=== PATIENT | female | born 1945 | race Caucasian/White ===

== ENCOUNTER → 2020-09-30 13:46 | Outpatient (BNVA) | payer MEDICARE, SELFPAY | PROVIDERS: PCP Internal Medicine; Visit Provider Internal Medicine ==

== ENCOUNTER → 2020-11-03 13:47 | Outpatient (REF) | payer MEDICARE, OTHER, SELFPAY ==
--- NOTE | 2020-11-03 14:00 | CA_ITS ---
Transthoracic Echocardiogram Patient (Last, First, Middle): Silvia Watson, Gender: Female Date of : 1945 Age: 75 Procedure Date: 11/03/2020 Procedure Type: Transthoracic Echocardiogram Location: OP Height: 162.56 cm Weight: 117.94 kg BSA: 2.19 m2 Heart Rate: bpm BP: 120 / 60 mmHg Wine Steward: ANTONIETA Vargas MD: Alberto Caceres MD Slip Cover Estimator: Alberto Caceres MD Symptoms: I35.0 NON RHEUMATIC AV STENOSIS Study Quality: Technically Difficult/contrast ECG Rhythm: Sinus Conclusions: - 1. Normal LV systolic function with mild LVH with impaired relaxation filling pattern with elevated filling pressures 2. Moderately dilated left atrium 3. Moderate to severe aortic stenosis with mean gradient of 39 mm mercury 4. No gross pericardial effusion Findings Procedure Information Contrast agent, definity, is being given per protocol without apparent complications. Left Ventricle Normal left ventricular size and systolic function. There is mildly increased left ventricular wall thickness. The visually estimated ejection fraction is between 65-70%. Spectral Doppler is indicative of an impaired relaxation filling pattern. Elevated filling pressures. E/E prime ratio is >15, consistent with elevated filling pressures. Right Ventricle Normal right ventricular cavity size and systolic function. Atria The left atrium is moderately dilated. Interatrial shunt cannot be excluded. The right atrium was not well visualized. Aortic Valve The aortic valve was not well visualized. There is moderate calcification of the aortic valve. There is moderate to severe aortic valve stenosis. The peak aortic gradient is 76 mmHg.The mean gradient is 39 mmHg. The aortic valve area is 0.91 cm2. There is no aortic valve regurgitation. Gradients measured on this study are further elevated compared to prior study, dimensionless index still remains at 0.27, consistent with moderate to severe aortic stenosis. Mitral Valve There is moderate anterior mitral leaflet thickening. There is severe mitral annular calcification. There is no mitral valve regurgitation. Cannot rule out mitral stenosis Pulmonic Valve The pulmonic valve was not well visualized. Tricuspid Valve The tricuspid valve was not well visualized. Tricuspid regurgitation envelope is inadequate for calculation of right ventricular systolic pressure. Great Vessels All visible segments of the aorta are normal in size. The pulmonary artery was not well visualized. Venous The inferior vena cava was not well visualized. Pericardium/Pleural There is no evidence of pericardial effusion. Prior Study Comparison No significant change compared to prior study dated: 01/16/2020. Measurements 2D Linear Measurements IVSd: 1.25 0.6-0.9/0.6-1.0 cm LVIDd: 4.62 3.9-5.3/4.2-5.9 cm LVIDd Index: 2.11 2.4-3.2/2.2-3.1 cm/m2 LVIDs: 3.19 2.0-3.6 cm LVPWd: 1.19 0.7-1.1 cm Ao Root: 3.00 2.1-3.5 cm LA Diam: 4.00 2.7-3.8/3.0-4.0 cm LAIDs Index: 1.83 1.5-2.3 cm/m2 LV Mass: 263.42 67-162/88-224 g LV Mass Index: 120.28 43-95/49-115 g/m2 LVOT Diam: 2.00 3.0+(-)1.3 cm Mitral Valve MV Pk E: 1.64 MV PK A: 2.12 MV Decel Time: 250.00 E/A: 0.80 E'Lateral: 6.67 E'Medial: 5.90 E/E' Med: 27.80 E/E' Lat: 24.60 PHT: 73.00 MVA PHT: 3.01 Decel [place]: 6.56 Aortic Valve AoV Pk Luis: 4.36 AoV Mn Luis: 2.84 AoV VTI: 0.87 AoV Pk Grad: 76.00 Aov Mn Grad: 39.00 MODE Cont.VTI: 0.91 LVOT LVOT Pk Luis: 1.29 LVOT Mn Luis: 0.75 LVOT VTI: 0.25 LVOT Pk Grad: 7.00 LVOT Mn Grad: 3.00 LVOT Diam: 2.00 LVOT Area: 3.14 Diastolic Function MV Pk E: 1.64 MV Pk A: 2.12 E/A: 0.80 E'Medial: 5.90 E/E' Med: 27.80 E' Laterial: 6.67 E/E' Lat: 24.60 Great Vessels Aorta Ao Root-2D: 3.00 2.0-3.7 cm Ao Asc: 3.10 2.1-3.4 cm Updated in Other Vendor System with Status of Final Alberto Caceres MD electronically signed on 11/03/2020 4:31:00 PM with status of Final
== END ==
LOC: HO.CARD 13:47
PROVIDERS: Visit Provider Internal Medicine Cardiovascular Disease
DX: I35.0 Nonrheumatic aortic (valve) stenosis (principal)
CPT/HCPCS: 93306; Q9957

== ENCOUNTER → 2020-11-17 13:33 | Outpatient (BNVA) | payer MEDICARE, OTHER, SELFPAY | PROVIDERS: Visit Provider Internal Medicine Cardiovascular Disease | DX: R06.02 Shortness of breath (principal); I35.0 Nonrheumatic aortic (valve) stenosis; I10 Essential (primary) hypertension; Z79.899 Other long term (current) drug therapy | CPT/HCPCS: 99212 ==

== ENCOUNTER → 2021-02-02 10:25 | Outpatient (BNVA) | payer MEDICARE, OTHER, SELFPAY | PROVIDERS: PCP Internal Medicine; Visit Provider Internal Medicine | DX: J44.9 Chronic obstructive pulmonary disease, unspecified (principal); G47.33 Obstructive sleep apnea (adult) (pediatric); G47.34 Idiopathic sleep related nonobstructive alveolar hypoventilation; F17.200 Nicotine dependence, unspecified, uncomplicated | CPT/HCPCS: Q3014 ==

== ENCOUNTER 2021-04-14 14:30 | Outpatient (REF) | payer MEDICARE, OTHER, SELFPAY ==
--- NOTE | ~2021-04-14 | CT_ITS ---
EXAMINATION: CT CHEST SCREENING CLINICAL INFORMATION: Current smoker. 100 pack-year history. COMPARISON: Previous chest CT scans most recent September 2019 TECHNIQUE: Multidetector volumetric CT imaging of the chest is performed without contrast using low dose technique. Additional 2D coronal and sagittal reformatted images and axial 3D maximum intensity projection (MIP) images are generated on the CT workstation. This CT examination was performed using dose optimization techniques as appropriate, variously including the following: *Automated exposure control *Adjustment of mA and/or kV according to patient size (this includes techniques or standardized protocols for targeted exams where dose is matched to indication/reason for exam; i.e. extremities or head) *Use of iterative reconstruction technique DLP: 118 mGy-cm FINDINGS: LUNGS: Exam is limited due to artifact from respiratory motion. There are small upper lobe micronodules, largest measuring 4 mm in the left upper lobe axial image 143 series 5. There is minimal scarring or subsegmental atelectasis in the right middle lobe. The lungs are otherwise clear. No endobronchial or endotracheal lesion is seen. MEDIASTINUM: There is mediastinal lymphadenopathy that is stable. Largest lymph node is a right precarinal lymph node measuring 1.4 cm in short axis axial image 23. The heart does not appear enlarged. There is coronary artery and aortic valve calcification. There is no pericardial effusion. The thoracic aorta is normal in caliber. PLEURA: There is no pleural effusion. No pleural mass or thickening. AXILLA: No lymphadenopathy. UPPER ABDOMEN: Unremarkable OSSEOUS STRUCTURES: There are degenerative changes of the spine. CT/CT lung screening IMPRESSION: Limited exam due to motion. Small pulmonary nodules or micronodules. Stable mediastinal lymphadenopathy. Coronary artery and aortic valve calcification. ASSESSMENT: Lung-RADS category 2: Benign RECOMMENDATION: Annual low-dose chest CT follow-up recommended.
== END 2021-04-14 14:31 | disposition home or self-care (01) ==
LOC: HO.CT 14:30
PROVIDERS: PCP Internal Medicine; Visit Provider Physician Assistant Medical
DX: Z12.2 Encounter for screening for malignant neoplasm of respiratory organs (principal); F17.210 Nicotine dependence, cigarettes, uncomplicated
CPT/HCPCS: 71271

== ENCOUNTER → 2021-05-14 13:03 | Outpatient (REF) | payer MEDICARE, OTHER, SELFPAY ==
--- NOTE | 2021-05-14 13:07 | CA_ITS ---
Transthoracic Echocardiogram Patient (Last, First, Middle): Silvia Watson, Gender: Female Date of : 1945 Age: 75 Procedure Date: 05/14/2021 Procedure Type: Transthoracic Echocardiogram Location: OP Height: 162.56 cm Weight: 117.94 kg BSA: 2.19 m2 Heart Rate: bpm BP: 120 / 80 mmHg Film Laboratory Technician: ANTONIETA Referring MD: Alberto Caceres MD Small Appliance Assembly Supervisor: Alberto Caceres MD Symptoms: I35.0 - Nonrheumatic aortic (valve) stenosis Study Quality: Technically Difficult/Contrast ECG Rhythm: Sinus Conclusions: - 1. Normal LV systolic function with impaired relaxation filling pattern with elevated filling pressures 2. Moderately dilated left atrium 3. Severe aortic stenosis with mean gradient of 50 mm of mercury 4. 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 Normal RV systolic pressure 6. No gross pericardial effusion Findings Left Ventricle Normal left ventricular size, thickness, and systolic function. The visually estimated ejection fraction is between 60-65%. Spectral Doppler is indicative of an impaired relaxation filling pattern. Elevated filling pressures. E/E prime ratio is >15, consistent with elevated filling pressures. Right Ventricle Normal right ventricular cavity size and systolic function. Atria The left atrium is moderately dilated. Interatrial shunt cannot be excluded. The right atrium is mildly dilated. Aortic Valve There is moderate calcification of the aortic valve. There is moderate thickening of the aortic valve. There is severe aortic valve stenosis. The peak aortic gradient is 82 mmHg.The mean gradient is 50 mmHg. The aortic valve area is 0.72 cm2. There is no aortic valve regurgitation. Mitral Valve There is moderate anterior and severe posterior mitral leaflet thickening. There is severe mitral annular calcification. There is trace mitral valve regurgitation. There is mild mitral valve stenosis. Pulmonic Valve The pulmonic valve was not well visualized. Tricuspid Valve Likely normal tricuspid valve structure and function. There is mild tricuspid valve regurgitation. The right ventricular systolic pressure is normal. The right ventricular systolic pressure is 17 mmHg. Normal right atrial pressure. There is no evidence of pulmonary hypertension. Great Vessels All visible segments of the aorta are normal in size. The pulmonary artery was not well visualized. Venous The inferior vena cava is normal in size and collapses greater than 50% with inspiration. Pericardium/Pleural There is no evidence of pericardial effusion. Prior Study Comparison Changes noted compared to prior study dated: 11/03/2020. Aortic stenosis is severe Measurements 2D Linear Measurements IVSd: 0.92 0.6-0.9/0.6-1.0 cm LVIDd: 5.51 3.9-5.3/4.2-5.9 cm LVIDd Index: 2.52 2.4-3.2/2.2-3.1 cm/m2 LVIDs: 3.73 2.0-3.6 cm LVPWd: 1.03 0.7-1.1 cm Ao Root: 2.70 2.1-3.5 cm LA Diam: 4.20 2.7-3.8/3.0-4.0 cm LAIDs Index: 1.92 1.5-2.3 cm/m2 LV Mass: 257.97 67-162/88-224 g LV Mass Index: 117.79 43-95/49-115 g/m2 LVOT Diam: 2.00 3.0+(-)1.3 cm Mitral Valve MV VTI: 0.51 MV Pk Luis: 2.24 MV Mn Luis: 1.21 MV Pk Grad: 20.00 MV Mn Grad: 7.00 MV Pk E: 1.40 MV PK A: 2.01 MV Decel Time: 311.00 E/A: 0.70 E'Lateral: 5.00 E'Medial: 4.79 E/E' Med: 29.20 E/E' Lat: 28.00 PHT: 97.00 MVA PHT: 2.27 MVA Continuity: 1.28 Decel [place]: 4.72 Aortic Valve AoV Pk Luis: 4.53 AoV Mn Luis: 3.39 AoV VTI: 0.92 AoV Pk Grad: 82.00 Aov Mn Grad: 50.00 MODE Cont.VTI: 0.72 LVOT LVOT Pk Luis: 1.04 LVOT Mn Luis: 0.74 LVOT VTI: 0.21 LVOT Pk Grad: 4.00 LVOT Mn Grad: 3.00 LVOT Diam: 2.00 LVOT Area: 3.14 Diastolic Function MV Pk E: 1.40 MV Pk A: 2.01 E/A: 0.70 E'Medial: 4.79 E/E' Med: 29.20 E' Laterial: 5.00 E/E' Lat: 28.00 Right Ventricle TAPSE (mm): 2.14 TVS' Luis: 15.60 Tricuspid Valve TR Pk Luis: 1.90 TR Pk Grad: 14.00 RA Press: 3.00 RVSP: 17.00 Great Vessels Aorta Ao Root-2D: 2.70 2.0-3.7 cm Ao Asc: 2.80 2.1-3.4 cm Updated in Other Vendor System with Status of Final Alberto Caceres MD electronically signed on 05/15/2021 3:52:08 PM with status of Final
== END ==
LOC: HO.CARD 13:03
PROVIDERS: PCP Internal Medicine; Visit Provider Internal Medicine Cardiovascular Disease
DX: I35.0 Nonrheumatic aortic (valve) stenosis (principal)
CPT/HCPCS: 93306; Q9957

== ENCOUNTER → 2021-05-21 10:27 | Outpatient (BNVA) | payer MEDICARE, OTHER, SELFPAY | PROVIDERS: PCP Internal Medicine; Visit Provider Internal Medicine Cardiovascular Disease | DX: I35.0 Nonrheumatic aortic (valve) stenosis (principal); I10 Essential (primary) hypertension | CPT/HCPCS: 93005; 99212 ==

== ENCOUNTER → 2021-05-28 13:13 | Outpatient (BNVA) | payer MEDICARE, OTHER, SELFPAY | PROVIDERS: PCP Internal Medicine; Visit Provider Internal Medicine | DX: J96.91 Respiratory failure, unspecified with hypoxia (principal); J44.9 Chronic obstructive pulmonary disease, unspecified; I35.0 Nonrheumatic aortic (valve) stenosis; I10 Essential (primary) hypertension; E66.01 Morbid (severe) obesity due to excess calories; G47.33 Obstructive sleep apnea (adult) (pediatric); G47.34 Idiopathic sleep related nonobstructive alveolar hypoventilation; F17.210 Nicotine dependence, cigarettes, uncomplicated; Z68.42 Body mass index [BMI] 45.0-49.9, adult; Z88.0 Allergy status to penicillin; Z88.8 Allergy status to other drugs, medicaments and biological substances; Z91.030 Bee allergy status; Z79.84 Long term (current) use of oral hypoglycemic drugs; Z79.899 Other long term (current) drug therapy | CPT/HCPCS: 99212 ==

== ENCOUNTER 2021-06-03 14:34 | Outpatient (REF) | payer MEDICARE, OTHER, SELFPAY ==
[2021-06-03 15:19] LABS: Hematocrit 35.2 % (37.0-47.0); Mean Corpuscular HGB Conc 31.3 g/dl (31.0-35.0); Mean Corpuscular Hemoglobin 27.5 pg (27.0-33.0); Mean Platelet Volume 8.8 fL (9.4-12.3); Platelet Count 255 X10*3/uL (160-400); White Blood Count 11.1 X10*3/uL (4.8-10.8)
[2021-06-03 15:26] LABS: Prothrombin Time 11.7 SEC (9.9-13.0)
[2021-06-03 15:39] LABS: Anion Gap 15 (12-20); Blood Urea Nitrogen 13 mg/dL (9-16); Calcium 8.8 mg/dL (8.4-10.2); Carbon Dioxide 26 mmol/L (22-29); Chloride 103 mmol/L (96-108); Estimated Glomerular Filt Rate > 60; Glucose Random 133 mg/dL (60-115); Potassium 4.7 mmol/L (3.3-5.1); Sodium 139 mmol/L (135-145)
== END 2021-06-03 14:35 | disposition home or self-care (01) ==
LOC: HO.LAB 14:34
PROVIDERS: PCP Internal Medicine; Visit Provider Internal Medicine Cardiovascular Disease
DX: I35.0 Nonrheumatic aortic (valve) stenosis (principal)
CPT/HCPCS: 36415; 80048; 85027; 85610

== ENCOUNTER → 2021-06-18 14:57 | Outpatient (BNVA) | payer MEDICARE, OTHER, SELFPAY | PROVIDERS: PCP Internal Medicine; Visit Provider Internal Medicine Cardiovascular Disease | DX: I35.0 Nonrheumatic aortic (valve) stenosis (principal) | CPT/HCPCS: 99212 ==

== ENCOUNTER 2021-10-21 16:01 | Emergency (ER) | payer MEDICARE, OTHER, SELFPAY ==
--- NOTE | ~2021-10-21 | CT_ITS ---
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 Axial MIP volume rendering provided. Sagittal and coronal reformatted images were obtained. This CT examination was performed using dose optimization techniques as appropriate, variously including the following: *Automated exposure control *Adjustment of mA and/or kV according to patient size (this includes techniques or standardized protocols for targeted exams where dose is matched to indication/reason for exam; i.e. extremities or head) *Use of iterative reconstruction technique DLP: 700 mGy-cm FINDINGS: LUNGS: Some small lung nodules are again seen and unchanged. Bibasilar atelectasis is seen. No consolidations. No evidence of pulmonary edema. MEDIASTINUM: Prominent mediastinal nodes are stable reactive. A TAVR is seen. Extensive coronary calcification is present. PLEURA: There is no pleural effusion. No pleural mass or thickening. AXILLA: No lymphadenopathy. UPPER ABDOMEN: Unremarkable OSSEOUS STRUCTURES: Degenerative changes are present throughout the spine. No acute finding or bony destructive lesions. CT/CT chest w con IMPRESSION: No acute intrathoracic disease. Fleischner guidelines were followed.
--- NOTE | ~2021-10-21 | CT_ITS ---
EXAMINATION: CT ANGIOGRAM HEAD CT ANGIOGRAM NECK CLINICAL INFORMATION: Numbness. Shortness of breath. Reason TAVR. COMPARISON: CT head from 11/09/2019. CTA head and neck from 12/13/2018. TECHNIQUE: Initial noncontrast sample body builder imaging of the head and neck was performed. Noncontrast head CT was also performed. Test bolus sequences followed by intravenous administration 70 mL of Omnipaque 350. Helical imaging was performed in the axial plane from the aortic arch to the skull vertex. Delayed postcontrast imaging of the head was also performed. The data was processed at the electrical engineering technologist's workstation for generation of MIP sequences. Angled MIPs and volume rendered reformatted images were also generated at an offline 3D workstation. Stenoses are assessed in accordance with NASCET criteria unless otherwise indicated. This CT examination was performed using dose optimization techniques as appropriate, variously including the following: *Automated exposure control. *Adjustment of mA and/or kV according to patient size (this includes techniques or standardized protocols for targeted exams where dose is matched to indication/reason for exam; i.e. extremities or head). *Use of iterative reconstruction technique. DLP: 3180 mGy-cm FINDINGS: CT Head: There is no evidence of acute intracranial hemorrhage or edematous territorial infarction. Scattered hypoattenuation in the periventricular and deep white matter are consistent with moderate microangiopathy. Mir-white matter differentiation is preserved. Proportional prominence of the ventricles and sulcal spaces. No evidence for obstructive hydrocephalus. The sella turcica is partially expanded with flattening of the pituitary gland. Normal positioning of the cerebellar tonsils. No abnormal mass effect or midline shift. No extra-axial fluid collections. No pathologic intra-axial enhancement or regional oligemia. No acute soft tissue or osseous abnormalities. Mild mucosal thickening of the paranasal sinuses. The mastoid air cells and middle ear cavities are clear. The patient is edentulous. Bilateral lens extractions. CT Neck: The thyroid gland and remaining cervical soft tissues are within normal limits. Mild degenerative retrolisthesis of C4 and C5. Advanced degenerative disc disease from C4-C7 with disc/osteophyte complex formation. Facet and uncovertebral joint arthropathy leads to osseous encroachment on the neural foramina from C4-C7. CT Upper Chest: Nonspecific mildly prominent mediastinal lymph nodes, measuring up to 1.2 cm in the aortopulmonary window and 1.1 cm in the lower right paratracheal station. Otherwise, the Visualized lung apices and upper mediastinum are within normal limits. Neck CTA: Significantly motion degraded exam. Aortic Arch: Changes of recent TAVR. Normal contour and caliber with moderate calcific atherosclerotic disease. Two vessel branching pattern of the arch with left common carotid artery arising from the brachiocephalic trunk. Great Vessel Origins: Motion degradation partially limits evaluation. Atherosclerotic disease at the origins of the great vessels appears to cause less than 50% stenoses. Common Carotid Arteries: No focal stenosis or occlusion. Cervical Internal Carotid Arteries: There is heavy calcific atherosclerotic disease of the carotid bulbs bilaterally. Significant motion artifact limits quantification of stenoses; however, there appears to be moderate to high-grade stenosis of the proximal right ICA and likely moderate stenosis of the proximal left ICA. Retropharyngeal courses of the internal carotid arteries bilaterally. Cervical Right Vertebral Artery: Co-dominant. No focal stenosis or occlusion. Cervical Left Vertebral Artery: Co-dominant. No focal stenosis or occlusion. Brain CTA: Intracranial Internal Carotid Arteries: Calcific atherosclerotic disease of the intracranial internal carotid arteries without occlusion or flow-limiting stenosis. Right Anterior Cerebral Artery: The A1 segment is diminutive. Normal opacification of the distal JASWANT segments. Left Anterior Cerebral Artery: Normal A1 segment. Normal opacification of the distal JASWANT segments. Anterior Communicating Artery: Normal. Right Middle Cerebral Artery: Normal M1 segment of the MCA without focal stenosis or occlusion. Normal arborization of the distal segments. Left Middle Cerebral Artery: Normal M1 segment of the MCA without focal stenosis or occlusion. Normal arborization of the distal segments. Right Vertebral Artery: Normal V4 segment. Normal opacification of the proximal segments of the posterior inferior cerebellar artery. Left Vertebral Artery: Normal V4 segment. Normal opacification of the proximal segments of the posterior inferior cerebellar artery. Basilar Artery: Normal without focal stenosis or occlusion. Normal appearance of the proximal superior cerebellar arteries. Right Posterior Cerebral Artery: Normal P1 segment. Normal opacification of the distal MACHINE ETCHER segments. Left Posterior Cerebral Artery: Normal P1 segment. Normal opacification of the distal MACHINE ETCHER segments. Normal opacification of the superior sagittal, straight, transverse, and sigmoid sinuses. CT/CT angio head neck IMPRESSION: 1. No evidence of acute intracranial hemorrhage or edematous territorial infarction. Moderate underlying microangiopathy and generalized cerebral volume loss. 2. Significant motion degradation on CTA of the head and neck. There is no demonstrated proximal occlusion. Heavy calcific atherosclerotic disease of the carotid bulbs and proximal internal carotid arteries appears to cause moderate to severe stenosis of the origin of the right ICA and moderate stenosis of the origin of the left ICA (further quantification would likely be inaccurate on this exam secondary to motion artifact). No demonstrated additional flow-limiting stenoses. 3. Moderate multilevel degenerative spondyloarthropathy of the cervical spine.
--- NOTE | ~2021-10-21 | XR_ITS ---
EXAMINATION: PORTABLE CHEST 1 VIEW CLINICAL INFORMATION: dyspnea . COMPARISON: 12/13/2018. TECHNIQUE: Portable frontal view of the chest was obtained. FINDINGS: The lungs are well expanded. No focal infiltrate, effusion, edema, or pneumothorax. Cardiac and mediastinal silhouettes are within normal limits for size. TAVR stent is noted. No acute bony abnormality seen. XR/XR chest 1V IMPRESSION: TAVR stent. No focal airspace disease or overt edema.
--- NOTE | 2021-10-21 16:28 | ECG_ITS ---
Test Reason : FALL Blood Pressure : / mmHG Vent. Rate : 092 BPM Atrial Rate : 092 BPM P-R Int : 152 ms QRS Dur : 090 ms QT Int : 370 ms P-R-T Axes : 052 -01 087 degrees QTc Int : 457 ms Normal sinus rhythm Normal ECG When compared with ECG of 13-DEC-2018 00:42, No significant change was found Referred By: Generic ED Physician Electronically Signed By:Yung Mendenhall
[2021-10-21 16:31] VITALS: BP 158/55; PULSE 107; RESP 25; TEMP 36.8; O2SAT 98; BMI 41.3
[2021-10-21 17:00] LABS: MANUAL DIFF FLAG NO
[2021-10-21 17:04] LABS: Basophils Absolute Auto 0.1 X10*3/uL (0.0-0.2); Basophils Percent Auto 0.5 % (0-2); Eosinophils Absolute Auto 0.2 X10*3/uL (0.0-0.4); Hematocrit 36.3 % (37.0-47.0); Hemoglobin 11.4 g/dl (12.0-16.0); Imm Gran Abs Auto 0.04 X10*3/uL (0.00-0.03); Imm Gran Pct Auto 0.4 % (0.0-0.4); Lymphocytes Absolute Auto 1.6 X10*3/uL (1.2-4.9); Lymphocytes Percent Auto 16.2 % (20-40); Mean Corpuscular HGB Conc 31.4 g/dl (31.0-35.0); Mean Corpuscular Hemoglobin 26.9 pg (27.0-33.0); Mean Corpuscular Volume 85.6 fL (80.0-98.0); Mean Platelet Volume 8.8 fL (9.4-12.3); Monocytes Absolute Auto 0.5 X10*3/uL (0.1-1.2); Monocytes Percent Auto 5.3 % (2-11); Neutrophils Absolute Auto 7.6 x10*3/uL (2.0-8.3); Neutrophils Percent Auto 75.6 % (45-73); Platelet Count 275 X10*3/uL (160-400); Red Blood Count 4.24 X10*6/uL (4.20-5.50); Red Cell Distribution Width 14.7 % (11.0-16.0); White Blood Count 10.1 X10*3/uL (4.8-10.8)
[2021-10-21 17:16] LABS: Anion Gap 18 (12-20); Blood Urea Nitrogen 11 mg/dL (9-16); Calcium 9.2 mg/dL (8.4-10.2); Carbon Dioxide 25 mmol/L (22-29); Chloride 101 mmol/L (96-108); Creatinine Clr Calc Pharmacy 68.1; Estimated Glomerular Filt Rate > 60; Glucose Random 195 mg/dL (60-115); Potassium 4.9 mmol/L (3.3-5.1); Sodium 139 mmol/L (135-145)
[2021-10-21 17:29] LABS: Troponin-I High Sensitivity 77.7 ng/L (<3.5-17.0)
[2021-10-21 17:44] LABS: B Type Natriuretic Peptide 32 pg/mL (<100)
--- NOTE | 2021-10-21 19:05 | ED_ITS ---
HPI - SOB/Dyspnea General Chief Complaint: Weakness Stated Complaint: numbness on hands/and legs Source: patient Mode of arrival: ambulatory Limitations: no limitations History of Present Illness HPI Narrative: 76-year-old female presents for shortness of breath, weakness, numbness that started this morning radiating to her entire body and fatigue. She reports intermittent numbness and tingling over the past month. She was supposed to have a echocardiogram today however she was too ill to present to that test. MD elicited complaint: shortness of breath and anxiety Pertinent past history: COPD, congestive heart failure and diabetes Onset (ago): day(s) Context: other (TAVR 09/11/2021) Timing: constant Severity: moderate Exacerbating factors: exertion, movement, coughing, stress and talking Relieving factors: rest Known history of: COPD, congestive heart failure and diabetes Associated symptoms: cough, wheezing, palpitations, dizziness and other (Numbne ss) Treatment prior to arrival: none Related Data Home oxygen amount: as needed at night Home Medications Medication Instructions Recorded Confirmed albuterol sulfate 90 mcg/actuation INHALATION 05/29/20 06/18/21 aerosol inhaler atorvastatin 40 mg tablet 40 mg PO DAILY 05/29/20 06/18/21 clopidogrel 75 mg tablet 75 mg PO DAILY 05/29/20 06/18/21 glipizide 10 mg tablet 10 mg PO BID 05/29/20 06/18/21 ibuprofen 800 mg tablet 800 mg PO TID 05/29/20 06/18/21 insulin syringe-needle U-100 0.5 #10 ea 05/29/20 06/18/21 mL 31 gauge x 5/16 losartan 100 1 tab PO DAILY 05/29/20 06/18/21 mg-hydrochlorothiazide 25 mg tablet amitriptyline 100 mg tablet 100 mg PO BEDTIME tab 09/30/20 06/18/21 exenatide microspheres 2 mg/0.65 mg SUBCUT QWEEK 09/30/20 06/18/21 mL subcutaneous pen injector furosemide 40 mg tablet 40 mg PO DAILY PRN 09/30/20 06/18/21 insulin glargine 100 unit/mL 104 unit SUBCUT QPM ml 09/30/20 06/18/21 subcutaneous solution Previous Rx's Medication Instructions Recorded fluticasone propionate 230 2 puff INHALATION BID #36 g 04/13/21 mcg-salmeterol 21 mcg/actuation HFA inhaler (Advair HFA) Allergies Allergy/AdvReac Type Severity Reaction Status Date / Time bee pollen [BEE STINGS] Allergy Intermediate SWELLING Verified 10/21/21 16:36 cyclobenzaprine Allergy Mild UNKNOWN Verified 10/21/21 16:36 [From Flexeril] Penicillins Allergy Mild UNKNOWN Verified 10/21/21 16:36 metformin [From GLUCOPHAGE] Allergy Unknown SEVER Verified 10/21/21 16:36 DIARRHEA Review of Systems Review of Systems: Constitutional: No Fever, No Chills ENT/Mouth: No sore throat, No Rhinorrhea, No Swallowing Difficulty Eyes: No Eye Pain, No Swelling, No Redness Cardiovascular: No Chest Pain, positive SOB, No Orthopnea, positive Edema Respiratory: No Cough, No Sputum, No Wheezing, positive dyspnea Gastrointestinal: No Nausea, No Vomiting, No Diarrhea, No abdominal Pain, No Hematochezia, No Melena Genitourinary: No Dysuria, No Urinary Frequency, No Hematuria Musculoskeletal: No joint pain, No Myalgias Skin: No Skin Lesions, No rash Neuro: Positive Weakness, positive Numbness, positive Dizziness, No Headache Psych: No Anxiety/Panic, No Depression Heme/Lymph: No Bruising, No Lymphadenopathy Endocrine: No Polyuria, No Polydipsia Yes all other systems are reviewed and are negative [facility] Past Medical History Attestation statement: The following information was validated with the patient. Source: old records reviewed Medical History Aortic stenosis COPD (chronic obstructive pulmonary disease) Diabetes HTN (hypertension) Nocturnal hypoxemia SHANNON (obstructive sleep apnea) Seizure Smoker Stroke Vertigo Surgical History Retained myringotomy tube in left ear Family History Family History Father No problems noted. Mother No problems noted. Social History Social History Cigarette Packs Per Day: 2 Cigarettes Per Day: 40 Years Smoked: started at 27 years old Advance Directives: No Advance Directives Information Provided: No Physical Exam Vital Signs: Vital Signs: Last Vital Signs Temp 98.1 F 10/22/21 00:00 Pulse 87 10/22/21 00:00 Resp 25 H 10/22/21 00:00 BP 123/85 10/22/21 00:00 Pulse Ox 99 10/22/21 00:00 BMI result Body Mass Index 41.3 Appearance: Alert. Oriented X3. Moderate distress. Head: Normal external exam. Normocephalic. Atraumatic. No Hernandez signs noted. No raccoon eyes noted Eyes: PERRLA. EOMI. Conjunctiva and sclera normal. Eyelids normal. ENT: TM's Normal. Pharynx normal. Uvula midline. Moist mucous membranes. No trismus noted. No drooling noted. No muffled voice noted. Neck: Normal inspection. Neck supple. No adenopathy. CVS: Tachycardic heart rate and rhythm. Pulses equal to all extremities. Respiratory: Moderate respiratory distress. Tachypneic at 24 breaths per minute. Painless inspiration. Wheezing with decreased air movement noted. Chest nontender. Abdomen: Morbidly obese. Soft and nontender. Bowel sounds normal in all 4 quadrants. No distention noted. No visible injury noted. Back: No CVA tenderness. Full range of motion noted. Skin: Skin warm and dry. Normal skin color. Normal skin turgor. No rashes/lesions/lacerations noted. Extremities: Nonpitting bilateral lower extremity edema. Extremities exhibit normal range of motion. Extremities nontender. Neuro: cranial nerves 2-12 intact, no focal neural deficits, strength 5/5 to all extremities, No motor deficit. No sensory deficit. NIH Stroke Scale Internal: Initial- Upon Arrival Level of Consciousness: Alert Level of Consciousness Questions: Answers both questions correctly Level of Consciousness Commands: Performs both tasks correctly Best Gaze: Normal Visual: No visual loss Facial Palsy: Normal Motor Arm (Right): No drift Motor Arm (Left): No drift Motor Leg (Right): No drift Motor Leg (Left): No drift Limb Ataxia: Absent Sensory: Normal Best Language: No aphasia Dysarthia: Normal Extinction and Inattention: No abnormality Score: 0 Course Course Course Narrative: 76-year-old female presents with weakness, numbness, shortness of breath, shortness of breath on exertion, and overall unwell feeling. Had a TAVR on 09/11/2021 at [facility] for severe aortic stenosis. Labs were drawn while patient was in the emergency department waiting room, noted to have an elevated troponin at 77.7 with a normal EKG. Patient noted that she had increased edema bilateral lower extremities. Does not report fevers, chills, pain on inspiration, trauma, syncope, near syncope, changes in vision or any other concerning symptoms. Will order CTA of head neck, PE study. 20:00 [facility] records reviewed. 20:40 2nd troponin elevated at 91. I repeated EKG at that time which reading indicated ST depression in the anterior leads I did discuss this with Cardi ology. Dr Mendenhall does not feel that these findings are significant for ACS at this time. 23:50 CTA of head is negative, shows heavy calcific atherosclerosis the carotid bulbs and proximal internal carotid arteries. Moderate to severe stenosis of the right ICA and moderate stenosis of the left ICA. Chest CT is negative. Radiology inform me that they would not be able to do CTA of head and PE study at the same time secondary to contrast dye volume. 01:00 discussion with hospitalist, hospitalist would like 3rd troponin and D- dimer. 01:52 D-dimer is elevated at 404, age adjusted D-dimer cut off is 760. Third troponins 83.5. Plan is to repeat troponin morning. 02:15 patient is speaking in complete sentences. Looks well rested, and in no distress. I did discuss all of her findings in detail, with strong recommendation to follow up with Cardiology as well as her primary care physic kenneth. She must continue with her echocardiogram, she did verbalize understanding. Patient was offered case Management protective services social worker however respectfully declined and would like to be discharged home.Patient verbalized understanding of and agrees to plan of care to discharge home. Verbalized unde rstanding of signs and symptoms indicating need for emergent intervention Consultations Consultation #1: Abdirashid Time: 21:50 Consultation #2: Emy Time: 01:00 MDM - SOB/Dyspnea Differential Diagnosis Differential diagnosis: Likely acute exacerbation of chronic obstructive airways disease, congestive heart failure, pneumonia, asthma with exacerbation and pulmonary embolism Medical Records Attestation: I reviewed the patient's medical records. Lab Data Attestation: I reviewed the patient's lab results. Result diagrams: 10/21/21 16:53 10/21/21 16:53 Labs: Lab Results 10/21/21 10/21/21 10/21/21 Range/Units 16:53 16:53 16:53 WBC 10.1 (4.8-10.8) X10*3/uL RBC 4.24 (4.20-5.50) X10*6/uL Hgb 11.4 L (12.0-16.0) g/dl Hct 36.3 L (37.0-47.0) % MCV 85.6 (80.0-98.0) fL MCH 26.9 L (27.0-33.0) pg MCHC 31.4 (31.0-35.0) g/dl RDW 14.7 (11.0-16.0) % Plt Count 275 (160-400) X10*3/uL MPV 8.8 L (9.4-12.3) fL Immature Gran % (Auto) 0.4 (0.0-0.4) % Neut % (Auto) 75.6 H (45-73) % Lymph % (Auto) 16.2 L (20-40) % [place] % (Auto) 5.3 (2-11) % Eos % (Auto) 2.0 (0-4) % Baso % (Auto) 0.5 (0-2) % Lymph # (Auto) 1.6 (1.2-4.9) X10*3/uL [place] # (Auto) 0.5 (0.1-1.2) X10*3/uL Eos # (Auto) 0.2 (0.0-0.4) X10*3/uL Baso # (Auto) 0.1 (0.0-0.2) X10*3/uL Abs Immat Gran (auto) 0.04 H (0.00-0.03) X10*3/uL Absolute Neuts (auto) 7.6 (2.0-8.3) x10*3/uL Absolute Nucleated RBC 0.000 (0.0-0.012) X10*3/uL Nucleated RBC % (auto) 0.0 (0.0-0.2) /100WBC D-Dimer High Sensitivty NG/ML Sodium 139 (135-145) mmol/L Potassium 4.9 (3.3-5.1) mmol/L Chloride 101 (96-108) mmol/L Carbon Dioxide 25 (22-29) mmol/L Anion Gap 18 (12-20) BUN 11 (9-16) mg/dL Creatinine 0.91 (0.5-1.4) mg/dL Estim Creat Clear Calc 68.1 Estimated GFR > 60 Random Glucose 195 H (60-115) mg/dL Calcium 9.2 (8.4-10.2) mg/dL Total Creatine Kinase (26-140) U/L Troponin I High Sens 77.7 H* (<3.5-17.0) ng/L B-Natriuretic Peptide 32 (<100) pg/mL Urine Color Urine Appearance Urine pH (5.0-8.0) Ur Specific [place] (1.005-1.025) Urine Protein (NEG-TRACE) MG/DL Urine Glucose (UA) (NEG) MG/DL Urine Ketones (NEG) MG/DL Urine Blood (NEG) Urine Nitrite (NEG) Ur Leukocyte Esterase (NEG) Influenza Type A (PCR) (Negative) Influenza Type B (PCR) (Negative) RSV RNA Qual (PCR) (Negative) SARS-CoV-2 RNA (RT-PCR) (Negative) 10/21/21 10/21/21 10/21/21 Range/Units 20:22 20:22 20:48 WBC (4.8-10.8) X10*3/uL RBC (4.20-5.50) X10*6/uL Hgb (12.0-16.0) g/dl Hct (37.0-47.0) % MCV (80.0-98.0) fL MCH (27.0-33.0) pg MCHC (31.0-35.0) g/dl RDW (11.0-16.0) % Plt Count (160-400) X10*3/uL MPV (9.4-12.3) fL Immature Gran % (Auto) (0.0-0.4) % Neut % (Auto) (45-73) % Lymph % (Auto) (20-40) % [place] % (Auto) (2-11) % Eos % (Auto) (0-4) % Baso % (Auto) (0-2) % Lymph # (Auto) (1.2-4.9) X10*3/uL [place] # (Auto) (0.1-1.2) X10*3/uL Eos # (Auto) (0.0-0.4) X10*3/uL Baso # (Auto) (0.0-0.2) X10*3/uL Abs Immat Gran (auto) (0.00-0.03) X10*3/uL Absolute Neuts (auto) (2.0-8.3) x10*3/uL Absolute Nucleated RBC (0.0-0.012) X10*3/uL Nucleated RBC % (auto) (0.0-0.2) /100WBC D-Dimer High Sensitivty NG/ML Sodium (135-145) mmol/L Potassium (3.3-5.1) mmol/L Chloride (96-108) mmol/L Carbon Dioxide (22-29) mmol/L Anion Gap (12-20) BUN (9-16) mg/dL Creatinine (0.5-1.4) mg/dL Estim Creat Clear Calc Estimated GFR Random Glucose (60-115) mg/dL Calcium (8.4-10.2) mg/dL Total Creatine Kinase 78 (26-140) U/L Troponin I High Sens 91.3 H* (<3.5-17.0) ng/L B-Natriuretic Peptide (<100) pg/mL Urine Color Urine Appearance Urine pH (5.0-8.0) Ur Specific [place] (1.005-1.025) Urine Protein (NEG-TRACE) MG/DL Urine Glucose (UA) (NEG) MG/DL Urine Ketones (NEG) MG/DL Urine Blood (NEG) Urine Nitrite (NEG) Ur Leukocyte Esterase (NEG) Influenza Type A (PCR) NEGATIVE (Negative) Influenza Type B (PCR) NEGATIVE (Negative) RSV RNA Qual (PCR) NEGATIVE (Negative) SARS-CoV-2 RNA (RT-PCR) NEGATIVE (Negative) 10/21/21 10/22/21 10/22/21 Range/Units 21:04 01:06 01:06 WBC (4.8-10.8) X10*3/uL RBC (4.20-5.50) X10*6/uL Hgb (12.0-16.0) g/dl Hct (37.0-47.0) % MCV (80.0-98.0) fL MCH (27.0-33.0) pg MCHC (31.0-35.0) g/dl RDW (11.0-16.0) % Plt Count (160-400) X10*3/uL MPV (9.4-12.3) fL Immature Gran % (Auto) (0.0-0.4) % Neut % (Auto) (45-73) % Lymph % (Auto) (20-40) % [place] % (Auto) (2-11) % Eos % (Auto) (0-4) % Baso % (Auto) (0-2) % Lymph # (Auto) (1.2-4.9) X10*3/uL [place] # (Auto) (0.1-1.2) X10*3/uL Eos # (Auto) (0.0-0.4) X10*3/uL Baso # (Auto) (0.0-0.2) X10*3/uL Abs Immat Gran (auto) (0.00-0.03) X10*3/uL Absolute Neuts (auto) (2.0-8.3) x10*3/uL Absolute Nucleated RBC (0.0-0.012) X10*3/uL Nucleated RBC % (auto) (0.0-0.2) /100WBC D-Dimer High Sensitivty 404 NG/ML Sodium (135-145) mmol/L Potassium (3.3-5.1) mmol/L Chloride (96-108) mmol/L Carbon Dioxide (22-29) mmol/L Anion Gap (12-20) BUN (9-16) mg/dL Creatinine (0.5-1.4) mg/dL Estim Creat Clear Calc Estimated GFR Random Glucose (60-115) mg/dL Calcium (8.4-10.2) mg/dL Total Creatine Kinase (26-140) U/L Troponin I High Sens 83.5 H* (<3.5-17.0) ng/L B-Natriuretic Peptide (<100) pg/mL Urine Color STRAW Urine Appearance HAZY Urine pH 5.5 (5.0-8.0) Ur Specific [place] <= 1.005 (1.005-1.025) Urine Protein NEG (NEG-TRACE) MG/DL Urine Glucose (UA) NEG (NEG) MG/DL Urine Ketones NEG (NEG) MG/DL Urine Blood NEG (NEG) Urine Nitrite NEG (NEG) Ur Leukocyte Esterase NEG (NEG) Influenza Type A (PCR) (Negative) Influenza Type B (PCR) (Negative) RSV RNA Qual (PCR) (Negative) SARS-CoV-2 RNA (RT-PCR) (Negative) Imaging Data Chest x-ray: Attestation: I personally reviewed and interpreted this imaging study as follows: Radiologist's impression: EXAMINATION: PORTABLE CHEST 1 VIEW CLINICAL INFORMATION: dyspnea . COMPARISON: 12/13/2018. TECHNIQUE: Portable frontal view of the chest was obtained. FINDINGS: The lungs are well expanded. No focal infiltrate, effusion, edema, or pneumothorax. Cardiac and mediastinal silhouettes are within normal limits for size. TAVR stent is noted. No acute bony abnormality seen. XR/XR chest 1V IMPRESSION: TAVR stent. No focal airspace disease or overt edema. ? CT scan - chest: Attestation: I personally reviewed and interpreted this imaging study as follows: Radiologist's impression: FINDINGS: LUNGS: Some small lung nodules are again seen and unchanged. Bibasilar atelectasis is seen. No consolidations. No evidence of pulmonary edema. MEDIASTINUM: Prominent mediastinal nodes are stable reactive. A TAVR is seen. Extensive coronary calcification is present. PLEURA: There is no pleural effusion. No pleural mass or thickening.? AXILLA: No lymphadenopathy.? UPPER ABDOMEN: Unremarkable? OSSEOUS STRUCTURES: Degenerative changes are present throughout the spine. No acute finding or bony destructive lesions.? CT/CT chest w con IMPRESSION: No acute intrathoracic disease.? ? Fleischner guidelines were followed. CT head neck: Attestation: I personally reviewed and interpreted this imaging study as follows: Radiologist's impression: EXAMINATION: CT ANGIOGRAM HEAD CT ANGIOGRAM NECK CLINICAL INFORMATION: Numbness. Shortness of breath. Reason TAVR. COMPARISON: CT head from 11/09/2019. CTA head and neck from 12/13/2018. TECHNIQUE: Initial noncontrast oil scout imaging of the head and neck was performed. Noncontrast head CT was also performed. Test bolus sequences followed by intravenous administration 70 mL of Omnipaque 350. Helical imaging was performed in the axial plane from the aortic arch to the skull vertex. Delayed postcontrast imaging of the head was also performed. The data was processed at the cardiology technologist's workstation for generation of MIP sequences. Angled MIPs and volume rendered reformatted images were also generated at an offline 3D workstation. Stenoses are assessed in accordance with NASCET criteria unless otherwise indicated. This CT examination was performed using dose optimization techniques as appropriate, variously including the following: *Automated exposure control. *Adjustment of mA and/or kV according to patient size (this includes techniques or standardized protocols for targeted exams where dose is matched to indication/reason for exam; i.e. extremities or head). *Use of iterative reconstruction technique. DLP: 3180 mGy-cm FINDINGS: CT Head: There is no evidence of acute intracranial hemorrhage or edematous territorial infarction. Scattered hypoattenuation in the periventricular and deep white matter are consistent with moderate microangiopathy. Mir-white matter differentiation is preserved. Proportional prominence of the ventricles and sulcal spaces. No evidence for obstructive hydrocephalus. The sella turcica is partially expanded with flattening of the pituitary gland. Normal positioning of the cerebellar tonsils. No abnormal mass effect or midline shift. No extra-axial fluid collections. No pathologic intra-axial enhancement or regional oligemia. No acute soft tissue or osseous abnormalities. Mild mucosal thickening of the paranasal sinuses. The mastoid air cells and middle ear cavities are clear. The patient is edentulous. Bilateral lens extractions. CT Neck: The thyroid gland and remaining cervical soft tissues are within normal limits. Mild degenerative retrolisthesis of C4 and C5. Advanced degenerative disc disease from C4-C7 with disc/osteophyte complex formation. Facet and uncovertebral joint arthropathy leads to osseous encroachment on the neural foramina from C4-C7. CT Upper Chest: Nonspecific mildly prominent mediastinal lymph nodes, measuring up to 1.2 cm in the aortopulmonary window and 1.1 cm in the lower right paratracheal station. Otherwise, the Visualized lung apices and upper mediastinum are within normal limits. Neck CTA: Significantly motion degraded exam. Aortic Arch: Changes of recent TAVR. Normal contour and caliber with moderate calcific atherosclerotic disease. Two vessel branching pattern of the arch with left common carotid artery arising from the brachiocephalic trunk. Great Vessel Origins: Motion degradation partially limits evaluation. Atherosclerotic disease at the origins of the great vessels appears to cause less than 50% stenoses. Common Carotid Arteries: No focal stenosis or occlusion. Cervical Internal Carotid Arteries: There is heavy calcific atherosclerotic disease of the carotid bulbs bilaterally. Significant motion artifact limits quantification of stenoses; however, there appears to be moderate to high-grade stenosis of the proximal right ICA and likely moderate stenosis of the proximal left ICA. Retropharyngeal courses of the internal carotid arteries bilaterally. Cervical Right Vertebral Artery: Co-dominant. No focal stenosis or occlusion. Cervical Left Vertebral Artery: Co-dominant. No focal stenosis or occlusion. Brain CTA: Intracranial Internal Carotid Arteries: Calcific atherosclerotic disease of the intracranial internal carotid arteries without occlusion or flow-limiting stenosis. Right Anterior Cerebral Artery: The A1 segment is diminutive. Normal opacification of the distal JASWANT segments. Left Anterior Cerebral Artery: Normal A1 segment. Normal opacification of the distal JASWANT segments. Anterior Communicating Artery: Normal. Right Middle Cerebral Artery: Normal M1 segment of the MCA without focal stenosis or occlusion. Normal arborization of the distal segments. Left Middle Cerebral Artery: Normal M1 segment of the MCA without focal stenosis or occlusion. Normal arborization of the distal segments. Right Vertebral Artery: Normal V4 segment. Normal opacification of the proximal segments of the posterior inferior cerebellar artery. Left Vertebral Artery: Normal V4 segment. Normal opacification of the proximal segments of the posterior inferior cerebellar artery. Basilar Artery: Normal without focal stenosis or occlusion. Normal appearance of the proximal superior cerebellar arteries. Right Posterior Cerebral Artery: Normal P1 segment. Normal opacification of the distal EXPERIENCED TRUCK [employer]IVER segments. Left Posterior Cerebral Artery: Normal P1 segment. Normal opacification of the distal [employer]ED TRUCK [employer] segments. Normal opacification of the superior sagittal, straight, transverse, and sigmoid sinuses. CT/CT angio head neck IMPRESSION: 1. No evidence of acute intracranial hemorrhage or edematous territorial infarction. Moderate underlying microangiopathy and generalized cerebral volume loss. ? 2. Significant motion degradation on CTA of the head and neck. There is no demonstrated proximal occlusion. Heavy calcific atherosclerotic disease of the carotid bulbs and proximal internal carotid arteries appears to cause moderate to severe stenosis of the origin of the right ICA and moderate stenosis of the origin of the left ICA (further quantification would likely be inaccurate on this exam secondary to motion artifact). No demonstrated additional flow-limiting stenoses. ? 3. Moderate multilevel degenerative spondyloarthropathy of the cervical spine. ECG Data Attestation: I personally reviewed and interpreted this ECG as follows: ECG interpretation date: 10/20/21 ECG interpretation time: 16:33 Prior ECG tracings: available for review Interpretation: Vent. rate 92 BPM WA interval 152 ms QRS duration 90 ms QT/QTc 370/457 ms P-R-T axes 52 -1 87 Normal sinus rhythm Normal ECG When compared with ECG of 13-DEC-2018 00:42, No significant change was found EKG 2. Vent. rate 94 BPM WA interval 180 ms QRS duration 74 ms QT/QTc 354/442 ms P-R-T axes 46 -5 69 Normal sinus rhythm Septal infarct , age undetermined Abnormal ECG When compared with ECG of 21-OCT-2021 16:33, Septal infarct is now Present ST now depressed in Anterior leads 21-OCT-2021 19:22:16 Critical Care Time Critical Care Time Critical Care Time: Yes Total Critical Care Time: 60 Attestation: I have personally provided critical care time exclusive of time spent on separ ately billable procedures. Time includes review of laboratory data, radiology results, discussion with consultants, and monitoring for potential decompensation. Interventions were performed as documented. Discharge Plan Discharge Clinical Impression: COPD (chronic obstructive pulmonary disease), SOB (shortness of breath) on exertion, Weakness Patient Disposition: Home, Self-Care Instructions: Shortness of Breath (ED), Weakness (ED), COPD (Chronic Obstructive Pulmonary Disease) (ED) Additional Instructions: You were evaluated for shortness of breath, weakness and numbness. CT angiogram of head and neck is negative for acute findings requiring emergent intervention. Study did not find stroke or ischemia. It did show arthrosclerotic disease of the carotid bulbs and internal carotid arteries. You must follow-up with primary care physician for this finding. Chest CT was negative for acute findings. Your cardiac enzymes are elevated. This could possibly be due to your recent TAVR. You must follow up with your audio production instructor for further workup. Your EKGs did not show any ST elevations consistent with heart attack. Your other lab values were within normal limits. COVID influenza are negative. Thank you for choosing this emergency department for evaluation. Please fol low-up with primary care physician as needed. Return to the emergency department for any new, concerning, or worsening symptoms. Prescriptions: No Action fluticasone propion-salmeterol [Advair HFA] 230-21 mcg/actuation HFA aerosol inhaler 2 puff inhalation BID Qty: 36 3RF clopidogrel 75 mg tablet 75 mg PO DAILY 0RF ibuprofen 800 mg tablet 800 mg PO TID 0RF (DME) insulin syringe-needle U-100 0.5 mL 31 gauge x 5/16 syringe See Rx Instructions syringe .ROUTE .MEDSUPPLY Qty: 10 0RF Rx Instructions: As directed glipizide 10 mg tablet 10 mg PO BID 0RF atorvastatin 40 mg tablet 40 mg PO DAILY 0RF albuterol sulfate 90 mcg/actuation HFA aerosol inhaler inhalation 0RF losartan-hydrochlorothiazide 100-25 mg tablet 1 tab PO DAILY 0RF amitriptyline 100 mg tablet 100 mg PO BEDTIME 0RF exenatide microspheres 2 mg/0.65 mL pen injector subcut QWEEK 0RF insulin glargine 100 unit/mL solution 104 unit subcut QPM 0RF furosemide 40 mg tablet 40 mg PO DAILY PRN0RF
--- NOTE | 2021-10-21 19:07 | ECG_ITS ---
Test Reason : repeat, elevated troponin Blood Pressure : / mmHG Vent. Rate : 094 BPM Atrial Rate : 094 BPM P-R Int : 180 ms QRS Dur : 074 ms QT Int : 354 ms P-R-T Axes : 046 -05 069 degrees QTc Int : 442 ms Poor data quality Normal sinus rhythm Normal ECG When compared with ECG of 21-OCT-2021 16:33, No significant changes seen Referred By: Paulina Knapp Electronically Signed By:Yung Mendenhall
[2021-10-21 19:16] VITALS: BP 157/56; PULSE 97; RESP 16; TEMP 37.3; O2SAT 100
[2021-10-21] MEDS: Aspirin 81 MG TAB.CHEW 324 MG PO (20:45)
[2021-10-21] MEDS: LORazepam 2 MG/ML VIAL 1 MG IVPUSH (20:46)
[2021-10-21 20:50] LABS: Troponin-I High Sensitivity 91.3 ng/L (<3.5-17.0)
[2021-10-21 21:13] LABS: Appearance Urine HAZY; Color Urine STRAW; Glucose Urine UA NEG (NEG); Leukocyte Esterase Urine NEG (NEG); Nitrite Urine NEG (NEG); PH 5.5 (5.0-8.0); Specific Gravity - Urine <= 1.005 (1.005-1.025); Urine Blood NEG (NEG); Urine Ketones NEG (NEG); Urine Protein NEG (NEG-TRACE)
[2021-10-21 21:32] LABS: Influenza A PCR NEGATIVE (Negative); Influenza B PCR NEGATIVE (Negative); Resp Syncy Virus RNA Qual PCR NEGATIVE (Negative); SARS COV2 PCR INHOUSE NEGATIVE (Negative)
[2021-10-21] MEDS: iohexoL 350 MG/ML 100 ML INFUS..BTL IV (22:07)
[2021-10-21 22:25] VITALS: BP 113/93; PULSE 93; RESP 12; TEMP 37.1; O2SAT 99
[2021-10-22] VITALS: BP 123/85; PULSE 87; RESP 25; TEMP 36.7; O2SAT 99
[2021-10-22 01:18] LABS: D Dimer High Sensitivity 404 NG/ML
[2021-10-22 01:46] LABS: Troponin-I High Sensitivity 83.5 ng/L (<3.5-17.0)
[2021-10-22 02:00] VITALS: BP 112/44; PULSE 92; RESP 16; TEMP 36.7; O2SAT 94
== END 2021-10-22 03:52 | disposition home or self-care (01) ==
PROVIDERS: Nurse Practitioner Family; Emergency Provider Emergency Medicine; PCP Internal Medicine
DX: J44.9 Chronic obstructive pulmonary disease, unspecified (principal); R06.02 Shortness of breath; M79.10 Myalgia, unspecified site; I50.9 Heart failure, unspecified; E11.9 Type 2 diabetes mellitus without complications; R29.700 NIHSS score 0; R20.0 Anesthesia of skin; Z20.822 Contact with and (suspected) exposure to COVID-19; Z79.4 Long term (current) use of insulin; Z79.899 Other long term (current) drug therapy; F17.210 Nicotine dependence, cigarettes, uncomplicated; Z71.6 Tobacco abuse counseling
CPT/HCPCS: 0241U; 36415; 70496; 70498; 71045; 71260; 80048; 81003; 82550; 83880; 84484; 85025; 85379; 93005; 96374; 99284; 99291; J2060; Q9967

== ENCOUNTER → 2021-11-10 12:50 | Outpatient (REF) | payer MEDICARE, OTHER, SELFPAY ==
--- NOTE | 2021-11-10 12:58 | CA_ITS ---
Transthoracic Echocardiogram Patient (Last, First, Middle): Silvia Watson, Gender: Female Date of : 1945 Age: 76 Procedure Date: 11/10/2021 Procedure Type: Transthoracic Echocardiogram Location: OP Height: 162.56 cm Weight: 118.39 kg BSA: 2.19 m2 Heart Rate: bpm BP: 134 / 80 mmHg Clinical Courier: Referring MD: Alberto Caceres MD Symptoms: I35.0 - Nonrheumatic aortic (valve) stenosis S/P TAVR Study Quality: Fair ECG Rhythm: Sinus Conclusions: - The left ventricular systolic function is normal. The visually estimated ejection fraction is between 65-70%. - Evidence suggests grade II (moderate) diastolic dysfunction. - A bioprosthetic aortic valve is present. The prosthetic aortic valve appears to be functioning normally. - There is moderate mitral annular calcification. There is no mitral valve regurgitation. Mean gradient across the mitral valve is 7 mm Hg at 87/Min. Cannot exclude mild to moderate mitral stenosis. Findings Left Ventricle Normal left ventricular cavity size. There is moderately increased left ventricular wall thickness. The left ventricular systolic function is normal. The visually estimated ejection fraction is between 65-70%. There is no evidence of regional wall motion abnormalities. E/E prime ratio is >15, consistent with elevated filling pressures. Evidence suggests grade II (moderate) diastolic dysfunction. Right Ventricle Normal right ventricular cavity size and systolic function. Atria Both atria are normal in size. Aortic Valve A bioprosthetic aortic valve is present. The prosthetic aortic valve appears to be functioning normally. There is no aortic valve stenosis. The mean gradient is 8 mmHg. There is no aortic valve regurgitation. Mitral Valve There is moderate mitral annular calcification. There is no mitral valve regurgitation. Mean gradient across the mitral valve is 7 mm Hg at 87/Min. Cannot exclude mild to moderate mitral stenosis. Pulmonic Valve The pulmonic valve is likely normal. Tricuspid Valve Normal tricuspid valve structure. There is trace tricuspid valve regurgitation. The pulmonary artery systolic pressure is normal. Great Vessels The aorta was not well visualized. Venous The inferior vena cava was not well visualized. Pericardium/Pleural There is no evidence of pericardial effusion. Prior Study Comparison Changes noted compared to prior study dated: 05/14/2021. s/p AVR. Measurements 2D Linear Measurements IVSd: 1.35 0.6-0.9/0.6-1.0 cm LVIDd: 5.18 3.9-5.3/4.2-5.9 cm LVIDd Index: 2.37 2.4-3.2/2.2-3.1 cm/m2 LVIDs: 3.17 2.0-3.6 cm LVPWd: 1.34 0.7-1.1 cm Ao Root: 3.00 2.1-3.5 cm LA Diam: 4.60 2.7-3.8/3.0-4.0 cm LAIDs Index: 2.10 1.5-2.3 cm/m2 LV Mass: 362.39 67-162/88-224 g LV Mass Index: 165.47 43-95/49-115 g/m2 LVOT Diam: 2.00 3.0+(-)1.3 cm Mitral Valve MV VTI: 0.55 MV Pk Luis: 2.02 MV Mn Luis: 1.25 MV Pk Grad: 16.00 MV Mn Grad: 7.00 MV Pk E: 1.33 MV PK A: 1.55 MV Decel Time: 200.00 E/A: 0.90 E'Lateral: 3.37 E'Medial: 5.22 E/E' Med: 25.50 E/E' Lat: 39.50 PHT: 59.00 MVA PHT: 3.73 MVA Continuity: 1.45 Decel [place]: 6.64 Aortic Valve AoV Pk Luis: 2.13 AoV Mn Luis: 1.27 AoV VTI: 0.40 AoV Pk Grad: 18.00 Aov Mn Grad: 8.00 MODE Cont.VTI: 1.98 LVOT LVOT Pk Luis: 1.06 LVOT Mn Luis: 0.77 LVOT VTI: 0.25 LVOT Pk Grad: 4.00 LVOT Mn Grad: 3.00 LVOT Diam: 2.00 LVOT Area: 3.14 Diastolic Function MV Pk E: 1.33 MV Pk A: 1.55 E/A: 0.90 E'Medial: 5.22 E/E' Med: 25.50 E' Laterial: 3.37 E/E' Lat: 39.50 Right Ventricle TAPSE (mm): 35.00 TVS' Luis: 17.00 Tricuspid Valve TR Pk Luis: 1.76 TR Pk Grad: 12.00 RA Press: 3.00 RVSP: 15.00 Great Vessels Aorta Ao Root-2D: 3.00 2.0-3.7 cm Pulmonary Valve PV Pk Luis: 1.25 Peak PV Grad: 6.00 Updated in Other Vendor System with Status of Final Joe García MD electronically signed on 11/11/2021 2:55:28 PM with status of Final
== END ==
LOC: HO.CARD 12:50
PROVIDERS: PCP Internal Medicine; Visit Provider Internal Medicine Cardiovascular Disease
DX: I35.0 Nonrheumatic aortic (valve) stenosis (principal); Z95.3 Presence of xenogenic heart valve
CPT/HCPCS: 93306

== ENCOUNTER → 2021-11-16 12:49 | Outpatient (BNVA) | payer MEDICARE, OTHER, SELFPAY | PROVIDERS: PCP Internal Medicine; Visit Provider Internal Medicine Cardiovascular Disease | DX: I10 Essential (primary) hypertension (principal); Z95.2 Presence of prosthetic heart valve | CPT/HCPCS: 99212 ==

== ENCOUNTER 2022-03-23 06:51 | Emergency (ER) | payer MEDICARE, OTHER, SELFPAY ==
[2022-03-23] VITALS (7 sets, daily range): BP systolic 96–161; BP diastolic 41–75; PULSE 88–98; RESP 16–21; TEMP 36.4–36.5; O2SAT 90–97; BMI 44.8
--- NOTE | ~2022-03-23 | XR_ITS ---
EXAMINATION: XR CHEST CLINICAL INFORMATION: Weakness COMPARISON: 10/21/2021 TECHNIQUE: Frontal view of the chest was obtained. FINDINGS: Normal symmetric lung volumes. No parenchymal consolidation. Diffuse bronchial wall thickening. No pleural effusion. No pneumothorax. Cardiomediastinal silhouette and pulmonary vascularity are within normal limits. TAVR. No acute osseous abnormalities. XR/XR chest 1V IMPRESSION: Diffuse bronchial thickening as can be seen with bronchitis. No focal consolidation.
--- NOTE | ~2022-03-23 | CT_ITS ---
EXAMINATION: CT ABDOMEN AND PELVIS WITHOUT CONTRAST CLINICAL INFORMATION: Diarrhea. COMPARISON: CT scan of the abdomen and pelvis dated 10/11/2017. TECHNIQUE: Multidetector volumetric imaging was performed from the superior aspect of the liver through the pubic symphysis. Sagittal and coronal reformatted images were obtained on the technologist's workstation. Plaque of intravenous and oral contrast limits visceral evaluation. There is some limitation secondary to respiratory motion artifact. This CT examination was performed using dose optimization techniques as appropriate, variously including the following: *Automated exposure control *Adjustment of mA and/or kV according to patient size (this includes techniques or standardized protocols for targeted exams where dose is matched to indication/reason for exam; i.e. extremities or head) *Use of iterative reconstruction technique DLP: 920 mGy-cm FINDINGS: LUNG BASES: Partial visualization of mitral and aortic valve prostheses. No pericardial effusions. LIVER, GALLBLADDER, AND BILIARY TREE: No hepatic abnormality. Gallbladder small calcifications near the neck without surrounding abnormality. No biliary ductal dilatation. PANCREAS: Unremarkable. SPLEEN: Unremarkable. ADRENAL GLANDS: Unremarkable. KIDNEYS AND URETERS: Right kidney nonobstructing right upper pole punctate calculus. No left intrarenal calculi. No hydronephrosis bilaterally. BLADDER: Unremarkable. GASTROINTESTINAL TRACT: The stomach is unremarkable. The proximal small bowel is unremarkable. A mid to distal ileum is decompressed with transition point in the right lower quadrant. The appendix without focal abnormality. The appendix is unremarkable. The colon from the splenic flexure to the proximal sigmoid colon is decompressed without focal or surrounding abnormality. The distal sigmoid colon and rectum are unremarkable. ABDOMINAL WALL: Small to moderate fat-containing umbilical hernia and postsurgical changes without significant change. LYMPH NODES: No lymphadenopathy. VASCULAR: Moderate to severe atherosclerosis in the abdominal aorta, most pronounced in the infrarenal segment. PELVIC VISCERA: Anteverted/retroflexed uterus. No adnexal abnormality. OSSEOUS STRUCTURES: Mild to moderate multilevel degenerative changes in the thoracolumbar spine most pronounced from L2-3 to L5-S1. CT/CT abdomen pelvis wo IV con IMPRESSION: 1. No acute intra-abdominal/pelvic abnormality to explain the patient's symptoms. 2. Cholelithiasis without evidence for acute cholecystitis. 3. Decompressed distal small bowel without focal abnormality at the transition point in the right lower quadrant. The overall appearance is similar to the 2018 study suggesting this is baseline for the patient/chronic. 4. Nonobstructing right upper pole adrenal calculus.
--- NOTE | 2022-03-23 07:02 | ECG_ITS ---
Test Reason : weakness Blood Pressure : / mmHG Vent. Rate : 090 BPM Atrial Rate : 090 BPM P-R Int : 190 ms QRS Dur : 098 ms QT Int : 394 ms P-R-T Axes : 052 004 075 degrees QTc Int : 481 ms Normal sinus rhythm Low voltage QRS Cannot rule out Anterior infarct (cited on or before 23-MAR-2022) Abnormal ECG When compared with ECG of 21-OCT-2021 19:22, Questionable change in initial forces of Anteroseptal leads Referred By: Minoo Beckham Electronically Signed By:[email or web address] SERRANO
--- NOTE | 2022-03-23 07:09 | ED.NAVMDI ---
HPI - Nausea/Vomiting/Diarrhea General Chief complaint: General Medical Stated complaint: n/v/d/weakness Time Seen by Provider: 03/23/22 06:55 Source: patient Mode of arrival: EMS Limitations: no limitations History of Present Illness HPI Narrative: 76 yo female with hx of HTN, s/p TAVR on aspirin only, HTN, DM, COPD, here with c/o 2 hours of feeling nausea/vomiting/diarrhea and weakness. Reports she ate old micheline crackers last night but cannot think of anything else odd. She has no abdominal pain. She has not had sick contacts. MD elicited complaint: nausea, vomiting and diarrhea Onset (ago): hour(s) (2) Description of vomiting: watery Description of diarrhea: watery Associated nausea: Yes Associated abdominal pain: No Severity: moderate Exacerbating factors: eating Relieving factors: none Associated symptoms: loss of appetite, malaise and nausea/vomiting Related Data Home Medications Medication Instructions Recorded Confirmed albuterol sulfate 90 mcg/actuation inhalation 05/29/20 11/16/21 aerosol inhaler atorvastatin 40 mg tablet 40 mg PO DAILY 05/29/20 11/16/21 glipizide 10 mg tablet 10 mg PO BID 05/29/20 11/16/21 ibuprofen 800 mg tablet 800 mg PO TID 05/29/20 06/18/21 insulin syringe-needle U-100 0.5 #10 ea 05/29/20 06/18/21 mL 31 gauge x 5/16 losartan 100 1 tab PO DAILY 05/29/20 11/16/21 mg-hydrochlorothiazide 25 mg tablet amitriptyline 100 mg tablet 100 mg PO BEDTIME 09/30/20 11/16/21 exenatide microspheres 2 mg/0.65 mg subcut QWEEK 09/30/20 11/16/21 mL subcutaneous pen injector insulin glargine 100 unit/mL 104 unit subcut QPM 09/30/20 11/16/21 subcutaneous solution aspirin 81 mg tablet,delayed 81 mg PO DAILY 11/16/21 11/16/21 release (Adult Low Dose Aspirin) furosemide 40 mg tablet 40 mg PO Q OTHER DAY PRN 11/16/21 11/16/21 Previous Rx's Medication Instructions Recorded fluticasone propionate 230 2 puff inhalation BID #36 grams 12/08/21 mcg-salmeterol 21 mcg/actuation HFA inhaler (Advair HFA) cefuroxime axetil 250 mg tablet 250 mg PO BID 7 days #14 tabs 03/23/22 ondansetron 4 mg disintegrating 4 mg PO Q8H PRN nausea and 03/23/22 tablet vomiting #20 tabs Allergies Allergy/AdvReac Type Severity Reaction Status Date / Time bee pollen [BEE STINGS] Allergy Intermediate SWELLING Verified 10/21/21 16:36 cyclobenzaprine Allergy Mild UNKNOWN Verified 10/21/21 16:36 [From Flexeril] Penicillins Allergy Mild UNKNOWN Verified 10/21/21 16:36 metformin [From GLUCOPHAGE] Allergy Unknown SEVER Verified 10/21/21 16:36 DIARRHEA Review of Systems Review of Systems: Constitutional : No Weight loss, No Fever, pos Chills ENT/Mouth : No sore throat, No Rhinorrhea Eyes: No Swelling, No Redness Cardiovascular : No Chest Pain, No SOB, NoEdema Respiratory : No Cough, No Sputum, No Wheezing Gastrointestinal : Positive Nausea, Positive Vomiting, positive Diarrhea, no abdominal Pain, No Hematochezia, No Melena Genitourinary : No Dysuria, No Urinary Frequency, No Hematuria, No Urgency Musculoskeletal : No joint pain, No Myalgias, No Joint Swelling Skin : No Skin Lesions, No rash Neuro : pos Weakness, No Numbness, No Dizziness, No Headache Psych : No Anxiety/Panic, No Depression Heme/Lymph: No Bruising, No Lymphadenopathy Endocrine : No Polyuria, No Polydipsia All other systems reviewed and are negative. Gastrointestinal: Gastrointestinal: Reports nausea PMFSH Past Medical History Attestation statement: The following information was validated with the patient. Medical History Aortic stenosis COPD (chronic obstructive pulmonary disease) Diabetes HTN (hypertension) Nocturnal hypoxemia SHANNON (obstructive sleep apnea) Seizure Smoker Stroke Vertigo Surgical History Retained myringotomy tube in left ear S/P TAVR (transcatheter aortic valve replacement) Family History Family History Father No problems noted. Mother No problems noted. Social History Social History Cigarette Packs Per Day: 2 Cigarettes Per Day: 40 Years Smoked: started at 27 years old Advance Directives: Yes Advance Directives Information Provided: Yes Advance Directives on File: No Physical Exam Vital Signs: Vital Signs: Last Vital Signs Temp 97.7 F 03/23/22 11:46 Pulse 98 03/23/22 11:46 Resp 19 03/23/22 11:46 BP 119/50 L 03/23/22 11:51 Pulse Ox 94 03/23/22 11:46 O2 Del Method 03/23/22 11:46 O2 Flow Rate 1.5 03/23/22 11:46 BMI result Body Mass Index 44.8 Appearance: Alert. Oriented X3. No acute distress. Eyes: Pupils equal, round and reactive to light. ENT: Pharynx normal. Neck: Normal inspection. Neck supple. CVS: Normal heart rate and rhythm. Pulses normal. Respiratory: No respiratory distress. Breath sounds normal. Abdomen: Soft and non-tender. Skin: Skin warm and dry. pale skin color. Normal skin turgor. Extremities: 1-2+ pitting lower extremity edema. No calf ttp Neuro: Oriented X 3. No motor deficit. No sensory deficit. Course Course Course Narrative: wears PRN O2 at home CT scan negative, trop at baseline, labs stable, tolerating ice chips - pending UA sample + UA - no tachycardia, no leukocytosis no signs of sepsis will dose with rocephin patient feels much better anticipate she will be able to go home on ceftin 250mg BID patient wants to go home, cultures and lactic acid never done before ceftriaxone she states she wants to go home. given precautions to return MDM - Nausea/Vomiting/Diarrhea MDM Narrative Medical decision making narrative: 76 yo female with hx of HTN, s/p TAVR on aspirin only, HTN, DM, COPD here with c/o 2 hours of chills, nausea, vomiting and diarrhea at this time will need labs, EKG, UA and CXR for infection. CT scan for obstruction/ileus. IV zofran ordered. Dispo per results and findings. Differential Diagnosis Differential diagnosis: Likely gastroenteritis and dehydration Lab Data Result diagrams: 03/23/22 08:56 03/23/22 08:56 Labs: Lab Results 03/23/22 03/23/22 03/23/22 Range/Units 08:56 08:56 08:56 WBC 10.3 (4.8-10.8) X10*3/uL RBC 4.41 (4.20-5.50) X10*6/uL Hgb 12.1 (12.0-16.0) g/dl Hct 38.0 (37.0-47.0) % MCV 86.2 (80.0-98.0) fL MCH 27.4 (27.0-33.0) pg MCHC 31.8 (31.0-35.0) g/dl RDW 13.8 (11.0-16.0) % Plt Count 252 (160-400) X10*3/uL MPV 8.7 L (9.4-12.3) fL Immature Gran % (Auto) 0.5 H (0.0-0.4) % Neut % (Auto) 87.7 H (45-73) % Lymph % (Auto) 8.6 L (20-40) % [place] % (Auto) 2.5 (2-11) % Eos % (Auto) 0.2 (0-4) % Baso % (Auto) 0.5 (0-2) % Lymph # (Auto) 0.9 L (1.2-4.9) X10*3/uL [place] # (Auto) 0.3 (0.1-1.2) X10*3/uL Eos # (Auto) 0.0 (0.0-0.4) X10*3/uL Baso # (Auto) 0.1 (0.0-0.2) X10*3/uL Abs Immat Gran (auto) 0.05 H (0.00-0.03) X10*3/uL Absolute Neuts (auto) 9.0 H (2.0-8.3) x10*3/uL Absolute Nucleated RBC 0.000 (0.0-0.012) X10*3/uL Nucleated RBC % (auto) 0.0 (0.0-0.2) /100WBC Sodium 141 (135-145) mmol/L Potassium 4.2 (3.3-5.1) mmol/L Chloride 103 (96-108) mmol/L Carbon Dioxide 25 (22-29) mmol/L Anion Gap 17 (12-20) BUN 16 (9-16) mg/dL Creatinine 0.89 (0.5-1.4) mg/dL Estim Creat Clear Calc 68.0 Estimated GFR > 60 Random Glucose 286 H (60-115) mg/dL Calcium 9.1 (8.4-10.2) mg/dL Magnesium 1.8 (1.6-2.6) mg/dL Total Bilirubin 0.3 (0.0-1.0) mg/dL Direct Bilirubin < 0.2 (0.0-0.5) mg/dL AST 13 (5-31) U/L ALT 13 (0-31) U/L Alkaline Phosphatase 110 (39-117) U/L Troponin I High Sens (<3.5-17.0) ng/L B-Natriuretic Peptide 38 (<100) pg/mL Total Protein 6.9 (6.5-8.0) g/dL Albumin 4.2 (3.5-5.0) g/dL Lipase 28 (8-78) U/L Urine Color Urine Appearance Urine pH (5.0-9.0) Ur Specific [place] (1.005-1.025) Urine Protein (Neg-Trace) mg/dL Urine Glucose (UA) (Negative) mg/dL Urine Ketones (Negative) mg/dL Urine Blood (Negative) Urine Nitrite (Negative) Ur Leukocyte Esterase (Negative) Urine RBC (0-2) /HPF Urine WBC (0-5) /HPF Ur Squamous Epith Cells (0-2) /HPF Calcium Oxalate Crystal Urine Bacteria (None Seen) Hyaline Casts (0-2) /LPF COVID-19 (JANIE) (Negative) COVID-19 Clin Com 03/23/22 03/23/22 03/23/22 Range/Units 08:56 08:56 11:00 WBC (4.8-10.8) X10*3/uL RBC (4.20-5.50) X10*6/uL Hgb (12.0-16.0) g/dl Hct (37.0-47.0) % MCV (80.0-98.0) fL MCH (27.0-33.0) pg MCHC (31.0-35.0) g/dl RDW (11.0-16.0) % Plt Count (160-400) X10*3/uL MPV (9.4-12.3) fL Immature Gran % (Auto) (0.0-0.4) % Neut % (Auto) (45-73) % Lymph % (Auto) (20-40) % [place] % (Auto) (2-11) % Eos % (Auto) (0-4) % Baso % (Auto) (0-2) % Lymph # (Auto) (1.2-4.9) X10*3/uL [place] # (Auto) (0.1-1.2) X10*3/uL Eos # (Auto) (0.0-0.4) X10*3/uL Baso # (Auto) (0.0-0.2) X10*3/uL Abs Immat Gran (auto) (0.00-0.03) X10*3/uL Absolute Neuts (auto) (2.0-8.3) x10*3/uL Absolute Nucleated RBC (0.0-0.012) X10*3/uL Nucleated RBC % (auto) (0.0-0.2) /100WBC Sodium (135-145) mmol/L Potassium (3.3-5.1) mmol/L Chloride (96-108) mmol/L Carbon Dioxide (22-29) mmol/L Anion Gap (12-20) BUN (9-16) mg/dL Creatinine (0.5-1.4) mg/dL Estim Creat Clear Calc Estimated GFR Random Glucose (60-115) mg/dL Calcium (8.4-10.2) mg/dL Magnesium (1.6-2.6) mg/dL Total Bilirubin (0.0-1.0) mg/dL Direct Bilirubin (0.0-0.5) mg/dL AST (5-31) U/L ALT (0-31) U/L Alkaline Phosphatase (39-117) U/L Troponin I High Sens 24.2 H D 24.7 H (<3.5-17.0) ng/L B-Natriuretic Peptide (<100) pg/mL Total Protein (6.5-8.0) g/dL Albumin (3.5-5.0) g/dL Lipase (8-78) U/L Urine Color Urine Appearance Urine pH (5.0-9.0) Ur Specific [place] (1.005-1.025) Urine Protein (Neg-Trace) mg/dL Urine Glucose (UA) (Negative) mg/dL Urine Ketones (Negative) mg/dL Urine Blood (Negative) Urine Nitrite (Negative) Ur Leukocyte Esterase (Negative) Urine RBC (0-2) /HPF Urine WBC (0-5) /HPF Ur Squamous Epith Cells (0-2) /HPF Calcium Oxalate Crystal Urine Bacteria (None Seen) Hyaline Casts (0-2) /LPF COVID-19 (JANIE) Negative (Negative) COVID-19 Clin Com See Note 03/23/22 Range/Units 12:41 WBC (4.8-10.8) X10*3/uL RBC (4.20-5.50) X10*6/uL Hgb (12.0-16.0) g/dl Hct (37.0-47.0) % MCV (80.0-98.0) fL MCH (27.0-33.0) pg MCHC (31.0-35.0) g/dl RDW (11.0-16.0) % Plt Count (160-400) X10*3/uL MPV (9.4-12.3) fL Immature Gran % (Auto) (0.0-0.4) % Neut % (Auto) (45-73) % Lymph % (Auto) (20-40) % [place] % (Auto) (2-11) % Eos % (Auto) (0-4) % Baso % (Auto) (0-2) % Lymph # (Auto) (1.2-4.9) X10*3/uL [place] # (Auto) (0.1-1.2) X10*3/uL Eos # (Auto) (0.0-0.4) X10*3/uL Baso # (Auto) (0.0-0.2) X10*3/uL Abs Immat Gran (auto) (0.00-0.03) X10*3/uL Absolute Neuts (auto) (2.0-8.3) x10*3/uL Absolute Nucleated RBC (0.0-0.012) X10*3/uL Nucleated RBC % (auto) (0.0-0.2) /100WBC Sodium (135-145) mmol/L Potassium (3.3-5.1) mmol/L Chloride (96-108) mmol/L Carbon Dioxide (22-29) mmol/L Anion Gap (12-20) BUN (9-16) mg/dL Creatinine (0.5-1.4) mg/dL Estim Creat Clear Calc Estimated GFR Random Glucose (60-115) mg/dL Calcium (8.4-10.2) mg/dL Magnesium (1.6-2.6) mg/dL Total Bilirubin (0.0-1.0) mg/dL Direct Bilirubin (0.0-0.5) mg/dL AST (5-31) U/L ALT (0-31) U/L Alkaline Phosphatase (39-117) U/L Troponin I High Sens (<3.5-17.0) ng/L B-Natriuretic Peptide (<100) pg/mL Total Protein (6.5-8.0) g/dL Albumin (3.5-5.0) g/dL Lipase (8-78) U/L Urine Color Yellow Urine Appearance Hazy Urine pH 5.5 (5.0-9.0) Ur Specific [place] >= 1.030 H (1.005-1.025) Urine Protein Trace (Neg-Trace) mg/dL Urine Glucose (UA) 250 H (Negative) mg/dL Urine Ketones Negative (Negative) mg/dL Urine Blood Negative (Negative) Urine Nitrite Positive H (Negative) Ur Leukocyte Esterase Negative (Negative) Urine RBC 0-2 (0-2) /HPF Urine WBC 0-5 (0-5) /HPF Ur Squamous Epith Cells 3-5 (0-2) /HPF Calcium Oxalate Crystal Present Urine Bacteria 4+ (None Seen) Hyaline Casts 0-2 (0-2) /LPF COVID-19 (JANIE) (Negative) COVID-19 Clin Com ECG Data Attestation: I personally reviewed and interpreted this ECG as follows: ECG interpretation date: 03/23/22 ECG interpretation time: 08:18 Interpretation: Rate: 90 Rhythm: NSR [place]: left Normal P waves. Normal ESTHER. Normal QRS complex. ST T wave : no FIDE, nonspecific qTC: normal prior studies: no acute ischemia The study has been interpreted contemporaneously by me. . Discharge Plan Discharge Clinical Impression: Acute UTI Vomiting Qualifiers: Vomiting type: unspecified Nausea presence: with nausea Qualified Code(s): R11.2 - Nausea with vomiting, unspecified Diarrhea Qualifiers: Diarrhea type: unspecified type Qualified Code(s): R19.7 - Diarrhea, unspecified Patient Disposition: Home, Self-Care Instructions: Urinary Tract Infection in Women (ED), Acute Nausea and Vomiting (ED), Acute Diarrhea (ED) Additional Instructions: return to ED for any worsening symptoms or concerns start antibiotics tomorrow 03/24 Prescriptions: New cefuroxime axetil 250 mg tablet 250 mg PO BID 7 Days Qty: 14 0RF ondansetron 4 mg tablet,disintegrating 4 mg PO Q8H PRN (Reason: nausea and vomiting) Qty: 20 0RF No Action Advair HFA 230-21 mcg/actuation HFA aerosol inhaler 2 puff inhalation BID Qty: 36 3RF ibuprofen 800 mg tablet 800 mg PO TID (DME) insulin syringe-needle U-100 0.5 mL 31 gauge x 5/16 syringe See Rx Instructions .ROUTE .MEDSUPPLY Qty: 10 Rx Instructions: As directed glipizide 10 mg tablet 10 mg PO BID atorvastatin 40 mg tablet 40 mg PO DAILY albuterol sulfate 90 mcg/actuation HFA aerosol inhaler inhalation losartan-hydrochlorothiazide 100-25 mg tablet 1 tab PO DAILY amitriptyline 100 mg tablet 100 mg PO BEDTIME exenatide microspheres 2 mg/0.65 mL pen injector subcut QWEEK insulin glargine 100 unit/mL solution 104 unit subcut QPM furosemide 40 mg tablet 40 mg PO Q OTHER DAY PRN aspirin [Adult Low Dose Aspirin] 81 mg tablet,delayed release (DR/EC) 81 mg PO DAILY Referrals: Lon Bishop MD [Primary Care Provider] - 2 days (if not better )
[2022-03-23] MEDS: ondansetron HCL 4 MG/2 ML VIAL IVPUSH ×2 (07:33→09:32)
--- NOTE | 2022-03-23 07:40 | PC.NURSE ---
patient a/ox4. pearrla . heart rate regular at 87 . lungs diminished throughout . patient has history of COPD . skin warm and dry , bilateral non pitting edema noted in lower extremities . patient is obese with large abdomen , soft non tender postive bowel sounds throughout . presents with c/o n/v . IV placed in left forearm medicated with zofran as ordered . patient aware of plan of care .
[2022-03-23 09:15] LABS: MANUAL DIFF FLAG NO
[2022-03-23 09:24] LABS: Basophils Absolute Auto 0.1 X10*3/uL (0.0-0.2); Basophils Percent Auto 0.5 % (0-2); Eosinophils Percent Auto 0.2 % (0-4); Hemoglobin 12.1 g/dl (12.0-16.0); Imm Gran Abs Auto 0.05 X10*3/uL (0.00-0.03); Imm Gran Pct Auto 0.5 % (0.0-0.4); Lymphocytes Absolute Auto 0.9 X10*3/uL (1.2-4.9); Lymphocytes Percent Auto 8.6 % (20-40); Mean Corpuscular HGB Conc 31.8 g/dl (31.0-35.0); Mean Corpuscular Hemoglobin 27.4 pg (27.0-33.0); Mean Corpuscular Volume 86.2 fL (80.0-98.0); Mean Platelet Volume 8.7 fL (9.4-12.3); Monocytes Absolute Auto 0.3 X10*3/uL (0.1-1.2); Monocytes Percent Auto 2.5 % (2-11); Neutrophils Percent Auto 87.7 % (45-73); Platelet Count 252 X10*3/uL (160-400); Red Blood Count 4.41 X10*6/uL (4.20-5.50); Red Cell Distribution Width 13.8 % (11.0-16.0); White Blood Count 10.3 X10*3/uL (4.8-10.8)
[2022-03-23 09:32] LABS: Alanine Aminotransferase 13 U/L (0-31); Albumin Level 4.2 g/dL (3.5-5.0); Alkaline Phosphatase 110 U/L (39-117); Anion Gap 17 (12-20); Aspartate Amino Transferase 13 U/L (5-31); Bilirubin Direct < 0.2 mg/dL (0.0-0.5); Bilirubin Total 0.3 mg/dL (0.0-1.0); Blood Urea Nitrogen 16 mg/dL (9-16); Calcium 9.1 mg/dL (8.4-10.2); Carbon Dioxide 25 mmol/L (22-29); Chloride 103 mmol/L (96-108); Estimated Glomerular Filt Rate > 60; Glucose Random 286 mg/dL (60-115); Lipase 28 U/L (8-78); Magnesium 1.8 mg/dL (1.6-2.6); Potassium 4.2 mmol/L (3.3-5.1); Sodium 141 mmol/L (135-145); Total Protein 6.9 g/dL (6.5-8.0)
[2022-03-23 09:34] LABS: Troponin-I High Sensitivity 24.2 ng/L (<3.5-17.0)
[2022-03-23 09:35] LABS: B Type Natriuretic Peptide 38 pg/mL (<100)
--- NOTE | 2022-03-23 09:39 | PC.NURSE ---
patient medicated with zofran for n/v as ordered . will reassess . patient aware of plan of care .
[2022-03-23 09:41] LABS: COVID-19 Test Negative (Negative); IDNOW Serial# 9DD0AD1C
[2022-03-23] MEDS: Albuterol/Iprat 2.5/0.5MG 3 ML AMPUL.NEB INHALE (10:32)
[2022-03-23 11:25] LABS: Troponin-I High Sensitivity 24.7 ng/L (<3.5-17.0)
[2022-03-23 12:49] LABS: Appearance Urine Hazy; Color Urine Yellow; Glucose Urine UA 250 mg/dL (Negative); Leukocyte Esterase Urine Negative (Negative); Nitrite Urine Positive (Negative); PH 5.5 (5.0-9.0); Specific Gravity - Urine >= 1.030 (1.005-1.025); UMIC TRIGGER UACC YES; Urine Blood Negative (Negative); Urine Ketones Negative (Negative); Urine Protein Trace mg/dL (Neg-Trace)
[2022-03-23 13:03] LABS: Bacteria Urine 4+ (None Seen); Calcium Oxalate Crystals Urine Present; Hyaline Casts Urine 0-2 /LPF (0-2); RBC Urine 0-2 /HPF (0-2); UACC Culture Trigger YES; WBC Urine 0-5 /HPF (0-5)
[2022-03-23] MEDS: cefTRIAXone sodium 1 GM in 0.9 % Sodium Chloride 50 ML IV (13:09)
--- NOTE | 2022-03-23 14:06 | PC.NURSE ---
patient a/o . no n/v prior to discharge . went over instructions as ordered by provider . patient able to teach back instructions . no questions at this time . told to return if symptoms worsen . no questions at this time .
== END 2022-03-23 14:09 | disposition home or self-care (01) ==
PROVIDERS: Emergency Provider Emergency Medicine; PCP Internal Medicine
DX: N39.0 Urinary tract infection, site not specified (principal); B96.20 Unspecified Escherichia coli [E. coli] as the cause of diseases classified elsewhere; R19.7 Diarrhea, unspecified; R11.2 Nausea with vomiting, unspecified; R53.1 Weakness; R60.0 Localized edema; I10 Essential (primary) hypertension; E11.9 Type 2 diabetes mellitus without complications; Z79.02 Long term (current) use of antithrombotics/antiplatelets; Z79.4 Long term (current) use of insulin; Z79.82 Long term (current) use of aspirin; Z79.899 Other long term (current) drug therapy; F17.210 Nicotine dependence, cigarettes, uncomplicated; Z20.822 Contact with and (suspected) exposure to COVID-19
CPT/HCPCS: 36415; 71045; 74176; 80048; 80076; 81001; 83690; 83735; 83880; 84484; 85025; 87086; 87088; 87186; 87635; 93005; 94640; 96365; 96375; 99284; 99285; J0696; J2405

== ENCOUNTER → 2022-03-25 13:14 | Outpatient (BNVA) | payer MEDICARE, OTHER, SELFPAY | PROVIDERS: PCP Internal Medicine; Visit Provider Internal Medicine | DX: J44.9 Chronic obstructive pulmonary disease, unspecified (principal); G47.33 Obstructive sleep apnea (adult) (pediatric); G47.34 Idiopathic sleep related nonobstructive alveolar hypoventilation; E66.01 Morbid (severe) obesity due to excess calories; F17.210 Nicotine dependence, cigarettes, uncomplicated; Z79.899 Other long term (current) drug therapy; Z99.81 Dependence on supplemental oxygen | CPT/HCPCS: 99212 ==

== ENCOUNTER → 2022-05-24 13:14 | Outpatient (BNVA) | payer MEDICARE, OTHER, SELFPAY | PROVIDERS: PCP Internal Medicine; Visit Provider Internal Medicine Cardiovascular Disease | DX: R06.02 Shortness of breath (principal); I10 Essential (primary) hypertension; Z95.2 Presence of prosthetic heart valve | CPT/HCPCS: 99212 ==

== ENCOUNTER → 2022-12-02 13:31 | Outpatient (BNVA) | payer MEDICARE, OTHER, SELFPAY | PROVIDERS: PCP Internal Medicine; Referring Provider Internal Medicine; Visit Provider Internal Medicine Cardiovascular Disease | DX: I11.9 Hypertensive heart disease without heart failure (principal); I43 Cardiomyopathy in diseases classified elsewhere; Z95.2 Presence of prosthetic heart valve | CPT/HCPCS: 99212 ==

== ENCOUNTER 2023-04-05 13:29 | Outpatient (AMB) | payer MEDICARE, OTHER, SELFPAY ==
[2023-04-05 13:33] VITALS: BP 120/42; PULSE 92; O2SAT 96; BMI 41.2
--- NOTE | 2023-04-05 13:33 | MHC.OFFVIS ---
Intake Vital Signs 04/05/23 13:33 Height 5 ft 4 in Weight 240 lb 4.862 oz BMI 41.2 BP 120/42 L Blood Pressure Location Lt brachial Position Sitting Pulse 92 Pulse Source Pulse Oximeter Pulse Oximetry (%) 96 Oxygen Delivery Method Room Air Intake Visit Reasons: COPD Intake Note: pt is here for follow up and states she does use oxygen at night, and daytime use with lying down, but she is noticing that she feels more short of breath and needing it during the day now and than. pt also states some off balance at times. 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 Required: No Allergies bee pollen [BEE STINGS] Allergy (Intermediate, Verified 04/05/23 13:55) SWELLING cyclobenzaprine [From Flexeril] Allergy (Mild, Verified 04/05/23 13:55) UNKNOWN Penicillins Allergy (Mild, Verified 04/05/23 13:55) UNKNOWN metformin [From GLUCOPHAGE] Allergy (Unknown, Verified 04/05/23 13:55) SEVER DIARRHEA Medication List - Last Reconciled 04/05/23 by Marcus Arreguin MD albuterol sulfate 90 mcg/actuation inhalation amitriptyline 100 mg PO BEDTIME aspirin (Adult Low Dose Aspirin) 81 mg PO DAILY atorvastatin 80 mg PO DAILY dulaglutide (Trulicity) 1.5 mg subcut QWEEK fluticasone propion-salmeterol 230-21 mcg/actuation (Advair HFA) 2 puffs inhalation BID furosemide 40 mg PO Q OTHER DAY PRN glipizide 10 mg PO BID ibuprofen 800 mg PO TID insulin glargine 104 units subcut QPM insulin syringe-needle U-100 As directed losartan-hydrochlorothiazide 100-25 mg 1 tab PO DAILY Do you need a note to return to daycare/school/sports/work: No HPI COPD HPI Details This 77years old jennifer beauchamp comes for fo llow-up after 1 ye ar. She has marke dly impaired locom otion and remains mostly housebound. During the day s he stays in the [facility] chair. At nigh t she is able to s leep in the bed wi th slightly proppe d up head . Surpri singly in spite of this her breathin g has remained sta ble. She has had n o bouts of respira tory infection. A nd she has had no acute exacerbation . In September 2021 cj tee had aortic valve replacement by T AVR procedure, and has done much bet ter since then as far as her shortne ss of breath is co ncerned. From pulm onary point of vie w she is being richie ated for morbid ob esity, SHANNON, COPD. Continues to smok e in fact she has increased back to 2 packs a day. She accepts the conse quences, and is we ll aware of the ri sks involved with continued smoking. For sleep apnea s he was not able to use CPAP. She use s oxygen 2 L/minut e throughout the n ight and p.r.n. du ring the daytime. She remains morbid ly obese, mostly i n wheelchair, and mostly homebound. Denies any cough or expectoration, or any wheezing at tacks. [facility] Medical History Morbid obesity Vertigo Seizure Stroke Diabetes HTN (hypertension) Aortic stenosis Nocturnal hypoxemia SHANNON (obstructive sleep apnea) Smoker COPD (chronic obstructive pulmonary disease) Surgical History S/P TAVR (transcatheter aortic valve replacement) Retained myringotomy tube in left ear Family History Father No problems noted. Mother No problems noted. Social History Cigarette Packs Per Day: 2 Cigarettes Per Day: 40 Years Smoked: started at 27 years old Review of Systems Const All systems reviewed & are unremarkable except as noted in HPI and below Reports fatigue and Reports lethargy Eyes Reports no additional complaints ENT Reports no additional complaints Card Details: As noted above, she has tight aortic stenosis Resp Reports as per HPI GI Reports no additional complaints Reports no additional complaints Musc Reports abnormal gait (Patient ambulates only with a walker due to impaired mobility), Reports back pain, Reports myalgias and Reports arthralgias (Niece) Skin/Breast Reports system reviewed and no additional complaints, except as documented Neuro Reports abnormal gait (Patient ambulates only with a walker due to impaired mobility) Psych Reports no additional complaints Endo Reports fatigue Physical Exam Vital Signs: Last Vital Signs Pulse 92 04/05/23 13:33 BP 120/42 L 04/05/23 13:33 Pulse Ox 96 04/05/23 13:33 Oxygen Delivery Method Room Air 04/05/23 13:33 BMI result Body Mass Index 41.2 Const General: comfortable, no acute distress, alert and awake Orientation/consciousness: patient oriented x3 HEENT Other: Has a round face and very short and obese neck. Head: Yes normal to inspection General nose exam: No nasal polyps present and No nasal discharge present Face and sinus: Yes sinuses nontender Mouth: oropharynx abnormals (Very crowded oropharynx, Mallampati class 4) Throat: Yes posterior oropharynx normal Eyes General: appearance normal, both eyes and all related structures Neck Neck: Yes normal visual inspection, Yes no lymphadenopathy, Yes trachea midline and Yes no JVD Thyroid: Thyroid normal Chest Chest palpation & inspection: normal inspection of the chest, normal palpation of entire chest wall and no tenderness Resp Other: Percussion note not perceptible due to thick chest wall Breath sounds are extremely distant, with prolonged expiratory phase. A few inspiratory crackles heard over the right base. No wheezes. Cardio Palpation: normal PMI Rate: regular rate Rhythm: regular rhythm Heart sounds: no gallops and Murmur heart sound present (Loud systolic murmur present over left sternal border and the aortic area.) GI Palpation (GI): Soft to palpation, nontender, No hepatosplenomegaly present, no masses and Other GI palpation findings present (Abdomen is grossly obese and pendulous) Auscultation: normal bowel sounds Back/Spine/Pelvis Thoracic/Lumbar Spine: thoracic and lumbar spine normal to inspection, thoraco-lumbar ROM limited and thoraco-lumbar spasm Skin General skin exam: no rashes or lesions noted Neuro General: patient oriented x3, No gait normal (Gait is impaired patient ambulates with the walker, slowly) and no focal motor deficits Cranial nerves: Yes CN's II-XII intact bilaterally Extrem General: Yes normal to inspection, Yes no calf tenderness, Yes edema (Both legs are swollen 1 + no active infection or tenderness ) and Yes venous stasis dermatitis Psych Appearance: grossly normal and other (Slightly depressed, worried about her forthcoming cardiac procedure) Speech and movement: Normal speech and movement present Assessment & Plan Assessment & Plan (1) Morbid obesity: Comment: She looks morbidly obese with a round face and short neck. Could not be weighed as she is in the wheelchair. She is mostly sedentary at home there is no potential for losing much weight. Code(s): E66.01 - Morbid (severe) obesity due to excess calories (2) SHANNON (obstructive sleep apnea): Comment: HAS NOT BEEN ABLE TO USE CPAP, SO SHE IS CONTENT WITH USING OXYGEN AT NIGHT. CONT. TO USE O2 2L/MT AT NIGHT Code(s): G47.33 - Obstructive sleep apnea (adult) (pediatric) (3) Nocturnal hypoxemia: Comment: PATIENT USES OXYGEN AT NIGHT 2 L/MINUTE, AND IS BENEFITTING. SHE IS ADVISED TO CONTINUE 2 L/MINUTE THROUGHOUT THE WHOLE NIGHT AND ALSO P.R.N. DURING DAYTIME. Code(s): G47.34 - Idiopathic sleep related nonobstructive alveolar hypoventilation (4) Smoker: Comment: STILL SMOKES , AND IS BACK TO 2 PACKS A DAY. COUNSELED TO QUIT SMOKING OR AT LEAST CUT IT WEIGHT DOWN. BUT SHE IS OF HER OWN MIND, AND DOES NOT HAVE ANY WILL POWER OR INTENTION TO QUIT SMOKING. SHE IS FULLY AWARE OF THE CONSEQUENCES AND RISKS INVOLVED IN CONTINUED SMOKING. Code(s): F17.200 - Nicotine dependence, unspecified, uncomplicated (5) COPD (chronic obstructive pulmonary disease): Comment: COPD IS REMAINING VERY STABLE. ADVISED TO CONT. ADVAIR HFA 230-21 2 PUFFS BID , AND ALBUTEROL HFA 2 PUFFS Q 6 HRS PRN . Code(s): J44.9 - Chronic obstructive pulmonary disease, unspecified Coding Level of Care Code Est Pt Level 4 (52916) Diagnoses Morbid obesity E66.01 SHANNON (obstructive sleep apnea) G47.33 Nocturnal hypoxemia G47.34 Smoker F17.200 COPD (chronic obstructive pulmonary disease) J44.9
== END 2023-04-05 13:59 | disposition home or self-care (01) ==
PROVIDERS: PCP Internal Medicine; Visit Provider Internal Medicine
DX: E66.01 Morbid (severe) obesity due to excess calories (principal); G47.33 Obstructive sleep apnea (adult) (pediatric); G47.34 Idiopathic sleep related nonobstructive alveolar hypoventilation; F17.200 Nicotine dependence, unspecified, uncomplicated; J44.9 Chronic obstructive pulmonary disease, unspecified
CPT/HCPCS: 99214

== ENCOUNTER → 2023-04-05 13:29 | Outpatient (BNVA) | payer MEDICARE, OTHER, SELFPAY | PROVIDERS: Visit Provider Internal Medicine | DX: J44.9 Chronic obstructive pulmonary disease, unspecified (principal); G47.34 Idiopathic sleep related nonobstructive alveolar hypoventilation; G47.33 Obstructive sleep apnea (adult) (pediatric); E66.01 Morbid (severe) obesity due to excess calories; F17.210 Nicotine dependence, cigarettes, uncomplicated; Z68.41 Body mass index [BMI] 40.0-44.9, adult | CPT/HCPCS: 99212 ==

== ENCOUNTER 2023-08-08 12:31 | Outpatient (AMB) | payer MEDICARE, OTHER, SELFPAY ==
[2023-08-08 12:34] VITALS: BP 124/82; PULSE 92; BMI 40.9
--- NOTE | 2023-08-08 12:34 | A.OFFVIS_ITS ---
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 Laundry Assistant Required: No Chief Port Director: Chief Port Director Present Accompanied by: Spouse Allergies bee pollen [BEE STINGS] Allergy (Intermediate, Verified 04/05/23 13:55) SWELLING cyclobenzaprine [From Flexeril] Allergy (Mild, Verified 04/05/23 13:55) UNKNOWN Penicillins Allergy (Mild, Verified 04/05/23 13:55) UNKNOWN metformin [From GLUCOPHAGE] Allergy (Unknown, Verified 04/05/23 13:55) SEVER DIARRHEA Medication List - Last Reconciled 08/08/23 by Alberto Caceres MD albuterol sulfate 90 mcg/actuation inhalation amitriptyline 100 mg PO BEDTIME aspirin (Adult Low Dose Aspirin) 81 mg PO DAILY atorvastatin 80 mg PO DAILY dulaglutide (Trulicity) 1.5 mg subcut QWEEK fluticasone propion-salmeterol 230-21 mcg/actuation (Advair HFA) 2 puffs inhalation BID furosemide 40 mg PO Q OTHER DAY PRN glipizide 10 mg PO BID ibuprofen 800 mg PO TID insulin glargine 104 units subcut QPM insulin syringe-needle U-100 As directed losartan-hydrochlorothiazide 100-25 mg 1 tab PO DAILY HPI HPI Comments History of Present Illness Details Silvia comes for follow-up. She is minimally functional at this point time came to the office in a wheelchair. Uses oxygen at nighttime. Has sleep apnea but not on CPAP therapy. Has underlying COPD. She also is currently still smoking and says that she is very anxious as her recently got diagnosed with gastric cancer. She says she is tired because she has not sleeping. She also has more gastric upset. She denies any palpitations, clear orthopnea, PND, leg edema. No exertional chest pain. She is worried about her calcific mitral valve disease and is wondering if there is any interventional therapy for it [facility] Medical History Morbid obesity Vertigo Seizure Stroke Diabetes HTN (hypertension) Aortic stenosis Nocturnal hypoxemia SHANNON (obstructive sleep apnea) Smoker COPD (chronic obstructive pulmonary disease) Surgical History S/P TAVR (transcatheter aortic valve replacement) Retained myringotomy tube in left ear Family History Father No problems noted. Mother No problems noted. Social History Cigarette Packs Per Day: 2 Cigarettes Per Day: 40 Years Smoked: started at 27 years old Review of Systems Const Denies chills, Denies fatigue, Denies fever(s), Denies frequent falls, Denies weakness, Denies weight gain and Denies weight loss ENT Denies dizziness Card Denies chest pain, Denies leg edema, Denies lightheadedness, Denies palpitations, Denies dyspnea, Denies dyspnea on exertion, Denies orthopnea and Denies other (loss of consciousness) Resp Denies cough, Denies dyspnea and Denies dyspnea on exertion GI Denies hematochezia and Denies change in stool character Musc Denies abnormal gait, Denies muscle weakness, Denies numbness, Denies radiating pain into limb and Denies tingling Neuro Denies abnormal gait, Denies dizziness, Denies frequent falls, Denies numbness, Denies tingling and Denies weakness Endo Denies fatigue and Denies palpitations Physical Exam Vital Signs: Last Vital Signs Pulse 92 08/08/23 12:34 BP 124/82 08/08/23 12:34 BMI result Body Mass Index 40.9 Const General: cooperative, comfortable, alert and awake Nutritional Appearance: obese morbidly obese Orientation/consciousness: patient oriented x3 Limitations: ambulation with walker Neck Neck: Yes trachea midline and Yes supple Carotids: delayed carotid upstroke Resp Effort & Inspection: normal respiratory effort Auscultation: no rales, no wheezes and diminished lung sounds Cardio Jugular venous distension: no JVD Rate: regular rate Rhythm: regular rhythm Heart sounds: S1 normal heart sound present, S2 normal heart sound present, no click, no gallops and Other heart sounds present (Absent S2) GI Auscultation: normal bowel sounds Skin General skin exam: no rashes or lesions noted Neuro General: patient oriented x3 and no focal motor deficits Extrem General: No clubbing, No cyanosis and Yes edema Psych Appearance: grossly normal Office Procedures EKG Details: EKG shows normal sinus rhythm with QS pattern in lead V1 V2 most likely due to l ead placement with no significant ST T wave changes [id number], Complete Assessment & Plan Assessment & Plan (1) S/P TAVR (transcatheter aortic valve replacement): Comment: 26 mm Medtronic Evolut transcatheter aortic valve replacement, September 2021 Code(s): Z95.2 - Presence of prosthetic heart valve Plan: Status post transcatheter aortic valve replacement for severe aortic stenosis. Clinically the valve seems to be working well. Continue SBE prophylaxis as per ACC/aha guidelines. Continue low-dose aspirin therapy. Continue aggressive risk factor modification including high-intensity statin therapy. Continue aggressive diabetes management as well as hypertension control which is optimized. Unfortunately she continues to smoke and this needs to be stopped to prevent progressive degenerative changes including see below (2) Hypertensive cardiomyopathy: Code(s): I11.9 - Hypertensive heart disease without heart failure; I43 - Cardiomyopathy in diseases classified elsewhere Plan: Hypertensive cardiomyopathy well optimized blood pressure at this point time. No symptoms related to it. Continue current antihypertensive therapy. Will follow up with echocardiogram in near future to assess for obstructive physiology. No signs or symptoms of heart failure. Continue aggressive management of her underlying pulmonary condition and if she is sleep apnea consider CPAP therapy. (3) Mitral stenosis: Code(s): I05.0 - Rheumatic mitral stenosis Plan: Calcific mitral stenosis related to degenerative mitral valve disease. We discussed about pathophysiology of calcific mitral valve disease. She needs to absolutely stop smoking to prevent progressive nature. There is no surgical intervention required at this point time. Will follow with echocardiogram near future. Continue low-dose aspirin therapy. Continue aggressive vascular risk factor modifications above. Will follow up in the clinic in 1 year's time, sooner p.r.n.. Thank you for allowing me to partake in her care Orders: Orders CA echo transthoracic complete Today Z95.2 - Presence of prosthetic heart valve Coding Level of Care Code Est Pt Level 4 (27792) Diagnoses S/P TAVR (transcatheter aortic valve replacement) Z95.2 Hypertensive cardiomyopathy I11.9; I43 Mitral stenosis I05.0 CPT Codes EKG - CPT: 48945-[id number], Complete ([id number])
== END 2023-08-08 13:04 | disposition home or self-care (01) ==
PROVIDERS: PCP Internal Medicine; Visit Provider Internal Medicine Cardiovascular Disease
DX: Z95.2 Presence of prosthetic heart valve (principal); I11.9 Hypertensive heart disease without heart failure; I43 Cardiomyopathy in diseases classified elsewhere; I05.0 Rheumatic mitral stenosis
CPT/HCPCS: 93010; 99214

== ENCOUNTER → 2023-08-08 12:31 | Outpatient (BNVA) | payer MEDICARE, OTHER, SELFPAY | PROVIDERS: PCP Internal Medicine; Visit Provider Internal Medicine Cardiovascular Disease | DX: I11.9 Hypertensive heart disease without heart failure (principal); I05.0 Rheumatic mitral stenosis; I43 Cardiomyopathy in diseases classified elsewhere; Z95.2 Presence of prosthetic heart valve | CPT/HCPCS: 93005; 99212 ==

== ENCOUNTER → 2023-09-07 12:46 | Outpatient (REF) | payer MEDICARE, OTHER, SELFPAY ==
--- NOTE | 2023-09-07 12:49 | CA_ITS ---
Transthoracic Echocardiogram Patient (Last, First, Middle): Silvia Watson, Gender: Female Date of : 1945 Age: 78 Procedure Date: 09/07/2023 Procedure Type: Transthoracic Echocardiogram Location: OP Height: 162.56 cm Weight: 104.33 kg BSA: 2.08 m2 Heart Rate: bpm BP: 138 / 90 mmHg Block Trader: Referring MD: Alberto Caceres MD Symptoms: Z95.2 - Presence of prosthetic heart valve Study Quality: Fair ECG Rhythm: Sinus Conclusions: - The left ventricular systolic function is normal. The calculated ejection fraction is 67% by biplane method. - A bioprosthetic aortic valve is present. The prosthetic aortic valve appears to be functioning normally. - There is severe mitral annular calcification. There is severe mitral valve stenosis (mean gradient 8mmHg at 74/min; MVA by VTI 0.97-1.04sqcm) Findings Left Ventricle Normal left ventricular cavity size. There is moderately increased left ventricular wall thickness. The left ventricular systolic function is normal. The calculated ejection fraction is 67% by biplane method. There is no evidence of regional wall motion abnormalities. Evidence suggests grade I (mild) diastolic dysfunction. Right Ventricle Normal right ventricular cavity size and systolic function. Atria The left atrium is severely dilated. The right atrium is normal in size. Aortic Valve A bioprosthetic aortic valve is present. The prosthetic aortic valve appears to be functioning normally. There is no aortic valve regurgitation. Mitral Valve There is severe mitral annular calcification. There is no mitral valve regurgitation. There is severe mitral valve stenosis. (mean gradient 8mmHg at 74/min; MVA by VTI 0.97-1.04sqcm) Pulmonic Valve The pulmonic valve is likely normal. Tricuspid Valve There is trace tricuspid valve regurgitation. There is no evidence of pulmonary hypertension. Great Vessels The asc aorta is normal in size. Venous The inferior vena cava is normal in size and collapses greater than 50% with inspiration. Pericardium/Pleural There is no evidence of pericardial effusion. Prior Study Comparison Changes noted compared to prior study dated: 11/10/2021. Progression of mitral stenosis. Measurements 2D Linear Measurements IVSd: 1.44 0.6-0.9/0.6-1.0 cm LVIDd: 3.56 3.9-5.3/4.2-5.9 cm LVIDd Index: 1.71 2.4-3.2/2.2-3.1 cm/m2 LVIDs: 2.39 2.0-3.6 cm LVPWd: 1.48 0.7-1.1 cm Ao Root: 2.50 2.1-3.5 cm LA Diam: 5.30 2.7-3.8/3.0-4.0 cm LAIDs Index: 2.55 1.5-2.3 cm/m2 LV Mass: 236.06 67-162/88-224 g LV Mass Index: 113.49 43-95/49-115 g/m2 LVOT Diam: 1.80 3.0+(-)1.3 cm 2D Systolic Function EF 4C: 71.10 >55% EF 2C: 63.10 >55% EF BiP: 66.60 >55% Mitral Valve MV VTI: 0.47 MV Pk Luis: 2.18 MV Mn Luis: 1.29 MV Pk Grad: 19.00 MV Mn Grad: 8.00 MV Pk E: 1.78 MV PK A: 2.32 MV Decel Time: 122.00 E/A: 0.80 E'Lateral: 5.00 E'Medial: 3.92 E/E' Med: 45.40 E/E' Lat: 35.60 PHT: 36.00 MVA PHT: 6.11 MVA Continuity: 1.09 Decel Mingo: 14.53 Aortic Valve AoV Pk Luis: 1.76 AoV Mn Luis: 1.25 AoV VTI: 0.37 AoV Pk Grad: 12.00 Aov Mn Grad: 7.00 MODE Cont.VTI: 1.39 LVOT LVOT Pk Luis: 0.91 LVOT Mn Luis: 0.64 LVOT VTI: 0.20 LVOT Pk Grad: 3.00 LVOT Mn Grad: 2.00 LVOT Diam: 1.80 LVOT Area: 2.54 Diastolic Function MV Pk E: 1.78 MV Pk A: 2.32 E/A: 0.80 E'Medial: 3.92 E/E' Med: 45.40 E' Laterial: 5.00 E/E' Lat: 35.60 Tricuspid Valve TR Pk Luis: 1.70 TR Pk Grad: 12.00 RA Press: 3.00 RVSP: 15.00 Great Vessels Aorta Ao Root-2D: 2.50 2.0-3.7 cm Ao Asc: 2.80 2.1-3.4 cm Pulmonary Valve PV Pk Luis: 1.13 Peak PV Grad: 5.00 Updated in Other Vendor System with Status of Final Joe García MD electronically signed on 09/08/2023 8:20:20 AM with status of Final
== END ==
LOC: HO.CARD 12:46
PROVIDERS: PCP Internal Medicine; Visit Provider Internal Medicine Cardiovascular Disease
DX: Z95.2 Presence of prosthetic heart valve (principal)
CPT/HCPCS: 93306

== ENCOUNTER → 2023-09-07 12:49 | Outpatient (BNV) | payer MEDICARE, OTHER, SELFPAY | PROVIDERS: PCP Internal Medicine; Visit Provider Internal Medicine | DX: I34.2 Nonrheumatic mitral (valve) stenosis (principal) | CPT/HCPCS: 93306 ==

== ENCOUNTER 2023-09-30 12:39 | Outpatient (REF) | payer MEDICARE, OTHER, SELFPAY ==
--- NOTE | ~2023-09-30 | CT_ITS ---
EXAMINATION: CT CHEST SCREENING CLINICAL INFORMATION: Nicotine dependence. Current smoker. One pack per day x51 years. COMPARISON: CT chest 10/21/2021. TECHNIQUE: Multidetector volumetric CT imaging of the chest is performed without contrast using low dose technique. Additional 2D coronal and sagittal reformatted images and axial 3D maximum intensity projection (MIP) images are generated on the CT workstation. This CT examination was performed using dose optimization techniques as appropriate, variously including the following: *Automated exposure control *Adjustment of mA and/or kV according to patient size (this includes techniques or standardized protocols for targeted exams where dose is matched to indication/reason for exam; i.e. extremities or head) *Use of iterative reconstruction technique DLP: 79 mGy-cm FINDINGS: LUNGS: Mild emphysematous changes are present along with mild peribronchial thickening. Small unchanged scattered pulmonary micronodules are seen, none larger than 3 mm. King images of all have been saved. The lungs are otherwise clear with no evidence of inflammation or worrisome or new nodules. MEDIASTINUM: Prominent unchanged 1.3 cm precarinal lymph node along with some other smaller hilar and mediastinal lymph nodes. No worrisome adenopathy. Patient status post TAVR. CORONARY ARTERY CALCIFICATION: Extensive PLEURA: There is no pleural effusion. No pleural mass or thickening. AXILLA: No lymphadenopathy. UPPER ABDOMEN: Unremarkable OSSEOUS STRUCTURES: Degenerative changes are present in the spine. CT/CT lung screening IMPRESSION: Stable small pulmonary micronodules. Mild emphysema. No evidence of malignancy. ASSESSMENT: Lung-RADS category 2: Benign RECOMMENDATION: Routine annual low-dose CT screening in 12 months.
== END 2023-09-30 12:40 | disposition home or self-care (01) ==
LOC: HO.CT 12:39
PROVIDERS: PCP Internal Medicine; Visit Provider Physician Assistant Medical
DX: Z12.2 Encounter for screening for malignant neoplasm of respiratory organs (principal); F17.210 Nicotine dependence, cigarettes, uncomplicated
CPT/HCPCS: 71271

== ENCOUNTER 2024-08-07 12:09 | Outpatient (AMB) | payer MEDICARE, OTHER, SELFPAY ==
--- NOTE | 2024-08-07 12:29 | A.OFFVIS_ITS ---
Vital Signs 08/07/24 12:30 Height 5 ft 4 in Weight 244 lb 11.41 oz BMI 42.0 BP 136/84 Blood Pressure Location Lt brachial Position Sitting Pulse 95 Intake Visit Reasons: 1 yr f/up s/p echo Intake Note: 1 year follow-up with ekg after echo c/o increased fatigue and palpitations at times Applications Systems Engineer Required: No Crimper Assembler: Crimper Assembler Present Accompanied by: Spouse Allergies bee pollen [BEE STINGS] Allergy (Intermediate, Verified 04/05/23 13:55) SWELLING cyclobenzaprine [From Flexeril] Allergy (Mild, Verified 04/05/23 13:55) UNKNOWN Penicillins Allergy (Mild, Verified 04/05/23 13:55) UNKNOWN metformin [From GLUCOPHAGE] Allergy (Unknown, Verified 04/05/23 13:55) SEVER DIARRHEA Medication List - Last Reconciled 08/07/24 by Alberto Caceres MD albuterol sulfate 90 mcg/actuation inhalation amitriptyline 100 mg PO BEDTIME aspirin (Adult Low Dose Aspirin) 81 mg PO DAILY atorvastatin 80 mg PO DAILY dulaglutide (Trulicity) 1.5 mg subcut QWEEK furosemide 40 mg PO Q OTHER DAY PRN glipizide ER (Glucotrol XL) 5 mg PO DAILY ibuprofen 800 mg PO TID insulin glargine 104 units subcut QPM insulin syringe-needle U-100 As directed losartan 25 mg PO DAILY HPI Comments Details: Prem comes for annual follow-up. Unfortunately she continues to smoke. She continues to be very limited in terms of her shortness of breath exertion. She denies any clear orthopnea or PND or leg edema. No lightheadedness, syncope. She denies any prolonged palpitation irregular heartbeat. She uses oxygen at nighttime for COPD. Her echocardiogram last year showed calcific mitral steno sis moderately severe. Patient takes all her medications. [facility] Medical History Morbid obesity Vertigo Seizure Stroke Diabetes HTN (hypertension) Aortic stenosis Nocturnal hypoxemia SHANNON (obstructive sleep apnea) Smoker COPD (chronic obstructive pulmonary disease) Surgical History S/P TAVR (transcatheter aortic valve replacement) Retained myringotomy tube in left ear Family History Father No problems noted. Mother No problems noted. Social History Cigarette Packs Per Day: 2 Cigarettes Per Day: 40 Years Smoked: started at 27 years old Review of Systems Const Denies chills, Denies fatigue, Denies fever(s), Denies frequent falls, Denies weakness, Denies weight gain and Denies weight loss ENT Denies dizziness Card Denies chest pain, Denies leg edema, Denies lightheadedness, Denies palpitations, Denies dyspnea, Denies dyspnea on exertion, Denies orthopnea and Denies other (loss of consciousness) Resp Denies cough, Denies dyspnea and Denies dyspnea on exertion GI Denies hematochezia and Denies change in stool character Musc Denies abnormal gait, Denies muscle weakness, Denies numbness, Denies radiating pain into limb and Denies tingling Neuro Denies abnormal gait, Denies dizziness, Denies frequent falls, Denies numbness, Denies tingling and Denies weakness Endo Denies fatigue and Denies palpitations Physical Exam Vital Signs: Last Vital Signs Pulse 95 08/07/24 12:30 BP 136/84 08/07/24 12:30 BMI result Body Mass Index 42.0 Const General: cooperative, comfortable, alert and awake Nutritional Appearance: obese morbidly obese Orientation/consciousness: patient oriented x3 Limitations: ambulation with walker Neck Neck: Yes trachea midline and Yes supple Carotids: delayed carotid upstroke Resp Effort & Inspection: normal respiratory effort Auscultation: no rales, no wheezes and diminished lung sounds Cardio Jugular venous distension: no JVD Rate: regular rate Rhythm: regular rhythm Heart sounds: S1 normal heart sound present, S2 normal heart sound present, no click, no gallops and Other heart sounds present (Absent S2) GI Auscultation: normal bowel sounds Skin General skin exam: no rashes or lesions noted Neuro General: patient oriented x3 and no focal motor deficits Extrem General: No clubbing, No cyanosis and Yes edema Psych Appearance: grossly normal Office Procedures EKG Details: EKG shows normal sinus rhythm with PACs low-voltage QRS with ST T wave changes which may represent repolarization abnormality 40612-[id number], Complete Assessment & Plan Assessment & Plan (1) SOB (shortness of breath) on exertion: Code(s): R06.02 - Shortness of breath Category: Medical Plan: Patient was significant shortness of breath exertion which appears to be multifactorial. I am not sure if this is solely related to mitral stenosis. There is high likelihood that this is more likely contributed by a pulmonary parenchymal disease and continued smoking as well as restrictive lung disease related to obesity. She also has significant deconditioning probably contributing to her exertional shortness of breath. However re-evaluate her mitral stenosis by echocardiogram. See below. Reestablish her care with Pulmonary for optimization consideration for oxygen therapy with activity. Complete smoking cessation was discussed with her although she seems not quite interested in it. Limited long-term prognosis was discussed. (2) Mitral stenosis: Code(s): I05.0 - Rheumatic mitral stenosis Category: Medical Plan: Mitral stenosis calcific with severe mitral calcification. Will reassess mitral valve with echocardiogram. If there is any progressive mitral valve disease will pursue further evaluation for see if she would be a candidate for any intervention and may require cardiac catheterization to hemodynamic evaluation. Will schedule that following her echocardiogram if necessary. However she needs to reestablish with Pulmonary Medicine for management of her COPD and possible requirement oxygen supplementation with exercise. Continue COPD management. Complete smoking cessation was advised. (3) S/P TAVR (transcatheter aortic valve replacement): Comment: 26 mm Medtronic Evolut transcatheter aortic valve replacement, September 2021 Code(s): Z95.2 - Presence of prosthetic heart valve Category: Surgical Plan: Status post transcatheter aortic valve replacement working well clinically. Follow-up echocardiogram as above. Continue low-dose aspirin therapy. Continue aggressive blood pressure management which is currently well optimized. Continue high-intensity statin therapy with target goal LDL less than 70 mg/dL. Continue diabetes management through your office. SBE prophylaxis as per ACC/aha guidelines. Follow up in the clinic in 4-6 weeks time. Thank you for allowing me to partake in his care Orders: Orders CA echo transthoracic complete Today I05.0 - Rheumatic mitral stenosis Coding Level of Care Code Est Pt Level 4 (14752) Complex EM visit Add On G2211 Diagnoses SOB (shortness of breath) on exertion R06.02 Mitral stenosis I05.0 S/P TAVR (transcatheter aortic valve replacement) Z95.2 CPT Codes EKG - CPT: 07308-[id number], Complete ([id number])
[2024-08-07 12:30] VITALS: BP 136/84; PULSE 95; BMI 42.0
--- OUTSIDE RECORDS SUMMARY | 2024-08-07 13:06 | XMS_ITS | Continuity of Care Document ---
Author Organization [facility] David Reardon Josue lt Address [address] [place] [address]- Care Team Providers Care Senior Project Manager Name Role Phone Lon Bishop MD Primary Care Physician [phone] [place] [facility] [place]12[place]24 - 07/12/24 [facility] Adult [address] [place] [address]- Encounter Type: Triage Allergies, Adverse Reactions, Alerts Substance Criticality Severity Reaction Reaction Severity Status clindamycin Active lidocaine Active Other Food Allergy 1 FOOD WITH TANNEN Active Vicodin Active penicillin 2 Active levofloxacin Active Flexeril Active Questran Active oxyCODONE Active Glucophage DIARRHEA Active 1TICHING AND BLISTERS 2itching, redness Immunizations Given and Recorded Vaccine Date Status Refusal Reason influenza virus vaccine, inactivated 06/04/23 Denzel rded influenza virus vaccine, inactivated 04/13/22 Denzel rded influenza virus vaccine, inactivated 05/12/21 Denzel rded influenza virus vaccine, inactivated 04/22/20 Give n influenza virus vaccine, inactivated 08/14/19 Give n influenza virus vaccine, inactivated 05/16/17 Give n influenza virus vaccine, inactivated 05/07/16 Give n influenza virus vaccine, inactivated 07/07/15 Give n influenza virus vaccine, inactivated 06/20/14 Give n influenza virus vaccine, inactivated 04/17/13 Give n RSV vaccine preF3, recombinant 05/10/23 Recorded pneumococcal 20-valent conjugate vaccine 05/05/23 Given SARS-CoV-2(COVID-19)mRNA-LNP vac([id number]) 04/19/23 Recorded [id number] bivalent booster vax 04/13/22 Recorded SARS-CoV-2 (COVID-19) mRNA-1273 vaccine 10/14/21 R ecorded SARS-CoV-2 (COVID-19) mRNA-1273 vaccine 05/12/21 R ecorded SARS-CoV-2 (COVID-19) mRNA-1273 vaccine 09/08/20 R ecorded SARS-CoV-2 (COVID-19) mRNA-1273 vaccine 09/08/20 R ecorded SARS-CoV-2 (COVID-19) mRNA-1273 vaccine 08/10/20 R ecorded SARS-CoV-2 (COVID-19) mRNA-1273 vaccine 08/10/20 R ecorded tetanus/diphtheria/pertussis, acel(Tdap) 03/17/18 Given pneumococcal 13-valent vaccine 12/24/14 Given pneumococcal 23-valent vaccine 04/17/13 Given FluLaval (oldterm) 1 05/23/12 Given FluLaval (oldterm) 2 06/12/10 Given Influenza Virus Vaccine (oldterm) 3 04/04/09 Given Influenza Virus Vaccine (oldterm) 4 05/12/07 Given tetanus-diphtheria toxoids (Td) 08/27/08 Given tetanus-diphtheria toxoids (Td) 10/09/97 Given Influenza Inactive (IM) (oldterm) 5 05/18/06 Given Pneumococcal Vaccine (oldterm) 04/14/05 Given 1Admin Note: [facility] [facility] 2Admin Note: [employer] [facility] 3Admin Note: GIVEN BY JEREMY DOC BY NICHOLAS 4Admin Note: given in clinic 5Admin Note: GIVEN IN FLU CLINIC S HAD MED SANOFI PASTEUR Medications Advair HFA 230 mcg / 21 mcg 2 puffs, Inhalation, 2 times a day, for 30 days, rinse mouth and throat after use use with spacer chamber, # 1 each, 6 Refills, Hard Stop 03/05/16 9:57:37 AM EDT, 08/08/15 9:57:37 AM EST, Aerosol, [facility] [address], 2 puffs Inhalation 2 times a day,x30 days,Instr:rinse mouth and throat after use; use with spacer chamber Start Date: 08/08/15 Stop Date: 03/05/16 Status: Ordered Quantity: 1.0 Unit: each Repeat number: 7 amitriptyline 100 mg oral tablet 2 tablet, By Mouth, Daily at bedtime, # 180 tablet, 1 Refills, Maintenance, 07/12/24 1:46:00 PM EST, [facility], 162, cm, 02/09/24 11:08:00 EDT, Height Start Date: 07/12/24 Status: Ordered Quantity: 180.0 Unit: tablet Repeat number: 1 atorvastatin 40 mg oral tablet 1 tablet = 40 mg, By Mouth, Daily, # 90 tablet, 3 Refills, Maintenance, 08/15/23 10:31:00 AM EST, Tablet, [facility], Partial fill upon patient request if the prescription is for a schedule II opioid drug., 162, cm, 08/15/23 10:06:00 EST, Height, 117.3, kg, 09/11/21 6:32:00 EST, Dry Weight Start Date: 08/15/23 Status: Ordered Quantity: 90.0 Unit: tablet Repeat number: 4 BD Ultra-Fine 33G Lancets See Instructions, # 100 application, Refills 11, Tot. Refills 11, Maintenance, test blood sugar 3 times daily, 12/06/12 11:59:13 AM EDT Start Date: 12/06/12 Status: Ordered Quantity: 100.0 Unit: application Repeat number: 12 folic acid 0.8 mg oral tablet 1 tablet = 0.8 mg, By Mouth, Daily, # 90 tablet, 3 Refills, Maintenance, 08/24/23 3:19:00 PM EST, [facility], Partial fill upon patient request if the prescription is for a scheduleII opioid drug., 162, cm, 08/15/23 10:06:00 EST, Height, 117.3, kg, 09/11/21 6:32:00 EST, Dry Weight Start Date: 08/24/23 Status: Ordered Quantity: 90.0 Unit: tablet Repeat number: 4 Freestyle Lite Lancets See Instructions, # 300 each, Refills 3, Tot. Refills 3, Maintenance, Dx: Diabetes type 2 (E11.9) 28g Lancets Use to check blood sugars three times a day., 10/12/23 1:22:00 PM EDT, Supply, 162, cm, 08/15/23 10:06:00 EST, Height Start Date: 10/12/23 Status: Ordered Quantity: 300.0 Unit: each Repeat number: 4 Freestyle Lite Monitor See Instructions, # 1 each, Refills 0, Tot. Refills 0, Maintenance, TEST BS TID E11.9, 08/05/15 3:29:54 PM EST, Compound Start Date: 08/05/15 Status: Ordered Quantity: 1.0 Unit: each Repeat number: 1 Freestyle Lite Test Strips See Instructions, # 300 each, Refills 1, Tot. Refills 1, Maintenance, TEST BS TID E11.9 IDDMII, 05/04/23 2:19:00 PM EDT, REPLACES ONE TOUCH ULTRA TEST STRIPS, Compound, 162, cm, 05/04/23 13:40:00 EDT, Height, 117.3, kg, 09/11/21 6:32:00 EST, Dry Weight Start Date: 05/04/23 Status: Ordered Quantity: 300.0 Unit: each Repeat number: 2 Freestyle Lite Test Strips See Instructions, # 300 each, Refills 3, Tot. Refills 3, Maintenance, Dx: Diabetes type 2 (E11.9) Use to check blood sugars three times a day., 10/12/23 1:22:00 PM EDT, Supply, 162, cm, 08/15/23 10:06:00 EST, Height Start Date: 10/12/23 Status: Ordered Quantity: 300.0 Unit: each Repeat number: 4 furosemide 20 mg oral tablet See Instructions, 0.5 tablet by mouth daily as needed for edema., # 30 tablet, Refills 11, Tot. Refills 11, Maintenance, 02/09/24 11:54:00 AM EDT, Instructions Replace Required Details, Route to Pharmacy Electronically, [facility], Partial fill upon patient request if the prescription is for a schedule II opioid drug., 162, cm, 02/09/24 11:08:00 EDT, Height Start Date: 02/09/24 Status: Ordered Quantity: 30.0 Unit: tablet Repeat number: 12 glipiZIDE 5 mg oral tablet, extended release 1 tablet = 5 mg, By Mouth, Daily, # 90 tablet, 3 Refills, Maintenance, 11/09/23 2:36:00 PM EDT, ER Tablet, [facility], Partial fill upon patient request if the prescription is for a schedule II opioid drug., 162, cm, 11/09/23 14:18:00 EDT, Height Start Date: 11/09/23 Status: Ordered Quantity: 90.0 Unit: tablet Repeat number: 4 ibuprofen 800 mg oral tablet 1, tablet, By Mouth, 3 times a day, # 270 tablet, Refills 1, Maintenance, 05/29/24 11:05:00 AM EST,Route to Pharmacy Electronically, [facility], 162, cm, 02/09/24 11:08:00 EDT, Height Start Date: 05/29/24 Status: Ordered Quantity: 270.0 Unit: tablet Repeat number: 1 Insulin Syringe, BD Ultra-Fine 0.5 cc 31 G x 8 mm (5/16in) See Instructions, # 200 each, Refills 3, Tot. Refills 3, Maintenance, Use with lantus insulin twicedaily for IDDMII E11.9 [facility], 10/18/23 1:28:00 PM EDT, Compound, 162, cm, 08/15/23 10:06:00 EST, Height Start Date: 10/18/23 Status: Ordered Quantity: 200.0 Unit: each Repeat number: 4 Lantus 100 u/ml subcutaneous solution See Instructions, INJECT 52 UNITS UNDER THE SKIN TWICE A DAY, # 90 mL, 1 Refills, Maintenance, 06/12/24 7:59:00 AM EST, [facility], 162, cm, 02/09/24 11:08:00 EDT, Height Start Date: 06/12/24 Status: Ordered Quantity: 90.0 Unit: mL Repeat number: 1 losartan 25 mg oral tablet 25 mg, 1, tablet, By Mouth, Daily, # 90 tablet, Refills 3, Tot. Refills 3, Maintenance, 08/15/23 10:30:00 AM EST, Route to Pharmacy Electronically, [facility], Partial fill upon patient request if the prescription is for a schedule II opioid drug., 162, cm, 08/15/23 10:06:00 EST, Height, 117.3, kg, 09/11/21 6:32:00 EST, Dry Weight Start Date: 08/15/23 Status: Ordered Quantity: 90.0 Unit: tablet Repeat number: 4 Problem List Condition Confirmation Course Effective Dates Status Health Status Informant Allergic Rhinitis Confirmed Active Anemia, mild Confirmed Active Anxiety Confirmed Active Aortic stenosis 1, 2, 3 Confirmed Active Benign hypertension Confirmed Active BMI 40.0-44.9, adult Confirmed Active COPD (chronic obstructive pulmonary disease) Confirmed Active CKD (chronic kidney disease) stage 1, GFR 90 ml/min or greater Confirmed Active Colonoscopy 4 Confirmed Active Complex partial seizure disorder 5 Confirmed Active CHF (NYHA class III, ACC/AHA stage C) Confirmed Active Edema of lower extremity Confirmed Active Esophagogastroduodenoscopy [egd] with Closed Biopsy 6 Confirmed Active Murmur 7 Confirmed Active S/P TAVR (transcatheter aortic valve replacement) Confirmed Active Hypercholesterolemia Confirmed Active Irritable bowel syndrome (IBS) Confirmed Active long term current use of insulin Confirmed Active Low back pain Confirmed Active Depression, major, in partia l remission Confirmed Active Neuropathy in diabetes Confirmed Active Proteinuria Confirmed 12/01/10 Active Serrated polyp of colon 8 Confirmed 11/22/18 Active Severe aortic stenosis Confirmed Active Severe obesity Confirmed Active Venous stasis dermatitis of both lower extremities Confirmed Active Tobacco abuse Confirmed Active Type 2 diabetes, uncontrolled, with neuropathy Confirmed Active Type II diabetes mellitus with renal manifestations, uncontrolled Confirmed Active Unsteady gait Confirmed Active Venous stasis syndrome Confirmed Active Vitamin D Deficiency Confirmed Active 1Status post TAVR 60140 progresses slightly, [facility] 4[facility] normal, repeat 2011 5Dr. Rubén 2014 6endoscopy 2002 normal 7systolic 8repeat screening colonoscopy in 2023 Social History Social History Type Response Smoking Status Current every day sm oker; Tobacco user in household: No; Type: Cigarettes entered on: 10/28/16 Sex Sex Representation Female (finding) Patient Care team information Care Team Personnel Name: Lon Bishop MD Position: [facility] Physician - Primary Care Member Role: PCP Address: [address] [place] [address]- Telecom: Name: Danelle [place] RN Position: [facility] RN Member Role: Primary Care Nurse Care Team Related Persons Name: SIRI POWELL Insurance Providers Guarantor name: AMRYSE MCKEONN [employer] Plan Information #: 1 Payer: MEDICARE PART B OUTPT Member Number: NA Policy Number: NA Group Number: NA Health Plan Information #: 2 Payer: FOR LIFE MCR A ONLY Member Number: NA Policy Number: NA Group Number: NA
--- OUTSIDE RECORDS SUMMARY | 2024-08-07 13:06 | XMS_ITS | Patient Health Record ---
Author Organization [facility] Address [address] [place] [address] Care Team Providers Care Veneer Gluer Name Role Phone Lon Bishop MD Primary Care Provider Phyllis Abrams Unavailable [phone] Allergies Allergen (clinical drug ingredient) Drug/Non Drug Allergy documented on EMR Reaction Allergy Type Onset Date Status Penicillin icthing,burning red skin Drug Allergy Active Reason For Referral No Information Medications Medication SIG (Take, Route, Frequency, Duration) Notes Start Date End Date Status Extra Depth Diabetic Shoes with 3 Pair Custom heat-molded multi-density innersoles for 1 year Dx: Active Amitriptyline HCl 100 MG Orally Active Aspir-81 Active Advair HFA 230-21 MCG/ACT 2 puffs Inhalation Twice a day Active Trulicity Active oxygen At Night Active Losartan Potassium-HCTZ 100-25 MG 1 tablet Orally Once a day for 30 day(s) Active Pravastatin Sodium A ctive Ibuprofen 800 MG 1 tablet with food o r milk as needed Orally Three times a day Active Lantus 100 UNIT/ML as directed Subcutaneous Active Bydureon BCise 2 MG/0.85ML as directed Subcutaneous Not-Taking glipiZIDE 10 MG 1 tablet 30 minutes before breakfast Orally Once a day Active Ammonium Lactate 12 % 1 application to affected area Externally to feet Twice a day for 30 days Active Immunizations Vaccine Route Administration Date Status Comme nts COVID-19 Moderna Vaccine Unknown 02/08/2022 Administered 2020,2020 2020,2021 Uunsure Dates Influenza Unknown 02/08/2022 Administered Social History Tobacco Use: Social History Observation Description Date Details (start date - stop date) Former Smoker NA - NA Tobacco Use/Smoking Question Answer Notes Are you a: former smoker Additional Findings: Tobacco Non-User Ex-heavy c igarette smoker (20-30/day) Alcohol Screen Question Answer Notes Did you have a drink containing alcohol in the p ast year? No Points 0 Interpretation Negative Tobacco use other than smoking: Question Answer Notes Are you an other tobacco user? Yes Problems Problem Type SNOMED Code ICD Code Onset Dates Problem Status W/U Status Risk Notes Problem Acquired hammer toe of right foot (2489480267453456) Other hammer toe(s) (acquired), right foot (M20.41) Active confirmed Problem Acquired hammer toe of left foot (5376454637720003) Other hammer toe(s) (acquired), left foot (M20.42) Active confirmed Problem Polyneuropathy due to diabetes mellitus type I (704447261) Type 1 diabetes mellitus with diabetic polyneuropathy (E10.42) Active confirmed Problem 277130009 Hammertoe of lef t foot (M20.42) Active confirmed Problem 376513114 Hammertoe of right foot (M20.41) Active confirmed Problem [id number] Atherosclerosi s of artery of both lower extremities (I70.203) Active confirmed Plan Of Treatment Pending Test Test Name Order Date [id number] SKIN LESIONS, 2 TO 4 09/18/19 20 [id number] DYSTROPHIC NAILS ANY # Insurance Providers Payer Name Payer Address Payer Phone Subscriber Number Group Number Insured Name Patient Relationship to Insured Coverage Start Date Coverage End Date Medicare National [employer] [address] [place] [phone] [id number] Silvia Watson Self - patient is the insured for Life [address] [place] [address] [id number] Silvia Watson Self - patient is the insured Medical (General) History Medical History History ICD Code Anxiety Back,Hip,and Knee pain Broken bones Diabetic type ll Fibromyalgia Numbness COPD Surgical History Surgery Date(Month/Year) Niraj cataract surgery 07/2021
== END 2024-08-07 12:55 | disposition home or self-care (01) ==
PROVIDERS: PCP Internal Medicine; Visit Provider Internal Medicine Cardiovascular Disease
DX: R06.02 Shortness of breath (principal); I05.0 Rheumatic mitral stenosis; Z95.2 Presence of prosthetic heart valve
CPT/HCPCS: 93010; 99214; G2211

== ENCOUNTER → 2024-08-07 12:09 | Outpatient (BNVA) | payer MEDICARE, OTHER, SELFPAY | PROVIDERS: PCP Internal Medicine; Visit Provider Internal Medicine Cardiovascular Disease | DX: I05.0 Rheumatic mitral stenosis (principal); R00.2 Palpitations; R06.02 Shortness of breath; F17.210 Nicotine dependence, cigarettes, uncomplicated; J44.9 Chronic obstructive pulmonary disease, unspecified; Z95.2 Presence of prosthetic heart valve; Z99.81 Dependence on supplemental oxygen | CPT/HCPCS: 93005; 99212 ==

== ENCOUNTER → 2024-08-21 12:52 | Outpatient (REF) | payer MEDICARE, OTHER, SELFPAY ==
--- NOTE | 2024-08-21 12:55 | CA_ITS ---
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 Normal LV ejection fraction of 60 65% with mild LVH with impaired relaxation filling pattern 2. Mildly dilated left atrium 3. Normally functioning bioprosthetic aortic valve with mean gradient of 10 mm Hg 4. Moderate to severe calcific mitral stenosis 5. Normal RV systolic pressure 6. No gross pericardial effusion Findings Left Ventricle Normal left ventricular size and systolic function. There is mildly increased left ventricular wall thickness. The visually estimated ejection fraction is between 60-65%. Spectral Doppler is indicative of an impaired relaxation filling pattern. Right Ventricle Normal right ventricular cavity size and systolic function. Atria The left atrium is mildly dilated. Interatrial shunt cannot be excluded. The right atrium is normal in size. Aortic Valve A bioprosthetic aortic valve is present. The prosthetic aortic valve appears to be functioning normally. The aortic valve was not well visualized. There is mild calcification of the aortic valve. There is no aortic valve stenosis. The peak aortic velocity is 2.19 m/s with a calculated peak gradient of 19 mmHg. The mean gradient is 10 mmHg. The aortic valve area is 1.79 cm2. There is no aortic valve regurgitation. Mitral Valve The mitral valve was not well visualized. There is moderate anterior and severe posterior mitral leaflet thickening. There is severe mitral annular calcification. There is no mitral valve regurgitation. There is moderate to severe mitral valve stenosis. Pulmonic Valve The pulmonic valve was not well visualized. Tricuspid Valve Likely normal tricuspid valve structure and function. There is mild tricuspid valve regurgitation. The right ventricular systolic pressure is normal. The right ventricular systolic pressure is 28 mmHg. Normal right atrial pressure. There is no evidence of pulmonary hypertension. Great Vessels All visible segments of the aorta are normal in size. The pulmonary artery was not well visualized. There is no dilatation of the ascending aorta measuring 3.00 cm. Venous The inferior vena cava is normal in size and collapses greater than 50% with inspiration. Pericardium/Pleural There is no evidence of pericardial effusion. Recommendations, Care & Conclusions Consider a RACHEL if clinically appropriate. Measurements 2D Linear Measurements IVSd: 1.32 0.6-0.9/0.6-1.0 cm LVIDd: 5.25 3.9-5.3/4.2-5.9 cm LVIDd Index: 2.49 2.4-3.2/2.2-3.1 cm/m2 LVIDs: 2.92 2.0-3.6 cm LVPWd: 1.35 0.7-1.1 cm Ao Root: 2.80 2.1-3.5 cm LA Diam: 4.80 2.7-3.8/3.0-4.0 cm LAIDs Index: 2.27 1.5-2.3 cm/m2 LV Mass: 366.17 67-162/88-224 g LV Mass Index: 173.54 43-95/49-115 g/m2 LVOT Diam: 2.10 3.0+(-)1.3 cm Mitral Valve MV VTI: 0.48 MV Pk Luis: 2.21 MV Mn Luis: 1.21 MV Pk Grad: 20.00 MV Mn Grad: 7.00 MV Pk E: 0.96 MV PK A: 0.21 E/A: 4.50 E'Lateral: 5.87 E'Medial: 5.22 E/E' Med: 18.30 E/E' Lat: 16.30 MVA Continuity: 1.60 Aortic Valve AoV Pk Luis: 2.19 AoV Mn Luis: 1.40 AoV VTI: 0.43 AoV Pk Grad: 19.00 Aov Mn Grad: 10.00 MODE Cont.VTI: 1.79 LVOT LVOT Pk Luis: 1.09 LVOT Mn Luis: 0.73 LVOT VTI: 0.22 LVOT Pk Grad: 5.00 LVOT Mn Grad: 2.00 LVOT Diam: 2.10 LVOT Area: 3.46 Diastolic Function MV Pk E: 0.96 MV Pk A: 0.21 E/A: 4.50 E'Medial: 5.22 E/E' Med: 18.30 E' Laterial: 5.87 E/E' Lat: 16.30 Right Ventricle TAPSE (mm): 30.00 TVS' Luis: 14.00 Tricuspid Valve TR Pk Luis: 2.49 TR Pk Grad: 25.00 RA Press: 3.00 RVSP: 28.00 Great Vessels Aorta Ao Root-2D: 2.80 2.0-3.7 cm Ao Asc: 3.00 2.1-3.4 cm Pulmonary Valve PV Pk Luis: 0.94 Peak PV Grad: 4.00 Updated in Other Vendor System with Status of Final Alberto Caceres MD electronically signed on 08/22/2024 4:15:21 PM with status of Final
== END ==
LOC: HO.CARD 12:52
PROVIDERS: PCP Internal Medicine; Visit Provider Internal Medicine Cardiovascular Disease
DX: I05.0 Rheumatic mitral stenosis (principal)
CPT/HCPCS: 93306

== ENCOUNTER → 2024-08-21 12:55 | Outpatient (BNV) | payer MEDICARE, OTHER, SELFPAY | PROVIDERS: PCP Internal Medicine; Visit Provider Internal Medicine Cardiovascular Disease | DX: I05.0 Rheumatic mitral stenosis (principal); Z95.3 Presence of xenogenic heart valve | CPT/HCPCS: 93306 ==

== ENCOUNTER 2024-09-11 10:46 | Outpatient (AMB) | payer MEDICARE, OTHER, SELFPAY ==
--- NOTE | 2024-09-11 11:00 | A.OFFVIS_ITS ---
Vital Signs 09/11/24 11:01 Height 5 ft 4 in Weight 245 lb 13.047 oz BMI 42.2 BP 130/48 L Blood Pressure Location Lt brachial Position Sitting Pulse 91 Pulse Source Pulse Oximeter Pulse Oximetry (%) 99 Oxygen Delivery Method Room Air Intake Visit Reasons: COPD Intake Note: pt is here for follow up and states she is using her oxygen every night on 2 liters. Vertical Punch Operator Required: No Allergies bee pollen [BEE STINGS] Allergy (Intermediate, Verified 09/11/24 11:41) SWELLING cyclobenzaprine [From Flexeril] Allergy (Mild, Verified 09/11/24 11:41) UNKNOWN Penicillins Allergy (Mild, Verified 09/11/24 11:41) UNKNOWN metformin [From GLUCOPHAGE] Allergy (Unknown, Verified 09/11/24 11:41) SEVER DIARRHEA Medication List - Last Reconciled 09/11/24 by Marcus Arreguin MD albuterol sulfate 90 mcg/actuation inhalation amitriptyline 100 mg PO BEDTIME aspirin (Adult Low Dose Aspirin) 81 mg PO DAILY atorvastatin 80 mg PO DAILY dulaglutide (Trulicity) 1.5 mg subcut QWEEK furosemide 40 mg PO Q OTHER DAY PRN glipizide ER (Glucotrol XL) 5 mg PO DAILY ibuprofen 800 mg PO TID insulin glargine 104 units subcut QPM insulin syringe-needle U-100 As directed losartan 25 mg PO DAILY Do you need a note to return to daycare/school/sports/work: No HPI HPI COPD: Details: MARYSE IS 79 YEARS OLD FEMALE WITH MORBID OBESITY. SHE IS ON GOING SMOKER OF 2 PACKS OF CIGARETTES A DAY. BECAUSE OF MORBID OBESITY SHE DOES OBSTRUCTIVE SLEEP APNEA AND NOCTURNAL HYPOXEMIA. SHE IS NOT KIND OF% WHO WILL USE CPAP BUT DOES USE OXYGEN 2 L/MINUTE AT NIGHT. SHE CLAIMS THAT SHE SLEEPS WELL, AND BENEFITS FROM THE USE OF OXYGEN. DURING THE DAYTIME SHE USES O2 IF SHE GETS INTO ANY SHORTNESS OF BREATH. SHE DOES HAVE ALBUTEROL HFA AT HOME FOR P.R.N. USE. SHE ALSO HAS ADVAIR HFA BUT USES IT ALSO ONLY P.R.N.. SHE CONTINUES TO SMOKE, AND IS NOT PREPARED TO QUIT SMOKING. SHE IS PAST THE AGE FOR ANNUAL LUNG SCREENING PROGRAM. HER LOCOMOTION IS IMPAIRED AND SHE WALKS IN THE HOUSE WITH WALKER. SHE IS MOSTLY HOME CONFINED AND DOES NOT GO OUTDOORS EXCEPT FOR OFFICE VISITS. SHE IS BEING TREATED FOR DIABETES MELLITUS, HYPERLIPIDEMIA, MILD HYPERTENSION, AND HAS HAD AORTIC VALVE REPLACEMENT IN THE PAST. [facility] Medical History Morbid obesity Vertigo Seizure Stroke Diabetes HTN (hypertension) Aortic stenosis Nocturnal hypoxemia SHANNON (obstructive sleep apnea) Smoker COPD (chronic obstructive pulmonary disease) Surgical History S/P TAVR (transcatheter aortic valve replacement) Retained myringotomy tube in left ear Family History Father No problems noted. Mother No problems noted. Social History Cigarette Packs Per Day: 2 Cigarettes Per Day: 40 Years Smoked: started at 27 years old Review of Systems Const All systems reviewed & are unremarkable except as noted in HPI and below Reports fatigue and Reports lethargy Eyes Reports no additional complaints ENT Reports no additional complaints Card Details: As noted above, she has tight aortic stenosis Resp Reports as per HPI GI Reports no additional complaints Reports no additional complaints Musc Reports abnormal gait (Patient ambulates only with a walker due to impaired mobility), Reports back pain, Reports myalgias and Reports arthralgias (Niece) Skin/Breast Reports system reviewed and no additional complaints, except as documented Neuro Reports abnormal gait (Patient ambulates only with a walker due to impaired mobility) Psych Reports no additional complaints Endo Reports fatigue Physical Exam Vital Signs: Last Vital Signs Pulse 91 09/11/24 11:01 BP 130/48 L 09/11/24 11:01 Pulse Ox 99 09/11/24 11:01 Oxygen Delivery Method Room Air 09/11/24 11:01 BMI result Body Mass Index 42.2 Const General: comfortable, no acute distress, alert and awake Orientation/consciousness: patient oriented x3 HEENT Other: Has a round face and very short and obese neck. Head: Yes normal to inspection General nose exam: No nasal polyps present and No nasal discharge present Face and sinus: Yes sinuses nontender Mouth: oropharynx abnormals (Very crowded oropharynx, Mallampati class 4) Throat: Yes posterior oropharynx normal Eyes General: appearance normal, both eyes and all related structures Neck Neck: Yes normal visual inspection, Yes no lymphadenopathy, Yes trachea midline and Yes no JVD Thyroid: Thyroid normal Chest Chest palpation & inspection: normal inspection of the chest, normal palpation of entire chest wall and no tenderness Resp Other: Percussion note not perceptible due to thick chest wall Breath sounds are extremely distant, with prolonged expiratory phase. No wheezes, crepitations or rhonchi are heard today. Cardio Palpation: normal PMI Rate: regular rate Rhythm: regular rhythm Heart sounds: no gallops and Murmur heart sound present (Loud systolic murmur present over left sternal border and the aortic area.) GI Palpation (GI): Soft to palpation, nontender, No hepatosplenomegaly present, no masses and Other GI palpation findings present (Abdomen is grossly obese and pendulous) Auscultation: normal bowel sounds Back/Spine/Pelvis Thoracic/Lumbar Spine: thoracic and lumbar spine normal to inspection, thoraco- lumbar ROM limited and thoraco-lumbar spasm Skin General skin exam: no rashes or lesions noted Neuro General: patient oriented x3, No gait normal (Gait is impaired patient ambulates with the walker, slowly) and no focal motor deficits Cranial nerves: Yes CN's II-XII intact bilaterally Extrem General: Yes normal to inspection, Yes no calf tenderness, Yes edema (Both legs are swollen 1 + no active infection or tenderness ) and Yes venous stasis dermatitis Psych Appearance: grossly normal and other (Slightly depressed, worried about her forthcoming cardiac procedure) Speech and movement: Normal speech and movement present Assessment & Plan Assessment & Plan (1) Smoker: Comment: STILL SMOKES , AND IS BACK TO 2 PACKS A DAY. COUNSELED TO QUIT SMOKING OR AT LEAST CUT DOWN THE NUMBER OF CIGARETTES, BUT SHE IS OF HER OWN MIND, AND DOES NOT HAVE ANY WILL POWER OR INTENTION TO QUIT SMOKING. SHE IS FULLY AWARE OF THE CONSEQUENCES AND RISKS INVOLVED IN CONTINUED SMOKING. Code(s): F17.200 - Nicotine dependence, unspecified, uncomplicated Category: Social Hx Plan: NO FURTHER ADVICE ARE ACTION (2) COPD (chronic obstructive pulmonary disease): Comment: COPD IS REMAINING VERY STABLE. Code(s): J44.9 - Chronic obstructive pulmonary disease, unspecified Category: Medical Plan: ADVISED TO CONT. ADVAIR HFA 230-21 2 PUFFS BID , BUT SHE LIKES TO USE IT ONLY P.R.N.. (3) SHANNON (obstructive sleep apnea): Comment: HAS NOT BEEN ABLE TO USE CPAP, SO SHE IS CONTENT WITH USING OXYGEN AT NIGHT. CONT. TO USE O2 2L/MT AT NIGHT . SHE IS VERY REGULAR IN USING THE O2 AT NIGHT AND SLEEPS WELL. Code(s): G47.33 - Obstructive sleep apnea (adult) (pediatric) Category: Medical Plan: CONTINUE TO USE O2 2 L/MINUTE AT NIGHT (4) Nocturnal hypoxemia: Comment: SHE HAS NOCTURNAL HYPOXEMIA DUE TO SLEEP-RELATED HYPOVENTILATION, ON TOP OF UNDERLYING COPD. Code(s): G47.34 - Idiopathic sleep related nonobstructive alveolar hypoventilation Category: Medical Plan: CONTINUE TO USE O2 2 L/MINUTE AT NIGHT Coding Level of Care Code Est Pt Level 3 (29074) Diagnoses Smoker F17.200 COPD (chronic obstructive pulmonary disease) J44.9 SHANNON (obstructive sleep apnea) G47.33 Nocturnal hypoxemia G47.34
[2024-09-11 11:01] VITALS: BP 130/48; PULSE 91; O2SAT 99; BMI 42.2
--- OUTSIDE RECORDS SUMMARY | 2024-09-11 13:13 | XMS_ITS | Patient Health Record ---
Author Organization [facility] Address [address] [place] [address] Care Team Providers Care Liquid Compounder Name Role Phone Lon Bishop MD Primary Care Provider Phyllis Abrams Unavailable [phone] Allergies Allergen (clinical drug ingredient) Drug/Non Drug [...] Problem Acquired hammer toe of right foot ([id number]) Other hammer toe(s) (acquired), right foot (M20.41) Active confirmed Problem Acquired hammer toe of left foot ([id number]) Other hammer toe(s) (acquired), left foot (M20.42) Active confirmed Problem Polyneuropathy due to diabetes mellitus type I (738278678) Type 1 diabetes mellitus with diabetic polyneuropathy (E10.42) Active confirmed Problem [id number] Hammertoe of lef t foot (M20.42) Active confirmed Problem 524169931 Hammertoe of right foot (M20.41) Active confirmed Problem [id number] Atherosclerosi s of artery of both lower extremities (I70.203) Active confirmed Plan Of Treatment Pending Test Test Name Order Date 50883-FADV SKIN LESIONS, 2 TO 4 09/18/19 20 [id number] DYSTROPHIC NAILS ANY # Insurance Providers Payer Name Payer Address Payer Phone Subscriber Number Group Number Insured Name Patient Relationship to Insured Coverage Start Date Coverage End Date Medicare National [employer] [address] [place] [phone] [id number] Silvia Watson Self - patient is the insured for Life [address] [place] [address] [id number] Silvia Watson Self - patient is the insured Medical (General) History Medical History History ICD Code Anxiety Back,Hip,and Knee pain Broken bones Diabetic type ll Fibromyalgia Numbness COPD Surgical History Surgery Date(Month/Year) Niraj cataract surgery 07/2021
== END 2024-09-11 11:29 | disposition home or self-care (01) ==
PROVIDERS: PCP Internal Medicine; Visit Provider Internal Medicine
DX: F17.200 Nicotine dependence, unspecified, uncomplicated (principal); J44.9 Chronic obstructive pulmonary disease, unspecified; G47.33 Obstructive sleep apnea (adult) (pediatric); G47.34 Idiopathic sleep related nonobstructive alveolar hypoventilation
CPT/HCPCS: 99213

== ENCOUNTER 2024-09-11 14:12 | Outpatient (REF) | payer MEDICARE, OTHER, SELFPAY ==
[2024-09-11 16:31] LABS: Prothrombin Time 11.1 SEC (10.9-12.4)
[2024-09-11 16:38] LABS: Anion Gap 14 (12-20); Blood Urea Nitrogen 10 mg/dL (9-16); Calcium 9.4 mg/dL (8.4-10.2); Carbon Dioxide 24 mmol/L (22-29); Chloride 108 mmol/L (96-108); Estimated Glomerular Filt Rate > 60; Glucose Random 73 mg/dL (60-115); Potassium 4.2 mmol/L (3.3-5.1); Sodium 142 mmol/L (135-145)
[2024-09-11 16:42] LABS: Hemoglobin 11.4 g/dl (12.0-16.0); Mean Corpuscular HGB Conc 31.7 g/dl (31.0-35.0); Mean Corpuscular Hemoglobin 28.6 pg (27.0-33.0); Mean Corpuscular Volume 90.2 fL (80.0-98.0); Mean Platelet Volume 9.8 fL (9.4-12.3); Platelet Count 253 X10*3/uL (160-400); Red Blood Count 3.99 X10*6/uL (4.20-5.50); Red Cell Distribution Width 13.1 % (11.0-16.0); White Blood Count 11.9 X10*3/uL (4.8-10.8)
== END 2024-09-11 14:13 | disposition home or self-care (01) ==
LOC: HO.HMGCLDS 14:12
PROVIDERS: PCP Internal Medicine; Visit Provider Internal Medicine Cardiovascular Disease
DX: I05.0 Rheumatic mitral stenosis (principal); J44.9 Chronic obstructive pulmonary disease, unspecified; F17.200 Nicotine dependence, unspecified, uncomplicated; G47.33 Obstructive sleep apnea (adult) (pediatric); G47.34 Idiopathic sleep related nonobstructive alveolar hypoventilation
CPT/HCPCS: 36415; 80048; 85027; 85610; 99212

== ENCOUNTER 2024-09-22 17:48 | Inpatient (IN) | payer MEDICARE, OTHER, SELFPAY ==
--- NOTE | ~2024-09-22 | CT_ITS ---
CLINICAL HISTORY: facial swelling CT soft tissue neck with contrast Comparison: None Findings: The visualized intracranial contents are unremarkable. Pharyngeal mucosal space, parapharyngeal fat, prevertebral tissues, and epiglottis are within normal limits. Enlargement and hyperemia of the right parotid gland with moderate surrounding fat stranding. Enlargement of the right submandibular gland which is hyperemic and demonstrates surrounding fat stranding. Fat stranding within the right parapharyngeal space. Moderate associated hypopharyngeal airway narrowing. No suspicious thyroid nodules. No evidence of pneumonia or edema. 7 mm nodule within the left upper lobe anterolaterally (image 74). No acute fracture or dislocation. IMPRESSION: 1. Right parotitis and right submandibular sialoadenitis. There is adjacent inflammation causing moderate airway narrowing. This document has been electronically signed by: Tess Chairez MD on 09/22/2024 20:19:29
[2024-09-22 17:59] VITALS: BP 134/106; PULSE 104; RESP 18; TEMP 37.1; O2SAT 96; BMI 41.2
--- NOTE | 2024-09-22 18:00 | ED.GENADULT ---
HPI - General Adult General Chief complaint: Allergic Reaction Stated complaint: Swelling in face Time Seen by Provider: 09/22/24 18:00 Source: patient Mode of arrival: ambulatory Limitations: no limitations History of Present Illness ED Provider: Juan A Strange DO HPI narrative: 79-year-old female with past medical history of TAVR on aspirin, mitral stenosis, hypertensive cardiomyopathy, insulin dependent diabetes, COPD not on oxygen (2 pack per day smoker), hypertension, sleep apnea who has allergies to bee stings and penicillin presents to the emergency department with due to acute onset right-sided facial swelling. Patient noticed it shortly prior to arrival while she was eating a chicken wrap from [employer]. She denies any rash or itching, wheezing, difficulty breathing, chest pain, abdominal pain, vomiting, diarrhea, or swelling of her lips or tongue. She denies difficulty breathing or swallowing or painful swallowing. She reports mild pain over the right sided external jaw. She does recall that she noticed a small amount of pain of the right face yesterday but the swelling started acutely today. She denies fevers or chills or any additional symptoms. She wears dentures both upper and lower. On re-evaluation the patient recalls having the sensation of difficulty swallowing after eating yesterday and called EMS but after they evaluated her she stated she did not want to report to the emergency department. Related Data Home Medications ?Medication ?Instructions ?Recorded ?Confirmed albuterol sulfate 90 mcg/actuation inhalation 05/29/20 08/07/24 aerosol inhaler ibuprofen 800 mg tablet 800 mg PO TID 05/29/20 08/08/23 insulin syringe-needle U-100 0.5 #10 ea 05/29/20 04/05/23 mL 31 gauge x 16 amitriptyline 100 mg tablet 100 mg PO BEDTIME 09/30/20 08/07/24 insulin glargine 100 unit/mL 104 unit subcut QPM 09/30/20 08/07/24 subcutaneous solution aspirin 81 mg tablet,delayed 81 mg PO DAILY 11/16/21 08/07/24 release (Adult Low Dose Aspirin) furosemide 40 mg tablet 40 mg PO Q OTHER DAY PRN 11/16/21 08/07/24 dulaglutide 1.5 mg/0.5 mL 1.5 mg subcut QWEEK 11/14/22 01/28/25 subcutaneous pen injector (Trulicity) atorvastatin 80 mg tablet 80 mg PO DAILY 08/08/23 08/07/24 glipizide 5 mg tablet, extended 5 mg PO DAILY 08/07/24 08/07/24 release 24 hr (Glucotrol XL) losartan 25 mg tablet 25 mg PO DAILY 08/07/24 08/07/24 Allergies Allergy/AdvReac Type Severity Reaction Status Date / Time bee pollen [BEE STINGS] Allergy Intermediate SWELLING Verified 09/22/24 18:01 cyclobenzaprine Allergy Mild UNKNOWN Verified 09/22/24 18:01 [From Flexeril] Penicillins Allergy Mild UNKNOWN Verified 09/22/24 18:01 metformin [From GLUCOPHAGE] Allergy Unknown SEVER Verified 09/22/24 18:01 DIARRHEA Review of Systems Review of Systems: Yes all other systems are reviewed and are negative [facility] Past Medical History Medical History Morbid obesity Vertigo Seizure Stroke Diabetes HTN (hypertension) Aortic stenosis Nocturnal hypoxemia SHANNON (obstructive sleep apnea) Smoker COPD (chronic obstructive pulmonary disease) Surgical History S/P TAVR (transcatheter aortic valve replacement) Retained myringotomy tube in left ear Family History Family History Father No problems noted. Mother No problems noted. Social History Social History Cigarette Packs Per Day: 2 Cigarettes Per Day: 40 Years Smoked: started at 27 years old Advance Directives: No Advance Directives Information Provided: No Physical Exam ED Vital Signs: Vital Signs - 24 hr 09/22/24 17:59 Temperature 98.8 F Pulse Rate 104 H Respiratory Rate 18 Blood Pressure 134/106 H Pulse Oximetry 96 Oxygen Delivery Method Room Air BMI result Body Mass Index 41.2 Constitutional: Alert, oriented, speaking in full sentences HEENT: Normocephalic, atraumatic. Moist mucous membranes , no edema of the lips, tongue, uvula or palate. No tenderness intraorally. No elevation of the tongue. No induration, erythema or tenderness of the submental or submandibular regions. The patient does have painless edema located solely over the right-sided jaw which is visible from the door. There is a small amount of tenderness located at the mandible of the jaw. There is no obvious clicking or dislocation of the jaw. No overlying skin changes externally. Eyes: PERRL, EOMI Neck: Supple, nontender Chest: No chest wall tenderness Respiratory: Lungs clear to auscultation, no increased work of breathing Cardio: Tachycardic rate, regular rhythm, no murmur, 2+ radial and DP pulses symmetrically GI: Soft, nondistended, nontender Back: Normal range of motion, nontender Skin: No rash, no lesions Neuro: Alert and oriented to person, place and time, moves all 4 extremities, no focal deficits Extremities: No swelling or tenderness, full range of motion Psych: Calm, alert and cooperative, appropriate behavior Medications Administered Discontinued Medications Generic Name Dose Route Start Last Admin Trade Name Freq PRN Reason Stop Dose Admin Iohexol 100 ml 09/22/24 19:21 09/22/24 19:26 Iohexol 350 Mg/Ml 100 Ml Infus..Btl IV 09/22/24 19:22 75 ml ONCE ONE Administration Medical Decision Making Medical Decision Making MDM Narrative: Patient presenting with an acute onset right-sided facial swelling with minimal pain. She has no signs of anaphylaxis or angioedema clinically. There are no signs of infection on intraoral exam. The patient does have mild tachycardia here. Possible differential diagnosis includes lymphadenopathy secondary to unknown illness, parotitis, salivary stone infection, less likely deep space infection but we will further evaluate with labs and CT imaging. Labs reviewed and show a mild hyperglycemia at 164, otherwise unremarkable chemistry, mild neutrophilic predominant leukocytosis of 12.9 with 80% neutrophils, mild baseline anemia with a hemoglobin of 11.7, no other acute abnormalities of CBC. CT imaging of the soft tissue neck shows right-sided parotitis and right submandibular sialoadenitis with adjacent inflammation causing moderate airway narrowing. On repeat evaluation the patient has no stridor, no muffled voice, and is breathing comfortably. She is phonating well. Case has been discussed with hospitalist who agrees with plan to place to place an on antibiotics. Because she has a known allergy to penicillins as an adult, ordered for 600 mg of IV clindamycin as well as blood cultures and lactic acid. Hospitalist also advises dexamethasone. Although the patient is a diabetic, with tight glucose management, I think she would benefit from a steroid to decrease inflammation and 6 mg of dexamethasone has been ordered. Hospitalist also requests review by ears Nose and Throat physician to determine if the patient is CT imaging findings necessitate transfer to their service. Discussed plan with the patient. Provided nicotine patch due to her request to smoke a cigarette. Case has been reviewed with otolaryngology at [facility], specifically discussing CT image findings and patient's clinical condition and comorbidities. They do not recommend any surgical interventions or services requiring ENT at this time and do recommend continuation of medical management. Discussed again with hospitalist who agrees with plan and the patient will be admitted for further care. Admission/Observation Consideration of admission/observation: Escalation of care including admission/observation considered Consult Healthcare Provider Management of the patient was discussed with: Hospitalist and Prestressed Concrete Laborer (ent) Lab Data MDM Lab Attestation statement: I reviewed the patient's lab results. 09/22/24 18:24 09/22/24 18:24 Labs: Lab Results 09/22/24 Range/Units 18:24 WBC 12.9 H (4.8-10.8) X10*3/uL RBC 4.03 L (4.20-5.50) X10*6/uL Hgb 11.7 L (12.0-16.0) g/dl Hct 35.4 L (37.0-47.0) % MCV 87.8 (80.0-98.0) fL MCH 29.0 (27.0-33.0) pg MCHC 33.1 (31.0-35.0) g/dl RDW 13.0 (11.0-16.0) % Plt Count 234 (160-400) X10*3/uL MPV 8.8 L (9.4-12.3) fL Immature Gran % (Auto) 0.3 (0.0-0.4) % Neut % (Auto) 80.2 H (45-73) % Lymph % (Auto) 13.0 L (20-40) % Park % (Auto) 4.8 (2-11) % Eos % (Auto) 1.2 (0-4) % Baso % (Auto) 0.5 (0-2) % Lymph # (Auto) 1.7 (1.2-4.9) X10*3/uL Park # (Auto) 0.6 (0.1-1.2) X10*3/uL Eos # (Auto) 0.2 (0.0-0.4) X10*3/uL Baso # (Auto) 0.1 (0.0-0.2) X10*3/uL Abs Immat Gran (auto) 0.04 H (0.00-0.03) X10*3/uL Absolute Neuts (auto) 10.3 H (2.0-8.3) x10*3/uL Absolute Nucleated RBC 0.000 (0.0-0.012) X10*3/uL Nucleated RBC % (auto) 0.0 (0.0-0.2) /100WBC Sodium 141 (135-145) mmol/L Potassium 4.0 (3.3-5.1) mmol/L Chloride 107 (96-108) mmol/L Carbon Dioxide 24 (22-29) mmol/L Anion Gap 14 (12-20) BUN 15 (9-16) mg/dL Creatinine 0.88 (0.5-1.4) mg/dL Estim Creat Clear Calc 62.5 Estimated GFR > 60 Random Glucose 164 H (60-115) mg/dL Calcium 8.9 (8.4-10.2) mg/dL Critical Care Time Critical Care Time Critical Care Time: Yes Total Critical Care Time: 40 Attestation: Performed by myself Juan A Strange D.O. Patient required immediate attention due to the extent of facial swelling and comorbidities. Due to the extent of swelling, risk for airway compromise was assessed, patient re-evaluated multiple times and interventions included IV antibiotics and steroids Case has been reviewed with hospitalist as well as Otolaryngology at [facility] Discharge Plan Discharge Prescriptions: No Action ibuprofen 800 mg tablet 800 mg PO TID (DME) insulin syringe-needle U-100 0.5 mL 31 gauge x 5/16 syringe See Rx Instructions .ROUTE .MEDSUPPLY Qty: 10 Rx Instructions: As directed albuterol sulfate 90 mcg/actuation HFA aerosol inhaler inhalation amitriptyline 100 mg tablet 100 mg PO BEDTIME insulin glargine 100 unit/mL solution 104 unit subcut QPM furosemide 40 mg tablet 40 mg PO Q OTHER DAY PRN aspirin [Adult Low Dose Aspirin] 81 mg tablet,delayed release (DR/EC) 81 mg PO DAILY Trulicity 1.5 mg/0.5 mL pen injector 1.5 mg subcut QWEEK atorvastatin 80 mg tablet 80 mg PO DAILY glipizide [Glucotrol XL] 5 mg tablet extended release 24hr 5 mg PO DAILY losartan 25 mg tablet 25 mg PO DAILY Print Language: Canadian
[2024-09-22 18:29] LABS: Basophils Absolute Auto 0.1 X10*3/uL (0.0-0.2); Basophils Percent Auto 0.5 % (0-2); Eosinophils Absolute Auto 0.2 X10*3/uL (0.0-0.4); Eosinophils Percent Auto 1.2 % (0-4); Hematocrit 35.4 % (37.0-47.0); Hemoglobin 11.7 g/dl (12.0-16.0); Imm Gran Abs Auto 0.04 X10*3/uL (0.00-0.03); Imm Gran Pct Auto 0.3 % (0.0-0.4); Lymphocytes Absolute Auto 1.7 X10*3/uL (1.2-4.9); MANUAL DIFF FLAG NO; Mean Corpuscular HGB Conc 33.1 g/dl (31.0-35.0); Mean Corpuscular Volume 87.8 fL (80.0-98.0); Mean Platelet Volume 8.8 fL (9.4-12.3); Monocytes Absolute Auto 0.6 X10*3/uL (0.1-1.2); Monocytes Percent Auto 4.8 % (2-11); Neutrophils Absolute Auto 10.3 x10*3/uL (2.0-8.3); Neutrophils Percent Auto 80.2 % (45-73); Platelet Count 234 X10*3/uL (160-400); Red Blood Count 4.03 X10*6/uL (4.20-5.50); White Blood Count 12.9 X10*3/uL (4.8-10.8)
[2024-09-22 18:42] LABS: Anion Gap 14 (12-20); Blood Urea Nitrogen 15 mg/dL (9-16); Calcium 8.9 mg/dL (8.4-10.2); Carbon Dioxide 24 mmol/L (22-29); Chloride 107 mmol/L (96-108); Creatinine Clr Calc Pharmacy 62.5; Estimated Glomerular Filt Rate > 60; Glucose Random 164 mg/dL (60-115); Sodium 141 mmol/L (135-145)
--- NOTE | 2024-09-22 19:20 | PC.NURSE ---
Pt a&ox4, no signs of distress Pt denies pain at this time Pt ambulates with slow steady gait using walker Pt with CT Plan of care ongoing.
[2024-09-22] MEDS: iohexoL 350 MG/ML 100 ML INFUS..BTL IV (19:26)
[2024-09-22] MEDS: dexAMETHasone sod phosphate 4 MG/ML VIAL 6 MG IVPUSH (21:11)
[2024-09-22] MEDS: Clindamycin Phosphate/D5W 600 MG/50 ML PIGGYBACK 100 MG IV (21:11)
[2024-09-22] MEDS: Nicotine 21 MG PATCH.TD24 TRANSDERMA (21:11)
--- NOTE | 2024-09-22 21:25 | PC.NURSE ---
Pt medicated per mar Plan of care ongoing Pt repeatedly redirected regarding IV. Pt continues to stand and walk away from IV. Pt educated on the importance of not walking away from the IV and staying in the bed. Plan of care ongoing.
[2024-09-22] MEDS: Enoxaparin Sodium 40 MG/0.4 ML SYRINGE SUBCUT (21:57)
[2024-09-22 22:02] LABS: Appearance Urine Clear; Color Urine Yellow; Glucose Urine UA Negative (Negative); Leukocyte Esterase Urine Negative (Negative); Nitrite Urine Negative (Negative); PH 5.5 (5.0-9.0); Specific Gravity - Urine >= 1.030 (1.005-1.025); Urine Blood Negative (Negative); Urine Ketones Negative (Negative); Urine Protein Negative (Neg-Trace)
--- NOTE | 2024-09-22 22:09 | P.HPHOSP_ITS ---
History of Present Illness Date of Service: 09/22/24 Chief Complaint: Right facial swelling 79-year-old female with past medical history of HTN, HLD, obesity, SHANNON, COPD, cardiomyopathy, aortic stenosis status post TAVR, mitral stenosis; presented to the hospital today with a chief complaint of right facial swelling. Patient reports that on Tuesday she had brief episode of difficulty swallowing which resolved quickly. Today when she was having DNR at the [employer] she suddenly felt swelling in her right side of the face, no hives or erythema. No itching. Subsequently came to the ER for further evaluation. Patient denied any difficulty breathing. Denies any chest pain or palpitations. Denies any shortness of breath dyspnea on exertion. Denies any fever chills cough or sputum production. Denies any difficulty swallowing. Patient reported that her swelling significantly improving by the time of my interview. Review of all other systems is negative except mentioned above ER course: Per ER team, patient noted to have right facial swelling around the parotid glands; CT scan showed right parotitis and submandibular cellulitis tinnitus, moderate narrowing of the airway due to inflammation. Discussed with the ENT physician of the [facility] who reviewed the images and mentioned no need for transfer, can be medically managed. Patient was given clindamycin and dexamethasone. [facility] Medical History Morbid obesity Vertigo Seizure Stroke Diabetes HTN (hypertension) Aortic stenosis Nocturnal hypoxemia SHANNON (obstructive sleep apnea) Smoker COPD (chronic obstructive pulmonary disease) Family History Father No problems noted. Mother No problems noted. Surgical History S/P TAVR (transcatheter aortic valve replacement) Retained myringotomy tube in left ear Social History Cigarette Packs Per Day: 2 Cigarettes Per Day: 40 Years Smoked: started at 27 years old Smoked in Last 30 Days: Yes Use of substances other than those prescribed or required for medical reasons: No Advance Directives: No Advance Directives Information Provided: No Meds Allergies Allergy/AdvReac Type Severity Reaction Status Date / Time bee pollen [BEE STINGS] Allergy Intermediate SWELLING Verified 09/22/24 18:01 cyclobenzaprine Allergy Mild UNKNOWN Verified 09/22/24 18:01 [From Flexeril] Penicillins Allergy Mild UNKNOWN Verified 09/22/24 18:01 metformin [From GLUCOPHAGE] Allergy Unknown SEVER Verified 09/22/24 18:01 DIARRHEA Active Medications: Current Medications Acetaminophen (Acetaminophen 325 Mg Tablet) 650 mg PO Q6H PRN PRN Reason: Pain, Mild 1-3,fever,headache Calcium Carbonate (Calcium Carbonate 750 Mg Tab.Chew) 750 mg PO Q4H PRN PRN Reason: Heartburn Dextrose (Dextrose 50 % 25 Gm/50 Ml Syringe) 25 gm IVPUSH Q15M PRN; Protocol PRN Reason: per Hypoglycemia Standing Ord. Enoxaparin Sodium (Enoxaparin Sodium 40 Mg/0.4 Ml Syringe) 40 mg SUBCUT Q24H [facility] Last Admin: 09/22/24 21:57 Dose: 40 mg Glucose (Glucose Gel 15 Gm Gel..Gram.) 15 gm PO Q15M PRN; Protocol PRN Reason: per Hypoglycemia Standing Ord. Insulin Glargine (Insulin Glargine,Hum.Rec.Anlog 100 Unit/Ml 10 Ml Vial) 20 unit SUBCUT BID DEBBIE Insulin Human Lispro (Insulin Lispro 100 Unit/Ml 3 Ml Vial) 0 unit SUBCUT QIDACHS [facility]; Protocol Magnesium Hydroxide (Milk Of Magnesia 30 Ml Oral.Susp) 30 ml PO DAILY PRN PRN Reason: Constipation Melatonin (Melatonin 3 Mg Tablet) 6 mg PO BEDTIME PRN PRN Reason: Insomnia Sodium Chloride (0.9 % Sodium Chloride Flush 3 Ml Syringe) 3 ml IVFLUSH QSHIFT [facility] Home Medications ?Medication ?Instructions ?Recorded ?Confirmed ?Last Taken ?Type albuterol sulfate 90 mcg/actuation inhalation 05/29/20 08/07/24 Unknown History aerosol inhaler ibuprofen 800 mg tablet 800 mg PO TID 05/29/20 08/08/23 Unknown History insulin syringe-needle U-100 0.5 #10 ea 05/29/20 04/05/23 Unknown History mL 31 gauge x 16 amitriptyline 100 mg tablet 100 mg PO BEDTIME 09/30/20 08/07/24 Unknown History insulin glargine 100 unit/mL 104 unit subcut QPM 09/30/20 08/07/24 Unknown History subcutaneous solution aspirin 81 mg tablet,delayed 81 mg PO DAILY 11/16/21 08/07/24 Unknown History release (Adult Low Dose Aspirin) furosemide 40 mg tablet 40 mg PO Q OTHER DAY PRN 11/16/21 08/07/24 Unknown History dulaglutide 1.5 mg/0.5 mL 1.5 mg subcut QWEEK 05/24/22 08/07/24 Unknown History subcutaneous pen injector (Trulicity) atorvastatin 80 mg tablet 80 mg PO DAILY 08/08/23 08/07/24 Unknown History glipizide 5 mg tablet, extended 5 mg PO DAILY 08/07/24 08/07/24 Unknown History release 24 hr (Glucotrol XL) losartan 25 mg tablet 25 mg PO DAILY 08/07/24 08/07/24 Unknown History Physical Exam 2 Vital Signs and Narrative: Vital Signs: Last Vital Signs Temp 98.8 F 09/22/24 17:59 Pulse 104 H 09/22/24 17:59 Resp 18 09/22/24 17:59 BP 134/106 H 09/22/24 17:59 Pulse Ox 96 09/22/24 17:59 O2 Del Method Room Air 09/22/24 17:59 BMI result Body Mass Index 41.2 Gen: Appears be in no acute distress HEENT: NCAT, Moist mucosa. Right facial swelling improving, no erythema noted. Has mild submandibular fullness; breathing comfortably. No stridor. Pulmonary: Vesicular breath sounds, fair air entry CVS: Normal S1-S2 Abdomen: BS+, Soft, Nontender Extremities: Warm well perfused Neuro: Alert and awake. Results Labs 09/22/24 18:24 09/22/24 18:24 Labs: Laboratory Results - last 24 hr 09/22/24 09/22/24 09/22/24 18:24 21:20 21:49 MCV 87.8 MCH 29.0 MCHC 33.1 RDW 13.0 Plt Count 234 MPV 8.8 L Immature Gran % (Auto) 0.3 Neut % (Auto) 80.2 H Lymph % (Auto) 13.0 L [place] % (Auto) 4.8 Eos % (Auto) 1.2 Baso % (Auto) 0.5 Lymph # (Auto) 1.7 [place] # (Auto) 0.6 Eos # (Auto) 0.2 Baso # (Auto) 0.1 Abs Immat Gran (auto) 0.04 H Absolute Neuts (auto) 10.3 H Absolute Nucleated RBC 0.000 Nucleated RBC % (auto) 0.0 Anion Gap 14 Estim Creat Clear Calc 62.5 Estimated GFR > 60 Random Glucose 164 H Lactic Acid 1.0 Calcium 8.9 Urine Color Yellow Urine Appearance Clear Urine pH 5.5 Ur Specific [place] >= 1.030 H Urine Protein Negative Urine Glucose (UA) Negative Urine Ketones Negative Urine Blood Negative Urine Nitrite Negative Ur Leukocyte Esterase Negative Assessment and Plan (1) Acute parotitis: Status: Acute Plan 79-year-old female with past medical history of HTN, HLD, obesity, SHANNON, COPD, cardiomyopathy, aortic stenosis status post TAVR, mitral stenosis; presented to the hospital today with a chief complaint of right facial swelling. Noted to have acute peritonitis/sialadenitis. Acute right parotitis: Acute submandibular sialadenitis: Narrowing of the airway due to inflammation: Patient has no stridor. Breathing comfortably. Speaking in full sentences. Denies any odynophagia or dysphagia. Empirically covered with clindamycin. Will also continue dexamethasone to reduce inflammation. ENT at [facility] reviewed the images and mentioned the need for emergency transfer or any further intervention. HX TAVR/mitral stenosis: Patient reports that she is due for repeat cardiac catheterization by her solar crew member to schedule in the next few weeks. Diabetes: Will hold home regimen. Lantus 20 units b.i.d. plus sliding scale. Monitor POC glucoses and adjust accordingly. Hypertension: Continue home medication DVT prophylaxis: Lovenox Code status: Full code Quality Stroke Does the patient have a stroke diagnosis?: No VTE Prior VTE?: No VTE Risk Level:: Medical - moderate - high VTE Device Contraindication: Treatment Not Indicated VTE Drug Contraindication: N/A - Med Ordered
[2024-09-22 22:21] LABS: Glucose, Whole Blood 143 mg/dL (60-115)
--- NOTE | 2024-09-22 22:26 | PC.NURSE ---
Pt educated on importance of changing into hospital attire Pt agreed and changed into hospital gown Plan of care ongoing.
--- NOTE | 2024-09-22 22:28 | PC.NURSE ---
This RN attempted to complete med rec with patient. Patient unsure about all medications and doses. Pt reports her pharmacy is a [facility] in [facility] and is not currently open. Plan of care ongoing.
[2024-09-23 00:16] VITALS: BP 145/61; PULSE 90; RESP 18; TEMP 36.6; O2SAT 96
[2024-09-23 00:41] VITALS: BMI 41.2
[2024-09-23 01:44] LABS: Glucose, Whole Blood 202 mg/dL (60-115)
[2024-09-23 03:28] VITALS: BP 140/63; PULSE 92; RESP 18; TEMP 36.3; O2SAT 93
[2024-09-23 06:12] LABS: Basophils Percent Auto 0.2 % (0-2); Hematocrit 33.2 % (37.0-47.0); Hemoglobin 11.2 g/dl (12.0-16.0); Imm Gran Abs Auto 0.05 X10*3/uL (0.00-0.03); Imm Gran Pct Auto 0.5 % (0.0-0.4); Lymphocytes Absolute Auto 0.6 X10*3/uL (1.2-4.9); Lymphocytes Percent Auto 5.9 % (20-40); MANUAL DIFF FLAG SCAN; Mean Corpuscular HGB Conc 33.7 g/dl (31.0-35.0); Mean Platelet Volume 9.2 fL (9.4-12.3); Monocytes Absolute Auto 0.1 X10*3/uL (0.1-1.2); Monocytes Percent Auto 0.5 % (2-11); Neutrophils Absolute Auto 9.7 x10*3/uL (2.0-8.3); Neutrophils Percent Auto 92.9 % (45-73); Platelet Count 218 X10*3/uL (160-400); Red Blood Count 3.86 X10*6/uL (4.20-5.50); Red Cell Distribution Width 12.8 % (11.0-16.0); SCAN SMEAR FLAG 1; White Blood Count 10.5 X10*3/uL (4.8-10.8)
[2024-09-23 06:27] LABS: Anion Gap 14 (12-20); Blood Urea Nitrogen 15 mg/dL (9-16); Calcium 8.9 mg/dL (8.4-10.2); Carbon Dioxide 22 mmol/L (22-29); Chloride 106 mmol/L (96-108); Creatinine Clr Calc Pharmacy 67.9; Estimated Glomerular Filt Rate > 60; Glucose Random 286 mg/dL (60-115); Potassium 4.2 mmol/L (3.3-5.1); Sodium 138 mmol/L (135-145)
[2024-09-23 07:17] LABS: SLIDE REVIEW VERIFIED
[2024-09-23 07:48] VITALS: BP 145/89; PULSE 99; RESP 16; TEMP 36.1; O2SAT 94
--- NOTE | 2024-09-23 07:55 | P.PNIM_ITS ---
Subjective Subjective Date of Service: 09/23/24 Interval History: f/u on acute parotitis Physical Exam 2 Vital Signs: Vital Signs: Last Vital Signs Temp 97.0 F 09/23/24 07:48 Pulse 99 09/23/24 07:48 Resp 16 09/23/24 07:48 BP 145/89 H 09/23/24 07:48 Pulse Ox 94 09/23/24 07:48 O2 Del Method Nasal Cannula 09/23/24 07:48 O2 Flow Rate 1 09/23/24 07:48 BMI result Body Mass Index 41.2 Const: Other: General: AO X 3, no acute distress Resp: CTA bilateral CVS: S1,S2,RRR GI: +BS, NT, no distention Skin: No rash Neuro: motor grossly intact Psych: appropriate affect Objective Data Active Medications Acetaminophen (Acetaminophen 325 Mg Tablet) 650 mg PO Q6H PRN PRN Reason: Pain, Mild 1-3,fever,headache Calcium Carbonate (Calcium Carbonate 750 Mg Tab.Chew) 750 mg PO Q4H PRN PRN Reason: Heartburn Dextrose (Dextrose 50 % 25 Gm/50 Ml Syringe) 25 gm IVPUSH Q15M PRN; Protocol PRN Reason: per Hypoglycemia Standing Ord. Enoxaparin Sodium (Enoxaparin Sodium 40 Mg/0.4 Ml Syringe) 40 mg SUBCUT Q24H [facility] Last Admin: 09/22/24 21:57 Dose: 40 mg Documented By: SURINDER Glucose (Glucose Gel 15 Gm Gel..Gram.) 15 gm PO Q15M PRN; Protocol PRN Reason: per Hypoglycemia Standing Ord. Insulin Glargine (Insulin Glargine,Hum.Rec.Anlog 100 Unit/Ml 10 Ml Vial) 20 unit SUBCUT BID [facility] Insulin Human Lispro (Insulin Lispro 100 Unit/Ml 3 Ml Vial) 0 unit SUBCUT QIDACHS [facility]; Protocol Magnesium Hydroxide (Milk Of Magnesia 30 Ml Oral.Susp) 30 ml PO DAILY PRN PRN Reason: Constipation Melatonin (Melatonin 3 Mg Tablet) 6 mg PO BEDTIME PRN PRN Reason: Insomnia Sodium Chloride (0.9 % Sodium Chloride Flush 3 Ml Syringe) 3 ml IVFLUSH QSHIFT [facility] Last Admin: 09/23/24 03:18 Dose: Not Given Documented By: LAUREN Non-Admin Reason: Previously Administered Labs 09/23/24 05:49 03/16/25 05:49 Labs: Laboratory Results - last 24 hr 09/22/24 09/22/24 09/22/24 18:24 21:20 21:49 MCV 87.8 MCH 29.0 MCHC 33.1 RDW 13.0 Plt Count 234 MPV 8.8 L Immature Gran % (Auto) 0.3 Neut % (Auto) 80.2 H Lymph % (Auto) 13.0 L [place] % (Auto) 4.8 Eos % (Auto) 1.2 Baso % (Auto) 0.5 Lymph # (Auto) 1.7 [place] # (Auto) 0.6 Eos # (Auto) 0.2 Baso # (Auto) 0.1 Abs Immat Gran (auto) 0.04 H Absolute Neuts (auto) 10.3 H Absolute Nucleated RBC 0.000 Nucleated RBC % (auto) 0.0 Smear Tech's Comments Anion Gap 14 Estim Creat Clear Calc 62.5 Estimated GFR > 60 POC Glucose Random Glucose 164 H Lactic Acid 1.0 Calcium 8.9 Urine Color Yellow Urine Appearance Clear Urine pH 5.5 Ur Specific [place] >= 1.030 H Urine Protein Negative Urine Glucose (UA) Negative Urine Ketones Negative Urine Blood Negative Urine Nitrite Negative Ur Leukocyte Esterase Negative 09/22/24 09/23/24 09/23/24 22:16 01:39 05:49 MCV 86.0 MCH 29.0 MCHC 33.7 RDW 12.8 Plt Count 218 MPV 9.2 L Immature Gran % (Auto) 0.5 H Neut % (Auto) 92.9 H Lymph % (Auto) 5.9 L [place] % (Auto) 0.5 L Eos % (Auto) 0.0 Baso % (Auto) 0.2 Lymph # (Auto) 0.6 L [place] # (Auto) 0.1 Eos # (Auto) 0.0 Baso # (Auto) 0.0 Abs Immat Gran (auto) 0.05 H Absolute Neuts (auto) 9.7 H Absolute Nucleated RBC 0.000 Nucleated RBC % (auto) 0.0 Smear Tech's Comments VERIFIED Anion Gap 14 Estim Creat Clear Calc 67.9 Estimated GFR > 60 POC Glucose 143 H 202 H Random Glucose 286 H Lactic Acid Calcium 8.9 Urine Color Urine Appearance Urine pH Ur Specific [place] Urine Protein Urine Glucose (UA) Urine Ketones Urine Blood Urine Nitrite Ur Leukocyte Esterase Assessment and Plan (1) Acute sialoadenitis: Status: Acute (2) Acute parotitis: Status: Acute (3) HTN (hypertension): Status: Acute (4) S/P TAVR (transcatheter aortic valve replacement): Status: Acute Plan 79-year-old female with past medical history of HTN, HLD, obesity, SHANNON, COPD, cardiomyopathy, aortic stenosis status post TAVR, mitral stenosis; presented to the hospital today with a chief complaint of right facial swelling. Noted to have acute peritonitis/sialadenitis. Acute right parotitis: Acute submandibular sialadenitis: Narrowing of the airway due to inflammation: Patient has no stridor. Breathing comfortably. Speaking in full sentences. Denies any odynophagia or dysphagia. Empirically covered with clindamycin. Will also continue dexamethasone to reduce inflammation. ENT at [facility] reviewed the images and mentioned no need for emergency transfer or any further intervention. HX TAVR/mitral stenosis: Patient reports that she is due for repeat cardiac catheterization by her waterway traffic checker to schedule in the next few weeks. Diabetes: Lantus 20 units b.i.d. plus sliding scale. Monitor POC glucoses and adjust accordingly. Hypertension: Continue home medication DVT prophylaxis: Lovenox Code status: Full code Quality Stroke Does the patient have a stroke diagnosis?: No VTE Prior VTE?: No VTE Risk Level:: Medical - moderate - high VTE Device Contraindication: Treatment Not Indicated VTE Drug Contraindication: N/A - Med Ordered
[2024-09-23 08:01] LABS: Glucose, Whole Blood 279 mg/dL (60-115)
[2024-09-23] MEDS: Insulin Glargine,Hum.rec.anlog 100 UNIT/ML 10 ML VIAL 20 UNIT SUBCUT (08:28)
[2024-09-23] MEDS: Insulin Lispro 100 UNIT/ML 3 ML VIAL SUBCUT ×2 (08:29→12:01)
[2024-09-23] MEDS: 0.9 % Sodium Chloride Flush 3 ML SYRINGE IVFLUSH (08:32)
--- NOTE | 2024-09-23 09:33 | PHA.MEDREC ---
Pharmacy Consult ? Medication Reconciliation Pharmacy has completed the medication reconciliation. Spoke with patient at bedside, pt was a poor historian, unable to to recall medications names on own, until prompted by [facility]. Pt is on ADvair 230-21, but pt is non-complaint and dose not take this daily. Pharmacy claims startims pt shoudl take 2 tbales of 100mg amitriptyline daily, however pt only takes 1 tablet daily at bedtime. Spoke with Johann, pt's , over phone, who had a list and could confirm medications and dosages. Johann confirmed Lantus 50mg in AM and PM, and amitriptyline once at bedtime.
--- NOTE | 2024-09-23 09:46 | P.DS_ITS ---
DS: Providers Provider Date of Service: 09/23/24 Date of admission: 09/22/24 21:26 Date of discharge: 09/23/24 Primary care physician: Lon Bishop MD DS: Diagnosis Discharge Diagnosis (1) Acute sialoadenitis: Status: Acute (2) Acute parotitis: Status: Acute (3) HTN (hypertension): Status: Acute (4) S/P TAVR (transcatheter aortic valve replacement): Status: Acute DS: Summary Hospital Course Hospital Course: Chief Complaint: Right facial swelling 79-year-old female with a past medical history of HTN, HLD, obesity, SHANNON, COPD, cardiomyopathy, aortic stenosis status post TAVR, and mitral stenosis presented to the hospital today with a chief complaint of right facial swelling. Patient r eports that on Tuesday, she had a brief episode of difficulty swallowing, which resolved quickly. Today, while having dinner at [employer], she suddenly felt swelling on the right side of her face, with no hives, erythema, or itching. She subsequently came to the ER for further evaluation. Patient denied any difficulty breathing, chest pain, palpitations, shortness of breath, or dyspnea on exertion. She also denied fever, chills, cough, sputum production, or difficulty swallowing. By the time of my interview, she reported that the swelling had significantly improved. Review of systems: Negative except as mentioned above. ER Course: Per the ER team, the patient was noted to have right facial swelling around the parotid glands. A CT scan showed right parotitis and submandibular cellulitis, with moderate narrowing of the airway due to inflammation. The case was discussed with the ENT physician at [facility], who reviewed the images and determined that no transfer was needed, as the condition could be medically managed. The patient was given clindamycin and dexamethasone. Hospital course: Patient was admitted overnight and by the next morning was feeling much better, the swelling on hre face has gone down singicantly, she was not having any difficulty talking, swallowing or breathing and asked to go home. She will be transitioned to oral Clindamcyin 300 mg 3 times a day for 7 days, advise sucking on hard candies to stimulate saliva and to follow up with her PCP within the week, she might need ENT follow up on outpatient basis if doesn't improve. Intital WBC of 12 is now 10 Time Attestation Discharge Coordination Time (in mins): 35 Quality: Safe Use of Opioids Does Pt have an Active Cancer Diagnosis on the Problem List?: No Quality: Stroke Does the patient have a stroke diagnosis?: No Physical Exam Vital Signs: Vital Signs: Last Vital Signs Temp 97.0 F 09/23/24 07:48 Pulse 99 09/23/24 07:48 Resp 16 09/23/24 07:48 BP 145/89 H 09/23/24 07:48 Pulse Ox 94 09/23/24 07:48 O2 Del Method Nasal Cannula 09/23/24 07:48 O2 Flow Rate 1 09/23/24 07:48 BMI result Body Mass Index 41.2 General: AO X 3, no acute distress HEET: No obvious obstruction throught the mouth, thre is minimal swelling of the left side of the face. Resp: CTA bilateral CVS: S1,S2,RRR GI: +BS, NT, no distention Skin: No rash Neuro: motor grossly intact Psych: appropriate affect DS: Data Data Completed and Pending Labs on day of discharge: Laboratory Results - last 24 hr 09/22/24 09/22/24 09/22/24 18:24 21:20 21:49 WBC 12.9 H RBC 4.03 L Hgb 11.7 L Hct 35.4 L MCV 87.8 MCH 29.0 MCHC 33.1 RDW 13.0 Plt Count 234 MPV 8.8 L Immature Gran % (Auto) 0.3 Neut % (Auto) 80.2 H Lymph % (Auto) 13.0 L [place] % (Auto) 4.8 Eos % (Auto) 1.2 Baso % (Auto) 0.5 Lymph # (Auto) 1.7 [place] # (Auto) 0.6 Eos # (Auto) 0.2 Baso # (Auto) 0.1 Abs Immat Gran (auto) 0.04 H Absolute Neuts (auto) 10.3 H Absolute Nucleated RBC 0.000 Nucleated RBC % (auto) 0.0 Smear Tech's Comments Sodium 141 Potassium 4.0 Chloride 107 Carbon Dioxide 24 Anion Gap 14 BUN 15 Creatinine 0.88 Estim Creat Clear Calc 62.5 Estimated GFR > 60 POC Glucose Random Glucose 164 H Lactic Acid 1.0 Calcium 8.9 Urine Color Yellow Urine Appearance Clear Urine pH 5.5 Ur Specific [place] >= 1.030 H Urine Protein Negative Urine Glucose (UA) Negative Urine Ketones Negative Urine Blood Negative Urine Nitrite Negative Ur Leukocyte Esterase Negative 09/22/24 09/23/24 09/23/24 22:16 01:39 05:49 WBC 10.5 RBC 3.86 L Hgb 11.2 L Hct 33.2 L MCV 86.0 MCH 29.0 MCHC 33.7 RDW 12.8 Plt Count 218 MPV 9.2 L Immature Gran % (Auto) 0.5 H Neut % (Auto) 92.9 H Lymph % (Auto) 5.9 L [place] % (Auto) 0.5 L Eos % (Auto) 0.0 Baso % (Auto) 0.2 Lymph # (Auto) 0.6 L [place] # (Auto) 0.1 Eos # (Auto) 0.0 Baso # (Auto) 0.0 Abs Immat Gran (auto) 0.05 H Absolute Neuts (auto) 9.7 H Absolute Nucleated RBC 0.000 Nucleated RBC % (auto) 0.0 Smear Tech's Comments VERIFIED Sodium 138 Potassium 4.2 Chloride 106 Carbon Dioxide 22 Anion Gap 14 BUN 15 Creatinine 0.81 Estim Creat Clear Calc 67.9 Estimated GFR > 60 POC Glucose 143 H 202 H Random Glucose 286 H Lactic Acid Calcium 8.9 Urine Color Urine Appearance Urine pH Ur Specific [place] Urine Protein Urine Glucose (UA) Urine Ketones Urine Blood Urine Nitrite Ur Leukocyte Esterase 09/23/24 07:55 WBC RBC Hgb Hct MCV MCH MCHC RDW Plt Count MPV Immature Gran % (Auto) Neut % (Auto) Lymph % (Auto) [place] % (Auto) Eos % (Auto) Baso % (Auto) Lymph # (Auto) [place] # (Auto) Eos # (Auto) Baso # (Auto) Abs Immat Gran (auto) Absolute Neuts (auto) Absolute Nucleated RBC Nucleated RBC % (auto) Smear Tech's Comments Sodium Potassium Chloride Carbon Dioxide Anion Gap BUN Creatinine Estim Creat Clear Calc Estimated GFR POC Glucose 279 H Random Glucose Lactic Acid Calcium Urine Color Urine Appearance Urine pH Ur Specific [place] Urine Protein Urine Glucose (UA) Urine Ketones Urine Blood Urine Nitrite Ur Leukocyte Esterase Discharge Plan Discharge Anticipated Discharge Date/Time: 09/23/24 09:48 Patient Disposition: Home, Self-Care Discharge Diagnosis: Acute Parotitis Referrals: Lon Bishop MD [Primary Care Provider] - 1 Week Discharge Medications: New clindamycin HCl 300 mg capsule 300 mg PO TID Qty: 20 0RF Continued multivitamin Tablet 1 tab PO DAILY atorvastatin 40 mg tablet 40 mg PO DAILY folic acid 400 mcg Tablet 0.4 mg PO DAILY furosemide 20 mg tablet 20 mg PO Q48H PRN (Reason: leg swelling) fluticasone propion-salmeterol 230-21 mcg/actuation HFA aerosol inhaler 2 inh inhalation BID Patient Comments: pt is non-compliant with this inhaler ibuprofen 800 mg tablet 800 mg PO TID PRN (Reason: Pain) (DME) insulin syringe-needle U-100 0.5 mL 31 gauge x 5/16 syringe See Rx Instructions .ROUTE .MEDSUPPLY Qty: 10 Rx Instructions: As directed amitriptyline 100 mg tablet 100 mg PO BEDTIME insulin glargine 100 unit/mL solution 50 unit subcut BID aspirin [Adult Low Dose Aspirin] 81 mg tablet,delayed release (DR/EC) 81 mg PO DAILY glipizide [Glucotrol XL] 5 mg tablet extended release 24hr 5 mg PO DAILY losartan 25 mg tablet 25 mg PO DAILY Diet: Diabetic diet Activity on Discharge: As tolerated Stand Alone Forms: Patient Portal Discharge page Print Language: Azerbaijani Care Plan Goals: recovery from acute parotitis Health Concerns: Acute parotitis Plan of Treatment: Take Clindamycin 300 mg 3 times a day for 7 days Follow up with your doctor this week, call for appointment. If you have difficulty talking, eating or breathing call [phone] Sucking on sour candies of your choice Assessment: see above
[2024-09-23 11:15] LABS: Glucose, Whole Blood 303 mg/dL (60-115)
[2024-09-23 11:50] VITALS: BP 162/52; PULSE 100; RESP 20; TEMP 36.4; O2SAT 97
[2024-09-23] MEDS: Fluticasone/Vilanterol 200/25 BLST.W.DEV 1 PUFF INHALE (12:02)
[2024-09-23] MEDS: Losartan Potassium 25 MG TABLET PO (12:02)
[2024-09-23] MEDS: Atorvastatin Calcium 40 MG TABLET PO (12:02)
[2024-09-23] MEDS: Aspirin Enteric Coated 81 MG TABLET.DR PO (12:02)
[2024-09-23] MEDS: Multivitamin TABLET 1 TAB PO (12:02)
[2024-09-23] MEDS: Clindamycin HCL 300 MG CAPSULE PO (12:02)
[2024-09-23] MEDS: glipiZIDE XL 5 MG TAB.ER.24 PO (12:08)
--- NOTE | 2024-09-23 16:43 | MHC.CM.PN ---
IMM 09/23/2024, EMR REVIEWED, PT W/FACIAL SWELLING, PT LIVES W/ AND THEIR DOG, PT IS INDEP W/CARE, USES A WALKER FOR AMBULATION, NO HOME SERVICES AND REPORTS SHE HAS A HCP AT HOME, COPY REQUESTED. PT VERIFIES PCP ON FILE IS CORRECT. PT DISCHARGED HOME SELF CARE W/HER SIRI FOR TRANSPORT
== END 2024-09-23 12:46 | disposition home or self-care (01) | DRG 156 ==
LOC: HO.ED 21:30 → HO.EDOVER 21:36 → HO.IMC 22:50
PROVIDERS: Admitting Provider Hospitalist; Emergency Provider Emergency Medicine; PCP Internal Medicine; Visit Provider Internal Medicine
DX: K11.21 Acute sialoadenitis (principal); F17.210 Nicotine dependence, cigarettes, uncomplicated; I10 Essential (primary) hypertension; Z71.6 Tobacco abuse counseling; Z95.2 Presence of prosthetic heart valve; Z79.4 Long term (current) use of insulin; Z79.51 Long term (current) use of inhaled steroids; Z79.82 Long term (current) use of aspirin; Z79.899 Other long term (current) drug therapy
CPT/HCPCS: 36415; 70491; 80048; 81003; 82947; 83605; 85025; 87040; 99285; J0736; J1100; J1650; Q9967

== ENCOUNTER → 2024-09-22 18:11 | Outpatient (BNV) | payer MEDICARE, OTHER, SELFPAY | PROVIDERS: Emergency Provider Emergency Medicine; PCP Internal Medicine; Visit Provider Radiology Diagnostic Radiology | DX: K11.20 Sialoadenitis, unspecified (principal) | CPT/HCPCS: 70491 ==

== ENCOUNTER → 2024-09-22 21:26 | Outpatient (BNV) | payer MEDICARE, OTHER, SELFPAY | PROVIDERS: Admitting Provider Hospitalist; Emergency Provider Emergency Medicine; PCP Internal Medicine; Visit Provider Hospitalist | DX: K11.21 Acute sialoadenitis (principal); I10 Essential (primary) hypertension; Z95.2 Presence of prosthetic heart valve | CPT/HCPCS: 99239 ==

== ENCOUNTER 2024-10-11 12:01 | Emergency (ER) | payer MEDICARE, OTHER, SELFPAY ==
--- NOTE | ~2024-10-11 | US_ITS ---
EXAMINATION: US LOWER EXTREMITY VEINS LIMITED FOLLOW UP RIGHT HISTORY: erythema, swelling COMPARISON: There are no prior studies for comparison. TECHNIQUE: Duplex and color Doppler sonographic examination of the deep venous system of the right lower extremity was performed. FINDINGS: The common femoral, superficial femoral, and popliteal veins are patent demonstrating normal compressibility, spontaneous flow, and augmentation. There is a normal color and spectral Doppler waveform appearance of the visualized deep venous system above the knee. The posterior tibial veins are patent. The peroneal veins are not well visualized. US/US venous duplex LE RT IMPRESSION: No evidence of acute DVT in the right lower extremity. Electronically signed by: Hipolito Brown MD 10/11/2024 03:12 PM EDT RP
[2024-10-11 12:08] VITALS: BP 148/52; PULSE 101; RESP 20; TEMP 36.3; O2SAT 96; BMI 41.2
--- NOTE | 2024-10-11 12:11 | ED.GENADULT ---
HPI - General Adult General Chief complaint: General Medical Stated complaint: Swelling/soreness R leg, lightheaded Time Seen by Provider: 10/11/24 15:57 Source: patient Mode of arrival: ambulatory Limitations: no limitations History of Present Illness ED Provider: Dr. Ino Drake HPI narrative: 79-year-old female with a history of hypertension, mitral stenosis, status post TAVR, COPD wears oxygen at night who presents emergency department for peripheral edema. The patient states that she was had increased swelling in her lower extremity times weeks. she states that her right leg in his now significantly more swollen in her left leg. 1 week prior, she did have a duplex ultrasound of her right lower extremity and there was no DVT noted. She states that her swelling in her leg is gotten worse therefore she came to the emergency department for evaluation. She states she was having pain in both for legs. she states that the swelling gets progressively worse throughout the day and when she wakes up in the morning the swelling is improved. The patient denied fever, chills, cough, chest pain, shortness of breath. She states she always has dyspnea on exertion with a it is no change from her baseline. She denied nausea, vomiting, diarrhea, dark stools, bloody stools. Patient was prescribed furosemide 20 mg daily but she states she does not take this medication since it causes significant cramping of her extremities. The patient drinks 3-4 16 oz bottles of water and several sodas per day Related Data Home Medications ?Medication ?Instructions ?Recorded ?Confirmed ibuprofen 800 mg tablet 800 mg PO TID PRN Pain 05/29/20 09/23/24 insulin syringe-needle U-100 0.5 #10 ea 05/29/20 04/05/23 mL 31 gauge x 11/23 amitriptyline 100 mg tablet 100 mg PO BEDTIME 09/30/20 09/23/24 insulin glargine 100 unit/mL 50 unit subcut BID 09/30/20 09/23/24 subcutaneous solution aspirin 81 mg tablet,delayed 81 mg PO DAILY 11/16/21 09/23/24 release (Adult Low Dose Aspirin) glipizide 5 mg tablet, extended 5 mg PO DAILY 08/07/24 09/23/24 release 24 hr (Glucotrol XL) losartan 25 mg tablet 25 mg PO DAILY 08/07/24 09/23/24 atorvastatin 40 mg tablet 40 mg PO DAILY 09/23/24 09/23/24 fluticasone propionate 230 2 inh inhalation BID 09/23/24 09/23/24 mcg-salmeterol 21 mcg/actuation HFA inhaler folic acid 400 mcg tablet 0.4 mg PO DAILY 09/23/24 09/23/24 furosemide 20 mg tablet 20 mg PO Q48H PRN leg swelling 09/23/24 09/23/24 multivitamin 1 tab PO DAILY 09/23/24 09/23/24 Previous Rx's ?Medication ?Instructions ?Recorded clindamycin HCl 300 mg capsule 300 mg PO TID #20 caps 09/23/24 potassium chloride 20 mEq 20 meq PO DAILY 30 days #30 tabs 10/11/24 tablet,extended release(part/cryst) Allergies Allergy/AdvReac Type Severity Reaction Status Date / Time bee pollen [BEE STINGS] Allergy Intermediate SWELLING Verified 10/11/24 12:13 cyclobenzaprine Allergy Mild UNKNOWN Verified 10/11/24 12:13 [From Flexeril] Penicillins Allergy Mild UNKNOWN Verified 10/11/24 12:13 metformin [From GLUCOPHAGE] Allergy Unknown SEVER Verified 10/11/24 12:13 DIARRHEA Review of Systems Review of Systems: Yes all other systems are reviewed and are negative COUNT INCLUDES THE [facility] Past Medical History COUNT INCLUDES THE [facility] Narrative: Social history: The patient smokes 2 packs of cigarettes per day times 52 years. She denies alcohol use. She denies drug use. Medical History Morbid obesity Vertigo Seizure Stroke Diabetes HTN (hypertension) Aortic stenosis Nocturnal hypoxemia SHANNON (obstructive sleep apnea) Smoker COPD (chronic obstructive pulmonary disease) Surgical History S/P TAVR (transcatheter aortic valve replacement) Retained myringotomy tube in left ear Family History Family History Father No problems noted. Mother No problems noted. Social History Social History Household Members: Spouse Housing: House Patient Tobacco Use Status: Current everyday Tobacco user Tobacco use type: Cigarette Cigarette Packs Per Day: 2 Cigarettes Per Day: 40.0 Years Smoked: started at 27 years old Second Hand Smoke Exposure: No service: No Physical Exam ED Vital Signs: Vital Signs - 24 hr 10/11/24 12:08 Temperature 97.3 F Pulse Rate 101 H Respiratory Rate 20 Blood Pressure 148/52 H Pulse Oximetry 96 Oxygen Delivery Method Room Air BMI result Body Mass Index 41.2 Vital signs revealed an elevated blood pressure of 148/52, elevated heart rate of 101, O2 saturation was normal at 98% on room air Exam: General: Awake, alert in no distress Head: Normocephalic, atraumatic EENT: PERRL, Lids normal, sclera normal, conjunctiva normal, nose normal , ears normal, throat without erythema or exudates Neck: Supple, no adenopathy Lung: breath sounds symmetric, no wheezing, rales or rhonchi Chest: symmetric movement, nontender Heart: regular rate and rhythm, normal S1, S2 no murmurs or rubs Abdomen: soft, non-tender, nondistended, normal bowel sounds Back: no vertebral tenderness, no CVAT Extremities: no deformities,Patient has asymmetric swelling with the right lower extremity being 1-1/2 times larger than left. Patient has 1+ pitting edema in both lower extremities Neuro: Awake, alert, oriented, normal speech, cranial nerves intact, moves all extremities symmetrically Psych: Pleasant, cooperative Course Course Course Narrative: This is a rapid medical exam performed by Stefano Wheat NP: Additional HPI, ROS, PE not included below will be deferred to primary provider. 10/11/24 12:11 Patient is a 79-year-old female presenting with complaint of right leg pain, swelling and erythema. Seen at [facility], [facility] u/s. Reports cold sweats. Seen here 09/22 for acute parotitis. Unable to obtain [facility] records from triage. Plan: labs Medical Decision Making Medical Decision Making MDM Narrative: 79-year-old female with a history of hypertension, mitral stenosis, status post TAVR, COPD wears oxygen at night who presents emergency department for peripheral edema times weeks, with the right lower extremity being larger than the left. Patient had a negative duplex ultrasound of the right lower extremity 1 week prior. She had no concerning systemic symptoms. Patient was not take her furosemide since it causes muscle cramps. She does drink a significant amount of fluid per day ( 3-4 16 oz bottles of water and several sodas per day). vital signs did reveal an elevated blood pressure and elevated heart rate. Exam did reveal asymmetric pitting edema with the right leg being large in the left otherwise exam was unremarkable. Differential diagnosis: Includes but is not limited to Dependent peripheral edema, congestive heart failure, DVT, liver failure, kidney failure, electrolyte abnormalities Course: my interpretation patient's laboratory evaluation is as follows: Normocytic anemia with an H&H of 10.8 and 33.9. Glucose elevated 185. BUN and creatinine were normal. LFTs were normal. The patient was duplex ultrasound of her right lower extremity revealed no DVT. The patient has dependent edema of unknown etiology and I did discuss this with her. Patient was advised to take her furosemide 20 mg every other day and was also prescribed K-Dur 20 mEq to take when she takes the furosemide. She was advised to cut her fluid intake and half and to weigh herself daily. I told her that it is important that she urinates out more fluid and she drinks and that she needs to get into a negative fluid balance. I told her if she was not lose 4-6 lb in 1-2 weeks then she should talk to her PCP about increasing her furosemide dose or about taking her furosemide daily. Admission/Observation Consideration of admission/observation: Escalation of care including admission/observation considered ( Yes) Lab Data MDM Lab Attestation statement: I reviewed the patient's lab results. 10/11/24 13:30 10/11/24 13:30 Labs: Lab Results 10/11/24 Range/Units 13:30 WBC 10.7 (4.8-10.8) X10*3/uL RBC 3.80 L (4.20-5.50) X10*6/uL Hgb 10.8 L (12.0-16.0) g/dl Hct 33.9 L (37.0-47.0) % MCV 89.2 (80.0-98.0) fL MCH 28.4 (27.0-33.0) pg MCHC 31.9 (31.0-35.0) g/dl RDW 13.1 (11.0-16.0) % Plt Count 228 (160-400) X10*3/uL MPV 9.2 L (9.4-12.3) fL Immature Gran % (Auto) 0.4 (0.0-0.4) % Neut % (Auto) 81.5 H (45-73) % Lymph % (Auto) 12.0 L (20-40) % Bonner % (Auto) 4.1 (2-11) % Eos % (Auto) 1.5 (0-4) % Baso % (Auto) 0.5 (0-2) % Lymph # (Auto) 1.3 (1.2-4.9) X10*3/uL Bonner # (Auto) 0.4 (0.1-1.2) X10*3/uL Eos # (Auto) 0.2 (0.0-0.4) X10*3/uL Baso # (Auto) 0.1 (0.0-0.2) X10*3/uL Abs Immat Gran (auto) 0.04 H (0.00-0.03) X10*3/uL Absolute Neuts (auto) 8.8 H (2.0-8.3) x10*3/uL Absolute Nucleated RBC 0.000 (0.0-0.012) X10*3/uL Nucleated RBC % (auto) 0.0 (0.0-0.2) /100WBC Sodium 139 (135-145) mmol/L Potassium 4.3 (3.3-5.1) mmol/L Chloride 107 (96-108) mmol/L Carbon Dioxide 25 (22-29) mmol/L Anion Gap 11 L (12-20) BUN 11 (9-16) mg/dL Creatinine 0.69 (0.5-1.4) mg/dL Estim Creat Clear Calc 79.6 Estimated GFR > 60 Random Glucose 185 H (60-115) mg/dL Lactic Acid 1.9 (0.5-2.0) mmol/L Calcium 9.0 (8.4-10.2) mg/dL Total Bilirubin 0.3 (0.0-1.0) mg/dL AST 16 (5-31) U/L ALT 12 (0-31) U/L Alkaline Phosphatase 98 (39-117) U/L B-Natriuretic Peptide 28 (<100) pg/mL Total Protein 6.6 (6.5-8.0) g/dL Albumin 3.7 (3.5-5.0) g/dL Radiology Impression Discussion of test interpretation with radiology: I have reviewed the radiologist's reading. Radiologist Impression: US venous duplex LE RT IMPRESSION: No evidence of acute DVT in the right lower extremity. Electronically signed by: Hipolito Brown MD 10/11/2024 03:12 PM EDT RP Prescription Management I considered prescription management with: Other ( potassium supplement: K-Dur) Chronic Conditions Patient?s care impacted by: Hypertension and Other ( COPD, tobacco use disorder) Discharge Plan Discharge Clinical Impression: Edema, peripheral Patient Disposition: Home, Self-Care Instructions: Leg Edema (ED) Additional Instructions: Your blood work was unremarkable. Your kidney function was normal and your liver tests were normal which is reassuring. The duplex ultrasound of your right leg revealed no blood clot which is reassuring. Your exam is consistent with ?pitting edema?. Sometimes your body holds onto fluid and you need a water pill (Lasix/furosemide) in order to get the fluid off of your body. Take Lasix (furosemide) 20 mg pills, 1 pill every other day for 1-2 weeks. When you take the furosemide take the potassium pill that I am prescribing for you, this might help reduce the amount of cramping that you get when you take your water pill. While you are taking the water pill, furosemide, over the next 2 weeks, you need to cut the amount of fluid that you drink in half so that you are peeing out more fluid then you are drinking. I want you to weigh yourself daily and if this is working you should lose 4-6 lb over the next 2 weeks. If not, your doctor may need to increase the amount of furosemide that you take. When you were sitting, you should keep your legs elevated and this will help reduce the swelling as well. Once your legs get smaller you should consider buying some compression stockings to keep the fluid out of your legs. You can wear these during the day and take them off at night Follow-up with your doctor in 2 days. Please return to the emergency department if your symptoms get worse or if you develop any symptoms that are concerning to you. If you are not losing sufficient amount of fluid weight then you should take the furosemide daily with a daily dose of potassium. If this is not working then your doctor may need to increase your furosemide dose. Prescriptions: New potassium chloride 20 mEq tablet,ER particles/crystals 20 meq PO DAILY 30 Days Qty: 30 1RF No Action multivitamin Tablet 1 tab PO DAILY atorvastatin 40 mg tablet 40 mg PO DAILY folic acid 400 mcg Tablet 0.4 mg PO DAILY furosemide 20 mg tablet 20 mg PO Q48H PRN (Reason: leg swelling) fluticasone propion-salmeterol 230-21 mcg/actuation HFA aerosol inhaler 2 inh inhalation BID Patient Comments: pt is non-compliant with this inhaler clindamycin HCl 300 mg capsule 300 mg PO TID Qty: 20 0RF ibuprofen 800 mg tablet 800 mg PO TID PRN (Reason: Pain) (DME) insulin syringe-needle U-100 0.5 mL 31 gauge x 5/16 syringe See Rx Instructions .ROUTE .MEDSUPPLY Qty: 10 Rx Instructions: As directed amitriptyline 100 mg tablet 100 mg PO BEDTIME insulin glargine 100 unit/mL solution 50 unit subcut BID aspirin [Adult Low Dose Aspirin] 81 mg tablet,delayed release (DR/EC) 81 mg PO DAILY glipizide [Glucotrol XL] 5 mg tablet extended release 24hr 5 mg PO DAILY losartan 25 mg tablet 25 mg PO DAILY Print Language: Georgian
[2024-10-11 13:40] LABS: MANUAL DIFF FLAG NO
[2024-10-11 13:44] LABS: Basophils Absolute Auto 0.1 X10*3/uL (0.0-0.2); Basophils Percent Auto 0.5 % (0-2); Eosinophils Absolute Auto 0.2 X10*3/uL (0.0-0.4); Eosinophils Percent Auto 1.5 % (0-4); Hematocrit 33.9 % (37.0-47.0); Hemoglobin 10.8 g/dl (12.0-16.0); Imm Gran Abs Auto 0.04 X10*3/uL (0.00-0.03); Imm Gran Pct Auto 0.4 % (0.0-0.4); Lymphocytes Absolute Auto 1.3 X10*3/uL (1.2-4.9); Mean Corpuscular HGB Conc 31.9 g/dl (31.0-35.0); Mean Corpuscular Hemoglobin 28.4 pg (27.0-33.0); Mean Corpuscular Volume 89.2 fL (80.0-98.0); Mean Platelet Volume 9.2 fL (9.4-12.3); Monocytes Absolute Auto 0.4 X10*3/uL (0.1-1.2); Monocytes Percent Auto 4.1 % (2-11); Neutrophils Absolute Auto 8.8 x10*3/uL (2.0-8.3); Neutrophils Percent Auto 81.5 % (45-73); Platelet Count 228 X10*3/uL (160-400); Red Cell Distribution Width 13.1 % (11.0-16.0); White Blood Count 10.7 X10*3/uL (4.8-10.8)
[2024-10-11 13:56] LABS: Lactic Acid 1.9 mmol/L (0.5-2.0)
[2024-10-11 13:57] LABS: Alanine Aminotransferase 12 U/L (0-31); Albumin Level 3.7 g/dL (3.5-5.0); Alkaline Phosphatase 98 U/L (39-117); Anion Gap 11 (12-20); Aspartate Amino Transferase 16 U/L (5-31); Bilirubin Total 0.3 mg/dL (0.0-1.0); Blood Urea Nitrogen 11 mg/dL (9-16); Carbon Dioxide 25 mmol/L (22-29); Chloride 107 mmol/L (96-108); Creatinine Clr Calc Pharmacy 79.6; Estimated Glomerular Filt Rate > 60; Glucose Random 185 mg/dL (60-115); Potassium 4.3 mmol/L (3.3-5.1); Sodium 139 mmol/L (135-145); Total Protein 6.6 g/dL (6.5-8.0)
[2024-10-11 14:00] LABS: B Type Natriuretic Peptide 28 pg/mL (<100)
[2024-10-11 16:33] VITALS: BP 146/52; PULSE 108; RESP 20; TEMP 36.9; O2SAT 96
[2024-10-11 16:50] VITALS: BP 146/52; PULSE 108; RESP 20; TEMP 36.9; O2SAT 96
--- OUTSIDE RECORDS SUMMARY | 2024-10-11 17:03 | XMS_ITS | Patient Health Record ---
Author Organization [facility] Address [address] [place] [address] Care Team Providers Care Marketing Summer Intern Name Role Phone Lon Bishop MD Primary Care Provider Phyllis Abrams Unavailable [phone] Allergies Allergen (clinical drug ingredient) Drug/Non Drug [...] Vaccine Route Administration Date Status Comme nts Influenza Unknown 02/08/2022 Administered COVID-19 Moderna Vaccine Unknown 02/08/2022 Administered 2020,2020 2020,2021 [place] Dates Social History Tobacco Use: Social History Observation [...] Problem Acquired hammer toe of right foot (5081579023596840) Other hammer toe(s) (acquired), right foot (M20.41) Active confirmed Problem Acquired hammer toe of left foot (9866457853688136) Other hammer toe(s) (acquired), left foot (M20.42) Active confirmed Problem Polyneuropathy due to diabetes mellitus type I (127805266) Type 1 diabetes mellitus with diabetic polyneuropathy (E10.42) Active confirmed Problem 005908715 Hammertoe of lef t foot (M20.42) Active confirmed Problem 112768452 Hammertoe of right foot (M20.41) Active confirmed Problem 98176733197601233 Atherosclerosi s of artery of both lower extremities (I70.203) Active confirmed Plan Of Treatment Pending Test Test Name Order Date 92803-DAVQ SKIN LESIONS, 2 TO 4 09/18/19 20 [id number] DYSTROPHIC NAILS ANY # Insurance Providers Payer Name Payer Address Payer Phone Subscriber Number Group Number Insured Name Patient Relationship to Insured Coverage Start Date Coverage End Date Medicare National [employer] [address] [place] [phone] [id number] Silvia Watson Self - patient is the insured for Life [address] [place] [address] [id number] Silvia Watson Self - patient is the insured Medical (General) History Medical History History ICD Code Anxiety Back,Hip,and Knee pain Broken bones Diabetic type ll Fibromyalgia Numbness COPD Surgical History Surgery Date(Month/Year) Niraj cataract surgery 07/2021
== END 2024-10-11 16:53 | disposition home or self-care (01) ==
PROVIDERS: Registered Nurse Emergency; Emergency Provider Emergency Medicine Emergency Medical Services; PCP Internal Medicine
DX: R60.0 Localized edema (principal); M79.605 Pain in left leg; M79.604 Pain in right leg; R06.02 Shortness of breath; E11.9 Type 2 diabetes mellitus without complications; I10 Essential (primary) hypertension; F17.210 Nicotine dependence, cigarettes, uncomplicated; Z79.4 Long term (current) use of insulin; Z79.899 Other long term (current) drug therapy
CPT/HCPCS: 36415; 80053; 83605; 83880; 85025; 87040; 93971; 99284

== ENCOUNTER → 2024-10-11 12:14 | Outpatient (BNV) | payer MEDICARE, OTHER, SELFPAY | PROVIDERS: Emergency Provider Emergency Medicine Emergency Medical Services; PCP Internal Medicine; Visit Provider Radiology Diagnostic Radiology | DX: R22.41 Localized swelling, mass and lump, right lower limb (principal) | CPT/HCPCS: 93971 ==

== ENCOUNTER 2024-10-19 07:51 | Outpatient (AMB) | payer MEDICARE, OTHER, SELFPAY ==
--- OUTSIDE RECORDS SUMMARY | 2024-10-19 07:53 | XMS_ITS | Patient Health Record ---
Author Organization [facility] Address [address] [address] Care Team Providers Care Helicopter Dispatcher Name Role Phone Lon Bishop MD Primary Care Provider Phyllis Abrams Unavailable [phone] Allergies Allergen (clinical drug ingredient) Drug/Non Drug [...] Problem Acquired hammer toe of right foot (7321275635774929) Other hammer toe(s) (acquired), right foot (M20.41) Active confirmed Problem Acquired hammer toe of left foot (7101626539880077) Other hammer toe(s) (acquired), left foot (M20.42) Active confirmed Problem Polyneuropathy due to diabetes mellitus type I (384132723) Type 1 diabetes mellitus with diabetic polyneuropathy (E10.42) Active confirmed Problem 147318589 Hammertoe of lef t foot (M20.42) Active confirmed Problem 869602080 Hammertoe of right foot (M20.41) Active confirmed Problem [id number] Atherosclerosi s of artery of both lower extremities (I70.203) Active confirmed Plan Of Treatment Pending Test Test Name Order Date 84169-TWCD SKIN LESIONS, 2 TO 4 09/18/19 20 [id number] DYSTROPHIC NAILS ANY # Insurance Providers Payer Name Payer Address Payer Phone Subscriber Number Group Number Insured Name Patient Relationship to Insured Coverage Start Date Coverage End Date Medicare National Govt Sv[employer] [address] [place] [phone] [id number] Silvia Watson Self - patient is the insured for Life [address] [place] [address] [id number] Silvia Watson Self - patient is the insured Medical (General) History Medical History History ICD Code Anxiety Back,Hip,and Knee pain Broken bones Diabetic type ll Fibromyalgia Numbness COPD Surgical History Surgery Date(Month/Year) Niraj cataract surgery 07/2021
[2024-10-19 08:06] VITALS: BP 136/50; PULSE 100; BMI 41.5
--- NOTE | 2024-10-19 08:06 | A.OFFVIS_ITS ---
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 Required: No Accompanied by: Spouse Allergies bee pollen [BEE STINGS] Allergy (Intermediate, Verified 10/11/24 12:13) SWELLING cyclobenzaprine [From Flexeril] Allergy (Mild, Verified 10/11/24 12:13) UNKNOWN Penicillins Allergy (Mild, Verified 10/11/24 12:13) UNKNOWN metformin [From GLUCOPHAGE] Allergy (Unknown, Verified 10/11/24 12:13) SEVER DIARRHEA Medication List - Last Reconciled 10/19/24 by AMY GaoC amitriptyline 100 mg PO BEDTIME aspirin (Adult Low Dose Aspirin) 81 mg PO DAILY atorvastatin 40 mg PO DAILY fluticasone propion-salmeterol 230-21 mcg/actuation 2 inhalations inhalation BID folic acid 0.4 mg PO DAILY furosemide 20 mg PO Q48H PRN glipizide ER (Glucotrol XL) 5 mg PO DAILY ibuprofen 800 mg PO TID PRN insulin glargine 50 units subcut BID insulin syringe-needle U-100 As directed losartan 25 mg PO DAILY multivitamin 1 tab PO DAILY potassium chloride ER 20 mEq PO DAILY 30 days HPI HPI ER-Follow up- Leg swelling: Details: Silvia is a 79-year-old female with past medical history of morbid obesity, hypertension, diabetes, sleep apnea, COPD, smoking, aortic stenosis status post TAVR 09/2021, mitral stenosis who was recently seen in the emergency room for leg edema. An ultrasound showed no DVT. She now presents for follow-up. Today she reports she has been having increasing swelling in her right lower extremity. She has mild swelling in the left lower extremity. She tells me it is currently lessened appearance then when she was in the emergency room she had not been taking her Lasix since it causes muscle cramps. In the ER they did recommend that she take the Lasix every other day and gave her a potassium supplement to take along with it. So far she has been able to tolerate this. She was also drinking what sounds like around 64 oz of fluid daily. She was instructed to cut back her fluid and salt intake. She tells me her swelling is better in the a.m. and worse as the day goes on. She tries to keep her legs elevated and has tried compression stockings but does not feel they help. No chest discomfort at rest or with activity. She has chronic shortness of breath with walking which has not changed recently. No PND, orthopnea. No heart palpitations, lightheadedness, presyncope, syncope, falls. is present. [facility] Medical History Morbid obesity Vertigo Seizure Stroke Diabetes HTN (hypertension) Aortic stenosis Nocturnal hypoxemia SHANNON (obstructive sleep apnea) Smoker COPD (chronic obstructive pulmonary disease) Surgical History S/P TAVR (transcatheter aortic valve replacement) Retained myringotomy tube in left ear Family History Father No problems noted. Mother No problems noted. Social History Household Members: Spouse Housing: House Alcohol intake: former Patient Tobacco Use Status: Current everyday Tobacco user Tobacco use type: Cigarette Cigarette Packs Per Day: 2 Cigarettes Per Day: 40.0 Years Smoked: started at 27 years old Second Hand Smoke Exposure: No service: No Review of Systems Const All systems reviewed & are unremarkable except as noted in HPI and below Denies chills, Reports fatigue, Denies fever(s), Denies weight gain and Denies weight loss ENT Denies dizziness Card Denies chest pain, Reports leg edema, Denies lightheadedness, Denies palpitations, Reports dyspnea on exertion, Denies orthopnea and Denies other Resp Denies cough and Reports dyspnea on exertion GI Denies hematochezia and Denies change in stool character Musc Denies abnormal gait, Denies muscle weakness, Denies numbness, Denies radiating pain into limb and Denies tingling Neuro Denies abnormal gait, Denies dizziness, Denies numbness and Denies tingling Endo Reports fatigue and Denies palpitations Physical Exam Vital Signs: Last Vital Signs Pulse 100 10/19/24 08:06 BP 136/50 L 10/19/24 08:06 BMI result Body Mass Index 41.5 Const General: cooperative, comfortable and no acute distress Orientation/consciousness: patient oriented x3 Neck Neck: Yes normal visual inspection and Yes no JVD Resp Effort & Inspection: normal respiratory effort Auscultation: clear to auscultation bilaterally, no rales, no rhonchi and no wheezes Cardio Rate: regular rate Rhythm: regular rhythm Heart sounds: S1 normal heart sound present, S2 normal heart sound present, no murmurs and no rubs Neuro General: patient oriented x3 Extrem Other: pitting edema right lower extremity with pinkness of skin, no skin breaks, to level of upper calf Psych Appearance: grossly normal Mental Status: mental status grossly normal Speech and movement: Normal speech and movement present Assessment & Plan Assessment & Plan (1) Lower leg edema: Code(s): R60.0 - Localized edema Category: Medical Plan: Lower leg edema, right greater than left which is newer for her in the last few months. Recent ultrasound showed no right lower extremity DVT. She has been taking Lasix 20 mg every other day and currently reports some improvement in her edema. Her swelling is likely multifactorial in nature with obesity, sedentary, diastolic dysfunction, excess fluid intake. Last echo 08/21/2024 showed EF 60- 65%, mild LVH with impaired relaxation. Will have her continue Lasix every other day however increase it to 40 mg if able. Instructed her to limit fluid intake to 48 oz daily. Follow a low-salt diet, less than 2 g daily. Leg elevation when sitting and use compression stockings if able. Notify PCP if she has increasing redness or pain, fever that could indicate cellulitis. (2) Mitral stenosis: Code(s): I05.0 - Rheumatic mitral stenosis Category: Medical Plan: History of mitral stenosis with recent echocardiogram showing moderate to severe calcific mitral stenosis, no mitral regurgitation. She is scheduled to undergo cardiac catheterization for further evaluation. Catheterization currently scheduled for 11/21/2023. Her cardiology follow-up will be 2 weeks postprocedure. (3) SOB (shortness of breath) on exertion: Code(s): R06.02 - Shortness of breath Category: Medical Plan: Chronic shortness of breath with exertion which is likely multifactorial in nature. She has morbid obesity, sedentary lifestyle, smoking, COPD, sleep apnea as well as mitral stenosis. It is not clear how much the mitral stenosis is contributing to this symptom. (4) SHANNON (obstructive sleep apnea): Comment: HAS NOT BEEN ABLE TO USE CPAP, SO SHE IS CONTENT WITH USING OXYGEN AT NIGHT. CONT. TO USE O2 2L/MT AT NIGHT . SHE IS VERY REGULAR IN USING THE O2 AT NIGHT AND SLEEPS WELL. Code(s): G47.33 - Obstructive sleep apnea (adult) (pediatric) Category: Medical Plan: She tells me she has been using her CPAP more consistently. (5) S/P TAVR (transcatheter aortic valve replacement): Comment: 26 mm Medtronic Evolut transcatheter aortic valve replacement, September 2021 Code(s): Z95.2 - Presence of prosthetic heart valve Category: Medical Plan: History of TAVR 09/2021. Recent echo shows bioprosthetic AVR is functioning normally with mean gradient 10 mmHg. SBE prophylaxis reviewed Plan Time spent on chart review, documentation, interview and assessment Coding Level of Care Code Est Pt Level 4 (43895) Complex EM visit Add On G2211 Diagnoses Lower leg edema R60.0 Mitral stenosis I05.0 SOB (shortness of breath) on exertion R06.02 SHANNON (obstructive sleep apnea) G47.33 S/P TAVR (transcatheter aortic valve replacement) Z95.2 Time Spent (min) 38
== END 2024-10-19 08:46 | disposition home or self-care (01) ==
LOC: HO.HCS 07:51
PROVIDERS: PCP Internal Medicine; Visit Provider Nurse Practitioner Family
DX: R60.0 Localized edema (principal); I05.0 Rheumatic mitral stenosis; R06.02 Shortness of breath; G47.33 Obstructive sleep apnea (adult) (pediatric); Z95.2 Presence of prosthetic heart valve
CPT/HCPCS: 99214; G2211

== ENCOUNTER → 2024-10-19 07:51 | Outpatient (BNVA) | payer MEDICARE, OTHER, SELFPAY | PROVIDERS: PCP Internal Medicine; Visit Provider Nurse Practitioner Family | DX: R60.0 Localized edema (principal); I05.0 Rheumatic mitral stenosis; R06.02 Shortness of breath; G47.33 Obstructive sleep apnea (adult) (pediatric); Z95.2 Presence of prosthetic heart valve | CPT/HCPCS: 99212 ==

== ENCOUNTER 2024-11-08 10:04 | Outpatient (REF) | payer MEDICARE, OTHER, SELFPAY ==
[2024-11-08 10:39] LABS: Hematocrit 35.4 % (37.0-47.0); Mean Corpuscular HGB Conc 31.1 g/dl (31.0-35.0); Mean Corpuscular Hemoglobin 28.3 pg (27.0-33.0); Mean Platelet Volume 9.2 fL (9.4-12.3); Platelet Count 232 X10*3/uL (160-400); Red Blood Count 3.89 X10*6/uL (4.20-5.50); Red Cell Distribution Width 13.4 % (11.0-16.0); White Blood Count 10.2 X10*3/uL (4.8-10.8)
--- OUTSIDE RECORDS SUMMARY | 2024-11-08 11:23 | XMS_ITS | Patient Health Record ---
[facility] Address [address] [address] Care Team Providers Care Financial Health Counselor Name Role Phone Lon Bishop MD Primary Care Provider Phyllis Abrams Unavailable [phone] Allergies Allergen (clinical drug ingredient) Drug/Non Drug [...] Problem Acquired hammer toe of right foot ([id number]) Other hammer toe(s) (acquired), right foot (M20.41) Active confirmed Problem Acquired hammer toe of left foot (9524292742093700) Other hammer toe(s) (acquired), left foot (M20.42) Active confirmed Problem Polyneuropathy due to diabetes mellitus type I (732236320) Type 1 diabetes mellitus with diabetic polyneuropathy (E10.42) Active confirmed Problem [id number] Hammertoe of lef t foot (M20.42) Active confirmed Problem 456432122 Hammertoe of right foot (M20.41) Active confirmed Problem [id number] Atherosclerosi s of artery of both lower extremities (I70.203) Active confirmed Plan Of Treatment Pending Test Test Name Order Date 72043-VJBM SKIN LESIONS, 2 TO 4 09/18/19 20 [id number] DYSTROPHIC NAILS ANY # Insurance Providers Payer Name Payer Address Payer Phone Subscriber Number Group Number Insured Name Patient Relationship to Insured Coverage Start Date Coverage End Date Medicare National [employer] [address] [place] [phone] [id number] Silvia Watson Self - patient is the insured for Life [address] [place] [address] [id number] Silvia Watson Self - patient is the insured Medical (General) History Medical History History ICD Code Anxiety Back,Hip,and Knee pain Broken bones Diabetic type ll Fibromyalgia Numbness COPD Surgical History Surgery Date(Month/Year) Niraj cataract surgery 07/2021
[2024-11-08 14:57] LABS: Prothrombin Time 11.2 SEC (10.9-12.4)
[2024-11-08 15:11] LABS: Anion Gap 12 (12-20); Blood Urea Nitrogen 14 mg/dL (9-16); Carbon Dioxide 27 mmol/L (22-29); Chloride 105 mmol/L (96-108); Estimated Glomerular Filt Rate > 60; Glucose Random 152 mg/dL (60-115); Potassium 4.2 mmol/L (3.3-5.1); Sodium 140 mmol/L (135-145)
== END 2024-11-08 10:05 | disposition home or self-care (01) ==
LOC: HO.LAB 10:04
PROVIDERS: PCP Internal Medicine; Visit Provider Internal Medicine Cardiovascular Disease
DX: I10 Essential (primary) hypertension (principal); G47.34 Idiopathic sleep related nonobstructive alveolar hypoventilation; R06.02 Shortness of breath
CPT/HCPCS: 36415; 80048; 85027; 85610

== ENCOUNTER → 2024-11-20 23:59 | Outpatient (BNV) | payer MEDICARE, OTHER, SELFPAY | PROVIDERS: PCP Internal Medicine; Visit Provider Internal Medicine Cardiovascular Disease | DX: I50.30 Unspecified diastolic (congestive) heart failure (principal); R93.1 Abnormal findings on diagnostic imaging of heart and coronary circulation | CPT/HCPCS: 93458; 99152 ==

== ENCOUNTER 2024-12-04 13:40 | Outpatient (AMB) | payer MEDICARE, OTHER, SELFPAY ==
--- NOTE | 2024-12-04 13:43 | MHC.OFFVIS ---
Vital Signs 12/04/24 13:48 Height 5 ft 4 in BP 148/58 H Blood Pressure Location Lt brachial Pulse 93 Pulse Source Pulse Oximeter Pulse Oximetry (%) 95 Oxygen Delivery Method Room Air Intake Visit Reasons: Follow up post cardiac cath Intake Note: Patint presents for follow up Allergies bee pollen [BEE STINGS] Allergy (Intermediate, Verified 12/04/24 13:48) SWELLING cyclobenzaprine [From Flexeril] Allergy (Mild, Verified 12/04/24 13:48) UNKNOWN Penicillins Allergy (Mild, Verified 12/04/24 13:48) UNKNOWN metformin [From GLUCOPHAGE] Allergy (Unknown, Verified 12/04/24 13:48) SEVER DIARRHEA Medication List - Last Reconciled 12/04/24 by AMY GaoC amitriptyline 100 mg PO BEDTIME aspirin (Adult Low Dose Aspirin) 81 mg PO DAILY atorvastatin 40 mg PO DAILY fluticasone propion-salmeterol 230-21 mcg/actuation 2 inhalations inhalation BID folic acid 0.4 mg PO DAILY furosemide 20 mg PO Q48H PRN glipizide ER (Glucotrol XL) 5 mg PO DAILY ibuprofen 800 mg PO TID PRN insulin glargine 50 units subcut BID insulin syringe-needle U-100 As directed losartan 25 mg PO DAILY multivitamin 1 tab PO DAILY potassium chloride ER 20 mEq PO DAILY 30 days HPI HPI Follow up post cardiac cath: Details: Silvia is a 79-year-old female with past medical history of morbid obesity, hypertension, diabetes, sleep apnea, COPD, smoking, aortic stenosis status post TAVR 09/2021, mitral stenosis who recently underwent a cardiac catheterization showing moderate LAD stenosis, mitral valve with improved gradient with lower heart rate. She now presents for follow-up. Today she reports she still has swelling in her right lower extremity and only mild swelling in the left lower extremity. She tells me when she takes her Lasix daily she will get leg cramps. She believes this is from low potassium. In the past when she has taken a potassium supplement it helps to relieve the cramping. She tries to keep her legs elevated and has tried compression stockings but does not feel they help. No chest discomfort at rest or with activity. She has chronic shortness of breath with walking which has not changed recently. No PND, orthopnea. No heart palpitations, lightheadedness, presyncope, syncope, falls. Right radial catheterization site is feeling good. Family member is present. [facility] Medical History Morbid obesity Vertigo Seizure Stroke Diabetes HTN (hypertension) Aortic stenosis Nocturnal hypoxemia SHANNON (obstructive sleep apnea) Smoker COPD (chronic obstructive pulmonary disease) Surgical History S/P TAVR (transcatheter aortic valve replacement) Retained myringotomy tube in left ear Family History Father No problems noted. Mother No problems noted. Social History Household Members: Spouse Housing: House Alcohol intake: former Patient Tobacco Use Status: Current everyday Tobacco user Tobacco use type: Cigarette Cigarette Packs Per Day: 2 Cigarettes Per Day: 40.0 Years Smoked: started at 27 years old Second Hand Smoke Exposure: No service: No Review of Systems Const All systems reviewed & are unremarkable except as noted in HPI and below Card Denies chest pain, Denies chest pain at rest, Denies chest pain with activity, Denies syncope, Reports leg edema, Denies lightheadedness, Reports dyspnea, Reports dyspnea on exertion and Denies orthopnea Resp Reports dyspnea and Reports dyspnea on exertion GI Denies no additional complaints Musc Denies no additional complaints Neuro Denies syncope Physical Exam Vital Signs: Last Vital Signs Pulse 102 H 12/04/24 13:48 Pulse Ox 95 12/04/24 13:48 Oxygen Delivery Method Room Air 12/04/24 13:48 Const General: cooperative, comfortable and no acute distress Orientation/consciousness: patient oriented x3 Neck Neck: Yes normal visual inspection and Yes no JVD Resp Effort & Inspection: normal respiratory effort Auscultation: clear to auscultation bilaterally, no rales, no rhonchi and no wheezes Cardio Rate: regular rate Rhythm: regular rhythm Heart sounds: S1 normal heart sound present, S2 normal heart sound present, no murmurs and no rubs Neuro General: patient oriented x3 Extrem Other: pitting edema right lower extremity, no skin breaks Psych Appearance: grossly normal Mental Status: mental status grossly normal Speech and movement: Normal speech and movement present Results Reviewed Results Reviewed: Echo 08/21/24 Conclusions: - 1. Normal LV ejection fraction of 60 65% with mild LVH with impaired relaxation filling pattern 2. Mildly dilated left atrium 3. Normally functioning bioprosthetic aortic valve with mean gradient of 10 mm Hg 4. Moderate to severe calcific mitral stenosis 5. Normal RV systolic pressure 6. No gross pericardial effusion Cardiac catheterization 11/20/2024 left main normal, lad 50-60% mid LAD stenosis, left circumflex minimal luminal irregularities, RCA moderate diffuse disease. Initial heart rate 90 and mean gradient across mitral valve 16 mmHg, heart rate dropped to 70 beats per minute and mean gradient came down to 6-8 mmHg, aortic valve area 2.34 centimeter sq which was not significant. Assessment & Plan Assessment & Plan (1) S/P cardiac catheterization: Comment: 11/20/2024 left main normal lad 50-60% mid LAD stenosis, left circumflex minimal irregularities, RCA moderate diffuse disease, mitral valve area 2.34 centimeter sq, mean mitral gradient 7 mmHg. Code(s): Z98.890 - Other specified postprocedural states Category: Surgical Plan: Right radial catheterization site well healed, easily palpable radial pulse. (2) Mitral stenosis: Code(s): I05.0 - Rheumatic mitral stenosis Category: Medical Plan: History of mitral stenosis with recent echocardiogram showing moderate to severe calcific mitral stenosis, no mitral regurgitation. Cardiac catheterization shows that her mitral stenosis is not significant at this time. Will continue to follow with periodic echocardiograms. Next echo in 1 year. (3) Lower leg edema: Code(s): R60.0 - Localized edema Category: Medical Plan: Lower leg edema, right greater than left which is newer for her in the last few months. Recent ultrasound showed no right lower extremity DVT. She has been on Lasix 20 mg every other day and continues to have swelling. Her swelling is likely multifactorial in nature with obesity, sedentary, diastolic dysfunction, excess fluid intake. Last echo 08/21/2024 showed EF 60-65%, mild LVH with impaired relaxation. Will have her increase Lasix to 20 mg daily. Will give potassium packets 20 mEq every other day. Check labs in 10-14 days. Instructed her to limit fluid intake to 48 oz daily. Follow a low-salt diet, less than 2 g daily. Leg elevation when sitting and use compression stockings if able. Notify PCP if she has increasing redness or pain, fever that could indicate cellulitis. (4) SOB (shortness of breath) on exertion: Code(s): R06.02 - Shortness of breath Category: Medical Plan: Chronic shortness of breath with exertion which is likely multifactorial in nature. She has morbid obesity, sedentary lifestyle, smoking, COPD, sleep apnea as well as mitral stenosis. (5) SHANNON (obstructive sleep apnea): Comment: HAS NOT BEEN ABLE TO USE CPAP, SO SHE IS CONTENT WITH USING OXYGEN AT NIGHT. CONT. TO USE O2 2L/MT AT NIGHT . SHE IS VERY REGULAR IN USING THE O2 AT NIGHT AND SLEEPS WELL. Code(s): G47.33 - Obstructive sleep apnea (adult) (pediatric) Category: Medical Plan: She tells me she has been using her CPAP more consistently. (6) S/P TAVR (transcatheter aortic valve replacement): Comment: 26 mm Medtronic Evolut transcatheter aortic valve replacement, September 2021 Code(s): Z95.2 - Presence of prosthetic heart valve Category: Surgical Plan: History of TAVR 09/2021. Recent echo shows bioprosthetic AVR is functioning normally with mean gradient 10 mmHg. SBE prophylaxis reviewed Plan Time spent on chart review, documentation, interview and assessment I discussed with the patient the findings from her recent cardiac catheterization, emphasizing the cholesterol buildup in the LAD artery, and the need to monitor mitral valve pressure, especially with higher heart rates. The rationale for starting metoprolol was explained, underscoring its benefit in reducing heart rate, enhancing mitral valve efficiency, and minimizing mitral valve pressure issues without significant side effects. The patient was informed of the likelihood of initial fatigue and advised to commence at a half-dose for assessment of tolerance. For leg edema, I communicated the adjustment plan for Lasix dosage to address fluid retention and partnered potassium supplementation to alleviate cramps, with emphasis on monitoring potassium levels through dietary sources and follow-up blood tests. The importance of maintaining heart wellness through smoking cessation was reinforced, and I assured her that the finger numbness, likely due to shingles, is not cardiac-related, alleviating some of her anxiety. Medications: New potassium chloride 20 mEq PO .every other day 30 days 15 ea 3RF metoprolol succinate ER 25 mg PO DAILY 30 tabs 5RF Changed From furosemide 20 mg PO Q48H PRN leg swelling To furosemide 20 mg PO DAILY 90 days 90 tabs 1RF leg swelling Discontinued potassium chloride ER Discontinued Reason: Doctor's Order 20 mEq PO DAILY 30 days 30 tabs 1RF Patient Instructions: - Take metoprolol as prescribed, starting with half a dose for a few days before increasing to a full dose. - Increase Lasix to 20 mg every day and take potassium supplements as advised. - Incorporate potassium-rich foods like bananas and yogurt into your diet. - Return for bloodwork two weeks after starting the new medication regimen. - Monitor for any increase in leg cramps or other side effects and report them. - Follow up in three to four months to assess progress. - Consider strategies and support for smoking cessation to improve cardiac health. - Contact us promptly if you have new symptoms or concerns. Patient was informed and verbally consented to the use of an ambient scribe for clinic note documentation during this visit. Coding Level of Care Code Est Pt Level 4 (84481) Complex EM visit Add On G2211 Diagnoses S/P cardiac catheterization Z98.890 Mitral stenosis I05.0 Lower leg edema R60.0 SOB (shortness of breath) on exertion R06.02 SHANNON (obstructive sleep apnea) G47.33 S/P TAVR (transcatheter aortic valve replacement) Z95.2 Time Spent (min) 30
[2024-12-04 13:48] VITALS: BP 148/58; PULSE 93; O2SAT 95
--- OUTSIDE RECORDS SUMMARY | 2024-12-04 13:50 | XMS_ITS | Patient Health Record ---
[facility] Address [address] [place] [address] Care Team Providers Care Melter Supervisor Name Role Phone Lon Bishop MD Primary Care Provider Phyllis Abrams Unavailable [phone] Allergies Allergen (clinical drug ingredient) Drug/Non Drug [...] Problem Status W/U Status Risk Notes Problem Other hammer toe(s) (acquired), right foot (M20.41) Active confirmed Problem Acquired hammer toe of left foot ([id number]) Other hammer toe(s) (acquired), left foot (M20.42) Active confirmed Problem Polyneuropathy due to diabetes mellitus type I (143769018) Type 1 diabetes mellitus with diabetic polyneuropathy (E10.42) Active confirmed Problem 239199399 Hammertoe of lef t foot (M20.42) Active confirmed Problem 612214777 Hammertoe of right foot (M20.41) Active confirmed Problem [id number] Atherosclerosi s of artery of both lower extremities (I70.203) Active confirmed Plan Of Treatment Pending Test Test Name Order Date 75125-XSEL SKIN LESIONS, 2 TO 4 09/18/19 20 [id number] DYSTROPHIC NAILS ANY # Insurance Providers Payer Name Payer Address Payer Phone Subscriber Number Group Number Insured Name Patient Relationship to Insured Coverage Start Date Coverage End Date Medicare National [employer] [address] [place] [phone] [id number] Silvia Watson Self - patient is the insured for Life [address] [place] [address] [phone] [id number] Silvia Watson Self - patient is the insured Medical (General) History Medical History History ICD Code Anxiety Back,Hip,and Knee pain Broken bones Diabetic type ll Fibromyalgia Numbness COPD Surgical History Surgery Date(Month/Year) Niraj cataract surgery 07/2021
== END 2024-12-04 14:29 | disposition home or self-care (01) ==
LOC: HO.HCS 13:40
PROVIDERS: PCP Internal Medicine; Visit Provider Nurse Practitioner Family
DX: Z98.890 Other specified postprocedural states (principal); I05.0 Rheumatic mitral stenosis; R60.0 Localized edema; R06.02 Shortness of breath; G47.33 Obstructive sleep apnea (adult) (pediatric); Z95.2 Presence of prosthetic heart valve
CPT/HCPCS: 99214; G2211

== ENCOUNTER → 2024-12-04 13:40 | Outpatient (BNVA) | payer MEDICARE, OTHER, SELFPAY | PROVIDERS: PCP Internal Medicine; Visit Provider Nurse Practitioner Family | DX: I10 Essential (primary) hypertension (principal); I05.0 Rheumatic mitral stenosis; R60.0 Localized edema; R06.02 Shortness of breath; G47.33 Obstructive sleep apnea (adult) (pediatric); Z95.2 Presence of prosthetic heart valve; Z98.890 Other specified postprocedural states | CPT/HCPCS: 99212 ==

== ENCOUNTER 2025-03-21 12:51 | Outpatient (AMB) | payer MEDICARE, OTHER, SELFPAY ==
--- NOTE | 2025-03-21 13:04 | MHC.OFFVIS ---
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 Required: No Allergies bee pollen (BEE STINGS) Allergy (Intermediate, Verified 12/04/24 13:48) SWELLING cyclobenzaprine (From Flexeril) Allergy (Mild, Verified 12/04/24 13:48) UNKNOWN Penicillins Allergy (Mild, Verified 12/04/24 13:48) UNKNOWN metformin (From GLUCOPHAGE) Allergy (Unknown, Verified 12/04/24 13:48) SEVER DIARRHEA Medication List - Last Reconciled 03/21/25 by Alberto Caceres MD amitriptyline 100 mg PO BEDTIME aspirin (Adult Low Dose Aspirin) 81 mg PO DAILY atorvastatin 40 mg PO DAILY fluticasone propion-salmeterol 230-21 mcg/actuation 2 inhalations inhalation BID folic acid 0.4 mg PO DAILY furosemide 20 mg PO DAILY PRN furosemide 20 mg PO DAILY 90 days glipizide ER (Glucotrol XL) 5 mg PO DAILY ibuprofen 800 mg PO TID PRN insulin glargine 50 units subcut BID insulin syringe-needle U-100 As directed losartan 25 mg PO DAILY metoprolol succinate ER 25 mg PO DAILY multivitamin 1 tab PO DAILY potassium chloride 20 mEq PO .every other day 30 days HPI Comments Details: Silvia comes for follow-up. She continues to have bilateral leg swelling, right greater than left. She continues to have exertional shortness of breath. Unfortunately she continues to smoke. She also has mostly dependent position. She says she can not walk around much because of bilateral leg pain not very specific whether it is in his joints of the muscles. He said he just hurts and she prefers not to walk. She denies any exertional chest pain. No orthopnea, PND. She also was not currently taking her diuretic on a daily basis. She says this is because she gets cramping and is worried about low potassium levels. She denies any prolonged palpitation irregular heartbeat. No lightheadedness, syncope. [facility] Medical History Morbid obesity Vertigo Seizure Stroke Diabetes HTN (hypertension) Aortic stenosis Nocturnal hypoxemia SHANNON (obstructive sleep apnea) Smoker COPD (chronic obstructive pulmonary disease) Surgical History S/P TAVR (transcatheter aortic valve replacement) Retained myringotomy tube in left ear Family History Father No problems noted. Mother No problems noted. Social History Household Members: Spouse Housing: House Alcohol intake: former Patient Tobacco Use Status: Current everyday Tobacco user Tobacco use type: Cigarette Cigarette Packs Per Day: 2 Cigarettes Per Day: 40.0 Years Smoked: started at 27 years old Second Hand Smoke Exposure: No service: No Review of Systems Const Denies chills, Denies fatigue, Denies fever(s), Denies frequent falls, Denies weakness, Denies weight gain and Denies weight loss ENT Denies dizziness Card Denies chest pain, Denies leg edema, Denies lightheadedness, Denies palpitations, Denies dyspnea, Denies dyspnea on exertion, Denies orthopnea and Denies other (loss of consciousness) Resp Denies cough, Denies dyspnea and Denies dyspnea on exertion GI Denies hematochezia and Denies change in stool character Musc Denies abnormal gait, Denies muscle weakness, Denies numbness, Denies radiating pain into limb and Denies tingling Neuro Denies abnormal gait, Denies dizziness, Denies frequent falls, Denies numbness, Denies tingling and Denies weakness Endo Denies fatigue and Denies palpitations Physical Exam Vital Signs: Last Vital Signs Pulse 99 03/21/25 13:05 BP 146/82 H 03/21/25 13:05 Const General: cooperative, comfortable and no acute distress Orientation/consciousness: patient oriented x3 Neck Neck: Yes normal visual inspection and Yes no JVD Resp Effort & Inspection: normal respiratory effort Auscultation: clear to auscultation bilaterally, no rales, no rhonchi and no wheezes Cardio Rate: regular rate Rhythm: regular rhythm Heart sounds: S1 normal heart sound present, S2 normal heart sound present, no murmurs and no rubs Neuro General: patient oriented x3 Extrem Other: pitting edema right lower extremity, no skin breaks General: No clubbing, No cyanosis and Yes edema (Right greater than left with lymphedema type edema on the right) Psych Appearance: grossly normal Mental Status: mental status grossly normal Speech and movement: Normal speech and movement present Assessment & Plan Assessment & Plan (1) S/P TAVR (transcatheter aortic valve replacement): Comment: 26 mm Medtronic Evolut transcatheter aortic valve replacement, September 2021 Code(s): Z95.2 - Presence of prosthetic heart valve Category: Surgical Plan: Status post transcatheter aortic valve replacement for severe aortic stenosis. Clinically doing well from that perspective. Continue SBE prophylaxis as per ACC/aha guidelines. Continue low-dose aspirin therapy for life. Continue aggressive risk factor modification (2) Mitral stenosis: Code(s): I05.0 - Rheumatic mitral stenosis Category: Medical Plan: Calcific mitral stenosis with discrepancy between cardiac catheterization as well as echocardiogram. Will follow echocardiogram in 6 months time. Continue aggressive vascular risk factor modifications above. Complete smoking cessation advised, she is currently not interested. (3) CAD (coronary artery disease): Code(s): I25.10 - Atherosclerotic heart disease of [place] coronary artery without angina pectoris Category: Medical Plan: Nonobstructive CAD with multiple risk factors. Smoking cessation advised. Otherwise continue low-dose aspirin therapy for life. Aggressive diabetes management goal hemoglobin A1c less than 7%. Goal LDL less than 60 mg/dL. Blood pressure is currently well optimized. Importance of medical therapy was discussed. She understands agrees. (4) Bilateral leg edema: Code(s): R60.0 - Localized edema Plan: Bilateral lower extremity edema which appears to be more dependent edema but incipient diastolic heart failure can not be entirely ruled out. Advised to start Lasix on a daily basis and increase 40 mg for few days followed by 20 mg on a daily basis. Will also prescribed potassium chloride on a daily basis. Follow-up lab work in 2 weeks time. Also leg edema contributed by her dependent position and immobility. Importance of leg elevation as well as compression venous stocking was discussed. Will follow up in the clinic in 6 months time, sooner PRN. Thank you for allowing me to partake in her care Orders: Orders US arterial duplex LE BI Today M79.604 - Pain in right leg, M79.605 - Pain in left leg Medications: New potassium chloride ER (K-Tab) 20 mEq PO DAILY 30 tabs 5RF Changed From furosemide 20 mg PO DAILY PRN leg swelling To furosemide 20 mg PO DAILY Discontinued potassium chloride Discontinued Reason: Doctor's Order 20 mEq PO .every other day 30 days 15 ea 3RF Coding Level of Care Code Est Pt Level 4 (33726) Complex EM visit Add On G2211 Diagnoses S/P TAVR (transcatheter aortic valve replacement) Z95.2 Mitral stenosis I05.0 CAD (coronary artery disease) I25.10 Bilateral leg edema R60.0
[2025-03-21 13:05] VITALS: BP 146/82; PULSE 99
== END 2025-03-21 13:31 | disposition home or self-care (01) ==
LOC: HO.HCS 12:52
PROVIDERS: PCP Internal Medicine; Visit Provider Internal Medicine Cardiovascular Disease
DX: Z95.2 Presence of prosthetic heart valve (principal); I05.0 Rheumatic mitral stenosis; I25.10 Atherosclerotic heart disease of native coronary artery without angina pectoris; R60.0 Localized edema
CPT/HCPCS: 99214; G2211

== ENCOUNTER → 2025-03-21 12:51 | Outpatient (BNVA) | payer MEDICARE, OTHER, SELFPAY | PROVIDERS: PCP Internal Medicine; Visit Provider Internal Medicine Cardiovascular Disease | DX: I05.0 Rheumatic mitral stenosis (principal); I25.10 Atherosclerotic heart disease of native coronary artery without angina pectoris; Z95.2 Presence of prosthetic heart valve; M79.604 Pain in right leg; M79.605 Pain in left leg | CPT/HCPCS: 99212 ==

== ENCOUNTER 2025-05-23 14:21 | Outpatient (REF) | payer MEDICARE, OTHER, SELFPAY ==
--- OUTSIDE RECORDS SUMMARY | 2025-05-17 23:59 | XMS_ITS | Continuity of Care Document ---
Author Organization [facility] Address [address] [place] [address]- Care Team Providers Care Furnace Worker Name Role Phone Lon Bishop MD Primary Care Physician Encounter [facility] Date(s): 04/17/25 - 05/17/25 [facility] Adult [address] [place] [address]- Encounter Type: Triage Allergies, Adverse Reactions, Alerts Substance Criticality Severity Reaction Reaction Severity Status clindamycin Active lidocaine Active Other Food Allergy 1 FOOD WITH TANNEN Active penicillin 2 Active levofloxacin Active Flexeril Active Questran Active oxyCODONE Active Glucophage DIARRHEA Active Vicodin Active 1TICHING AND BLISTERS 2itching, redness Immunizations Given and Recorded Vaccine Date Status Refusal Reason pneumococcal 23-valent vaccine 04/12/24 Recorded pneumococcal 23-valent vaccine 04/17/13 Given influenza virus vaccine, inactivated 03/15/24 Denzel rded influenza virus vaccine, inactivated 06/04/23 Denzel rded [...] influenza virus vaccine, inactivated 04/17/13 Give n SARS-CoV-2(COVID-19)mRNA-LNP vac([id number]) 03/15/24 Recorded SARS-CoV-2(COVID-19)mRNA-LNP vac([id number]) 04/19/23 Recorded RSV vaccine preF3, recombinant 05/10/23 Recorded pneumococcal 20-valent conjugate vaccine 05/05/23 Given [id number] bivalent booster vax 04/13/22 Recorded SARS-CoV-2 (COVID-19) mRNA-1273 vaccine 10/14/21 R ecorded SARS-CoV-2 (COVID-19) mRNA-1273 vaccine 05/12/21 R ecorded SARS-CoV-2 (COVID-19) mRNA-1273 vaccine 09/08/20 R ecorded SARS-CoV-2 (COVID-19) mRNA-1273 vaccine 09/08/20 R ecorded SARS-CoV-2 (COVID-19) mRNA-1273 vaccine 08/10/20 R ecorded SARS-CoV-2 (COVID-19) mRNA-1273 vaccine 08/10/20 R ecorded tetanus/diphtheria/pertussis, acel(Tdap) 03/17/18 Given pneumococcal 13-valent vaccine 12/24/14 Given FluLaval (oldterm) 1 05/23/12 Given FluLaval (oldterm) 2 06/12/10 Given Influenza Virus Vaccine (oldterm) 3 04/04/09 Given Influenza Virus Vaccine (oldterm) 4 05/12/07 Given tetanus-diphtheria toxoids (Td) 08/27/08 Given tetanus-diphtheria toxoids (Td) 10/09/97 Given Influenza Inactive (IM) (oldterm) 5 05/18/06 Given Pneumococcal Vaccine (oldterm) 04/14/05 Given 1Admin Note: Appside 2Admin Note: Appside 3Admin Note: GIVEN BY JEREMY ALMONTE BY NICHOLAS 4Admin Note: given in clinic [...] Date: 08/08/15 Stop Date: 03/05/16 Status: Ordered Medication Dispense Status: Completed Quantity: 1.0 Unit: each Total Allowed Fills: 7 Fills Dispensed: 0 amitriptyline 100 mg oral tablet 2 tablet, By Mouth, Daily at bedtime, # 180 tablet, 1 Refills, Maintenance, 01/08/25 7:32:00 AM EDT, [facility], 165, cm, 11/20/24 11:11:00 EDT, Height, 110.4, kg, 11/20/24 11:11:00 EDT, Dry Weight Start Date: 01/08/25 Status: Ordered Medication Dispense Status: Completed Quantity: 180.0 Unit: tablet Total Allowed Fills: 2 Fills Dispensed: 0 aspirin 81 mg oral delayed release tablet 81 mg, 1, tablet, By Mouth, Daily, # 30 tablet, Refills 0, Maintenance, 03/15/25 2:04:00 PM EDT, Partial fill upon patient request if the prescription is for a schedule II opioid drug. Start Date: 03/15/25 Status: Ordered Medication Dispense Status: Completed Quantity: 30.0 Unit: tablet Total Allowed Fills: 1 Fills Dispensed: 0 atorvastatin 40 mg oral tablet 1 tablet, By Mouth, Daily, # 90 tablet, 1 Refills, Maintenance, 01/15/25 7:09:00 AM EDT, [facility], 165, cm, 11/20/24 11:11:00 EDT, Height, 110.4, kg, 11/20/24 11:11:00 EDT, Dry Weight Start Date: 01/15/25 Status: Ordered Medication Dispense Status: Completed Quantity: 90.0 Unit: tablet Total Allowed Fills: 2 Fills Dispensed: 0 BD Ultra-Fine 33G Lancets See Instructions, # 100 application, Refills 11, Tot. Refills 11, Maintenance, test blood sugar 3 times daily, 12/06/12 11:59:13 AM EDT Start Date: 12/06/12 Status: Ordered Medication Dispense Status: Completed Quantity: 100.0 Unit: application Total Allowed Fills: 12 Fills Dispensed: 0 folic acid 0.8 mg oral tablet 1 tablet = 0.8 mg, By Mouth, Daily, # 90 tablet, 3 Refills, Maintenance, 08/24/23 3:19:00 PM EST, [facility], Partial fill upon patient request if the prescription is for a scheduleII opioid drug., 162, cm, 08/15/23 10:06:00 EST, Height, 117.3, kg, 09/11/21 6:32:00 EST, Dry Weight Start Date: 08/24/23 Status: Ordered Medication Dispense Status: Completed Quantity: 90.0 Unit: tablet Total Allowed Fills: 4 Fills Dispensed: 0 Freestyle Lite Lancets See Instructions, # 300 each, Refills 3, Tot. Refills 3, Maintenance, Dx: Diabetes type 2 (E11.9) 28g Lancets Use to check blood sugars three times a day., 10/12/23 1:22:00 PM EDT, Supply, 162, cm, 08/15/23 10:06:00 EST, Height Start Date: 10/12/23 Status: Ordered Medication Dispense Status: Completed Quantity: 300.0 Unit: each Total Allowed Fills: 4 Fills Dispensed: 0 Freestyle Lite Monitor See Instructions, # 1 each, Refills 0, Tot. Refills 0, Maintenance, TEST BS TID E11.9, 08/05/15 3:29:54 PM EST, Compound Start Date: 08/05/15 Status: Ordered Medication Dispense Status: Completed Quantity: 1.0 Unit: each Total Allowed Fills: 1 Fills Dispensed: 0 Freestyle Lite Test Strips See Instructions, # 300 each, Refills 1, Tot. Refills 1, Maintenance, TEST BS TID E11.9 IDDMII, 05/04/23 2:19:00 PM EDT, REPLACES ONE TOUCH ULTRA TEST STRIPS, Compound, 162, cm, 05/04/23 13:40:00 EDT, Height, 117.3, kg, 09/11/21 6:32:00 EST, Dry Weight Start Date: 05/04/23 Status: Ordered Medication Dispense Status: Completed Quantity: 300.0 Unit: each Total Allowed Fills: 2 Fills Dispensed: 0 Freestyle Lite Test Strips See Instructions, # 300 each, Refills 3, Tot. Refills 3, Maintenance, Dx: Diabetes type 2 (E11.9) Use to check blood sugars three times a day., 10/12/23 1:22:00 PM EDT, Supply, 162, cm, 08/15/23 10:06:00 EST, Height Start Date: 10/12/23 Status: Ordered Medication Dispense Status: Completed Quantity: 300.0 Unit: each Total Allowed Fills: 4 Fills Dispensed: 0 furosemide 20 mg oral tablet See Instructions, 0.5 tablet by mouth daily as needed for edema., # 30 tablet, Refills 11, Tot. Refills 11, Maintenance, 02/09/24 11:54:00 AM EDT, Instructions Replace Required Details, Route to Pharmacy Electronically, [facility], Partial fill upon patient request if the prescription is for a schedule II opioid drug., 162, cm, 02/09/24 11:08:00 EDT, Height Start Date: 02/09/24 Status: Ordered Medication Dispense Status: Completed Quantity: 30.0 Unit: tablet Total Allowed Fills: 12 Fills Dispensed: 0 glipiZIDE 5 mg oral tablet, extended release 1 tablet, By Mouth, Daily, # 90 tablet, 1 Refills, Maintenance, 04/17/25 9:27:00 AM EDT, [facility], 165, cm, 03/15/25 14:03:00 EDT, Height, 110.4, kg, 11/20/24 11:11:00 EDT, Dry Weight Start Date: 04/17/25 Status: Ordered Medication Dispense Status: Completed Quantity: 90.0 Unit: tablet Total Allowed Fills: 1 Fills Dispensed: 0 ibuprofen 800 mg oral tablet 1, tablet, By Mouth, 3 times a day, # 270 tablet, Refills 1, Maintenance, 01/24/25 11:57:00 AM EDT, Route to Pharmacy Electronically, [facility], 165, cm, 11/20/24 11:11:00 EDT, Height, 110.4, kg, 11/20/24 11:11:00 EDT, Dry Weight Start Date: 01/24/25 Status: Ordered Medication Dispense Status: Completed Quantity: 270.0 Unit: tablet Total Allowed Fills: 1 Fills Dispensed: 0 Insulin Syringe, BD Ultra-Fine 0.5 cc 31 G x 8 mm (516in) See Instructions, # 200 each, Refills 3, Tot. Refills 3, Maintenance, Use with lantus insulin twicedaily for IDDMII E11.9 [facility], 10/16/24 2:10:00 PM EDT, Compound, 162, cm, 10/04/24 15:35:00 EDT, Height Start Date: 10/16/24 Status: Ordered Medication Dispense Status: Completed Quantity: 200.0 Unit: each Total Allowed Fills: 4 Fills Dispensed: 0 Lantus 100 u/ml subcutaneous solution See Instructions, INJECT 52 UNITS UNDER THE SKIN TWICE A DAY, # 90 mL, 1 Refills, Maintenance, 12/05/24 10:30:00 AM EDT, [facility], 165, cm, 11/20/24 11:11:00 EDT, Height, 110.4, kg, 11/20/24 11:11:00 EDT, Dry Weight Start Date: 12/05/24 Status: Ordered Medication Dispense Status: Completed Quantity: 90.0 Unit: mL Total Allowed Fills: 1 Fills Dispensed: 0 losartan 25 mg oral tablet 1 tablet, By Mouth, Daily, # 90 tablet, 1 Refills, Maintenance, 01/18/25 1:32:00 PM EDT, [facility], 165, cm, 11/20/24 11:11:00 EDT, Height, 110.4, kg, 11/20/24 11:11:00 EDT, Dry Weight Start Date: 01/18/25 Status: Ordered Medication Dispense Status: Completed Quantity: 90.0 Unit: tablet Total Allowed Fills: 1 Fills Dispensed: 0 Metoprolol Succinate ER 25 mg oral tablet, extended release Refills 0, Maintenance, 12/05/24 10:39:00 AM EDT, Partial fill upon patient request if the prescription is for a schedule II opioid drug. Start Date: 12/05/24 Status: Ordered Medication Dispense Status: Completed Total Allowed Fills: 1 Fills Dispensed: 0 Potassium Chloride ([id number]-[id number]-Vph M20) 20 mEq oral tablet, extended release 0 Refills, Maintenance, 12/05/24 10:39:00 AM EDT, Partial fill upon patient request if the prescription is for a schedule II opioid drug. Start Date: 12/05/24 Status: Ordered Medication Dispense Status: Completed Total Allowed Fills: 1 Fills Dispensed: 0 Problem List Condition Confirmation Course Effective Dates Status Health Status Informant Allergic Rhinitis Confirmed Active Anemia, mild Confirmed Active Anxiety Confirmed Active Aortic stenosis 1, 2, 3 Confirmed Active Benign hypertension Confirmed Active COPD (chronic obstructive pulmonary disease) Confirmed Active CKD (chronic kidney disease) stage 1, GFR 90 ml/min or greater Confirmed Active Colonoscopy 4 Confirmed Active Complex partial seizure disorder 5 Confirmed Active CHF (NYHA class III, ACC/AHA stage C) Confirmed Active Edema of lower extremity Confirmed Active Esophagogastroduodenoscopy [egd] with Closed Biopsy 6 Confirmed Active History of parotitis Confirmed Active Murmur 7 Confirmed Active S/P TAVR (transcatheter aortic valve replacement) Confirmed Active History of CVA (cerebrovascular accident) Confirmed Active Hypercholesterolemia Confirmed Active Irritable bowel syndrome (IBS) Confirmed Active 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 Confirmed Active Low back pain Confirmed Active Depression, major, in partia l remission Confirmed Active Neuropathy in diabetes Confirmed Active Proteinuria Confirmed 12/01/10 Active Serrated polyp of colon 8 Confirmed 11/22/18 Active Severe aortic stenosis Confirmed Active Severe obesity (BMI 35.0-39.9) with comorbidity Confirmed Active Venous stasis dermatitis of both lower extremities Confirmed Active Tobacco abuse Confirmed Active Type 2 diabetes, uncontrolled, with neuropathy Confirmed Active Type II diabetes mellitus with renal manifestations, uncontrolled Confirmed Active Unsteady gait Confirmed Active Venous stasis syndrome Confirmed Active Vitamin D Deficiency Confirmed Active 1Status post TAVR 30755 progresses slightly, repeat [address] [place] [address] 2014 4colonoscopy 2002 normal, repeat 2011 5Dr. Rubén 2014 6endoscopy 2002 normal 7systolic 8repeat screening colonoscopy in 2023 Social History Social History Type Response Sexual Gender identity: Fem raghu. Smoking Status Current every day sm oker; Tobacco user in household: No; Type: Cigarettes entered on: 10/28/16 Sex Sex Representation Female (finding) Patient Care team information Care Team Personnel Name: Lon Bishop MD Position: [facility] Physician - Primary Care Member Role: PCP Address: [address] [place] [address]- Telecom: Name: Danelle Hudson RN Position: [facility] RN Member Role: Primary Care Nurse Care Team Related Persons Name: SIRI POWELL Insurance Providers Guarantor name: MARYSE POWELL Primo Round Plan Information #: 1 Payer: MEDICARE B Payer Identifier: NA Member Number: [id number] Group Number: NA Subscriber Identifier: NA Relationship to Subscriber: self Coverage Type: NA Coverage Verification Date: NA Telecom: NA Address: [facility] Information #: 2 Payer: FOR LIFE Payer Identifier: NA Member Number: [id number] Group Number: NA Subscriber Identifier: NA Relationship to Subscriber: self Coverage Type: For Life--Medicare Supplement Coverage Verification Date: NA Telecom: NA Address:
--- NOTE | ~2025-05-23 | US_ITS ---
EXAMINATION: US NONINVASIVE ASSESSMENT OF THE BILATERAL LOWER EXTREMITY WITH ARTERIAL DUPLEX CLINICAL INFORMATION: Bilateral leg pain COMPARISON: None available. TECHNIQUE: Duplex Doppler techniques with waveform analysis and measurement of velocities in the common femoral, profunda femoris, superficial femoral, popliteal and tibial arteries were performed. The study was performed only at rest. FINDINGS: RIGHT LOWER EXTREMITY DUPLEX ULTRASOUND: Common femoral artery: 98 cm/s. Diastolic flow reversal: Monophasic Profunda femoris artery: 94 cm/s. Diastolic flow reversal: Monophasic Superficial femoral artery (proximal): 89 cm/s. Diastolic flow reversal: Monophasic Superficial femoral artery (mid): 118 cm/s. Diastolic flow reversal: Monophasic Superficial femoral artery (distal): 117 cm/s. Diastolic flow reversal: Monophasic Popliteal artery: 74 cm/s Diastolic flow reversal: Monophasic Posterior tibial artery: 45 cm/s Diastolic flow reversal: Monophasic LEFT LOWER EXTREMITY DUPLEX ULTRASOUND: Common femoral artery: 146 cm/s. Diastolic flow reversal: Biphasic Profunda femoris artery: 169 cm/s. Diastolic flow reversal: Biphasic Superficial femoral artery (proximal): 150 cm/s. Diastolic flow reversal: Biphasic Superficial femoral artery (mid): 198 cm/s. Diastolic flow reversal: Biphasic Superficial femoral artery (distal): 60 cm/s. Diastolic flow reversal: Biphasic Popliteal artery: 91 cm/s Diastolic flow reversal: Biphasic Posterior tibial artery: No flow can be documented. Suspect occluded. US/US arterial duplex LE BI IMPRESSION: Mild atherosclerotic disease on the right and moderate atherosclerotic disease on the left. The left posterior tibial artery appears occluded. Electronically signed by: Shanti Pardo MD 05/23/2025 03:29 PM [facility]
--- OUTSIDE RECORDS SUMMARY | 2025-05-23 17:46 | XMS_ITS | Patient Health Record ---
Author Organization [facility] Address [address] [place] [address] Care Team Providers Care Licensed Mortician Name Role Phone Lon Bishop MD Primary Care Provider Phyllis Abrams Unavailable [phone] Allergies Allergen (clinical drug ingredient) Drug/Non Drug [...] 100-25 MG 1 tablet Orally Once a day; Duration: 30 day(s) Active Pravastatin Sodium A ctive [...] affected area Externally to feet Twice a day; Duration: 30 days Active Immunizations Vaccine Route Administration [...] Problem Acquired hammer toe of right foot (8036966770198227) Other hammer toe(s) (acquired), right foot (M20.41) Active confirmed Problem Acquired hammer toe of left foot (0981968894217700) Other hammer toe(s) (acquired), left foot (M20.42) Active confirmed Problem Polyneuropathy due to diabetes mellitus type I (298198695) Type 1 diabetes mellitus with diabetic polyneuropathy (E10.42) Active confirmed Problem Acquired hammer toe of left foot ([id number]) Hammertoe of left foot (M20.42) Active confirmed Problem Acquired hammer toe of right foot (8540947777736958) Hammertoe of right foot (M20.41) Active confirmed Problem Bilateral atherosclerosis of arteries of lower limbs (disorder) (37310862814932501 ) Atherosclerosis of artery of both lower extremities (I70.203) Active confirmed Plan Of Treatment Pending Test Test Name Order Date 72027-TRXI SKIN LESIONS, 2 TO 4 09/18/19 20 [id number] DYSTROPHIC NAILS ANY # Insurance Providers Payer Name Payer Address Payer Phone Subscriber Number Group Number Insured Name Patient Relationship to Insured Coverage Start Date Coverage End Date Medicare [employer] [address] [place] [phone] [id number] Silvia Watson Self - patient is the insured for Life [address] [place] [address] [phone] [id number] Silvia Watson Self - patient is the insured Medical (General) History Medical History History ICD Code Anxiety Back,Hip,and Knee pain Broken bones Diabetic type ll Fibromyalgia Numbness COPD Surgical History Surgery Date(Month/Year) Niraj cataract surgery 07/2021
== END 2025-05-23 14:22 | disposition home or self-care (01) ==
LOC: HO.US 14:21
PROVIDERS: PCP Internal Medicine; Visit Provider Internal Medicine Cardiovascular Disease
DX: M79.604 Pain in right leg (principal); M79.605 Pain in left leg
CPT/HCPCS: 93925

== ENCOUNTER → 2025-05-23 14:23 | Outpatient (BNV) | payer MEDICARE, OTHER, SELFPAY | PROVIDERS: PCP Internal Medicine; Visit Provider Radiology Diagnostic Radiology | DX: I70.203 Unspecified atherosclerosis of native arteries of extremities, bilateral legs (principal) | CPT/HCPCS: 93925 ==